=== PATIENT | female | born 1935 | race Caucasian/White ===

== ENCOUNTER 2017-09-24 09:15 | Outpatient (CLI) | payer MEDICARE, BC ==
--- NOTE | 2017-09-24 11:36 | CT ---
CTA OF THE ABDOMEN AND PELVIS AND BILATERAL LOWER EXTREMITIES FOR RUNOFF: HISTORY: Bilateral leg pain and night cramps. 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 History of abdominal aortic aneurysm repair. COMPARISON: None. TECHNIQUE: Multiple contiguous axial images were obtained in a CTA of the abdomen, pelvis, and bilateral lower e xtremities for runoff, and 3D sagittal and coronal MIP reformats were performed. FINDINGS: There are multiple cysts in the bilateral kidneys, measuring up to 4 cm in size. The gallbladder has been removed. There is mild enlargement of the common bile duct, which may be a reservoir effect fr om the cholecystectomy. The liver, adrenal glands, spleen, and pancreas are unremarkable. No free a ir, free fluid, or stranding changes are seen in the abdomen or pelvis. A moderate amount of stool is seen in the rectum. The reproductive organs are atrophic. The large a nd small bowel are unremarkable. No abdominal or pelvic lymphadenopathy is seen. The patient is status post aortobifemoral bypass. Moderate atherosclerotic disease is seen within th e aorta. The celiac trunk and SMA are patent, with mild nonfocal atherosclerotic disease. There are two renal arteries on the left and a single renal artery on the right. Mild atherosclerotic disease is seen in the right renal artery. There is occlusion of the [place] distal aorta, above the bifurcation and common iliac arteries. The internal iliac arteries and ek[place] external iliac arteries also do not contain flow. The aortobifemoral bypass graft shows mild narrowing on the right, at the anastomosis, and moderate n arrowing on the left, at the anastomosis. The [place] common femoral arteries show moderate diffuse a therosclerotic disease bilaterally. The profunda femoral arteries are patent. There is moderate dif fuse nonfocal atherosclerotic disease throughout the superficial femoral arteries. This superficial femoral artery disease is slightly more prominent distally. Both popliteal arteries show moderate di ffuse nonfocal atherosclerotic disease. Three-vessel runoff is seen on the left with mild diffuse nonfocal atherosclerotic disease. There is diffuse atherosclerotic disease in the vessels on the right. The anterior tibial artery on the righ t appears occluded with two-vessel runoff on the right. IMPRESSION: 1. Status post aortobifemoral bypass with stenosis of the bypass graft at the femoral artery anastom osis, left greater than right. 2. Moderate diffuse atherosclerotic disease in the superficial femoral arteries and popliteal arteri es. 3. Three-vessel left and two-vessel right runoff with mild to moderate atherosclerotic disease in al l three runoff vessels bilaterally. 4. Bilateral renal cysts. POS: [facility]
[2017-09-24] MEDS ORDERED: Iopamidol 370 76% 100 ML VIAL ONE (13:40)
== END 2017-09-24 09:16 | disposition home or self-care (01) ==
LOC: CT 09:15
PROVIDERS: ATTEND Thoracic Surgery (Cardiothoracic Vascular Surgery)
DX: I70.213 Atherosclerosis of native arteries of extremities with intermittent claudication, bilateral legs (principal); N28.1 Cyst of kidney, acquired
CPT/HCPCS: 75635

== ENCOUNTER 2019-06-01 20:40 | Inpatient (IN) | payer MEDICARE ==
[~2019-06-01 20:40] MED LIST: ISOVUE-370 76%-LOCM 1 ML ONE
[2019-06-01 21:18] LABS: #Lymphocytes 0.6 thou/uL (1.20-3.40); #Monocytes 0.9 thou/uL (0.11-0.59); #Neutrophils 12.4 thou/uL (1.40-6.50); %Basophils 0.3 % (0.0-1.0); %Eosinophils 0.2 % (0.0-10.0); %Lymphocytes 4.6 % (21.0-51.0); %Monocytes 6.2 % (0.0-10.0); %Neutrophils 88.7 % (42.0-75.0); Hemoglobin 13.9 g/dL (12.0-16.0); Mean Corpuscular HGB CONC 33.5 g/dL (32.0-36.0); Mean Corpuscular Hemoglobin 30.7 pg (27.0-31.0); Mean Corpuscular Volume 91.4 fL (78.0-98.0); Mean Platelet Volume 8.2 fL (7.4-10.4); Platelet Count 198 thou/uL (130-400); RBC Distribution Width 13.1 % (11.5-14.5); Red Blood Cell (RBC) Count 4.53 mill/uL (4.20-5.40)
[2019-06-01] MEDS ORDERED: Adacel (T-DAP) 0.5 ML SYRINGE ONE (21:26)
[2019-06-01 21:36] LABS: Bacteria/HPF 4+ HPF (None Seen); Bilirubin Negative (Negative); Blood, Urine Negative (Negative); Clarity Turbid (Clear); Glucose, Urine (Dipstick) Normal (Negative); Leukocyte 500 Leu/uL (Negative); Nitrite Negative (Negative); Protein, Urine (Dipstick) 30 mg/dL (Neg-Trace); RBC/HPF 0-3 HPF (0-3); Squamous Epithelial 0-3 HPF (0-3); Urobilinogen Normal mg/dL (Less than 2)
[2019-06-01 21:37] LABS: WBC/HPF 21-50 HPF (0-3); Yeast-Budding None Seen HPF (None Seen)
[2019-06-01 21:37] LABS: ALT (SGPT) 9 U/L (8-55); AST (SGOT) 15 U/L (5-34); Albumin 4.4 g/dL (3.4-4.8); Alkaline Phosphatase 28 U/L (40-110); Anion Gap 16 mmol/L (10-20); BUN (Urea Nitrogen) 42 mg/dL (9.8-20.1); Bilirubin, Total 0.8 mg/dL (0.2-1.2); Calc. Creatinine Clearance 0 mL/min (70-130); Calcium 10.5 mg/dL (7.8-10.44); Carbon Dioxide 22 mmol/L (23-31); Chloride 105 mmol/L (98-107); Estimated GFR-MDRD 43; Globulin 3.1 g/dL (2.4-3.5); Glucose 157 mg/dL (83-110); Lipase Less than 4 U/L (8-78); Potassium 3.8 mmol/L (3.5-5.1); Protein, Total 7.5 g/dL (6.0-8.3); Sodium 139 mmol/L (136-145)
[2019-06-01 21:59] LABS: CKMB 2.2 ng/mL (0-6.6)
--- NOTE | 2019-06-01 22:00 | CT ---
EXAM: Brain CT scan Without contrast: HISTORY: Injury from trauma COMPARISON: None FINDINGS: Atrophy and chronic white matter ischemic change. No focal mass or midline shift. No intra or extra-axial hemorrhage. The visualized sinuses and mastoids are clear of acute process. IMPRESSION: No mass or bleed or other significant acute intracranial process.
--- NOTE | 2019-06-01 22:05 | CT ---
Exam: Facial bone CT scan without IV contrast: HISTORY: Injury from trauma, unwitnessed fall. FINDINGS: Soft tissue swelling over the left upper cheek and left periorbital region. 1.1 x 1.6 cm diameter lef t frontal sinus osteoma. Minimal sinus mucosal disease involving the ethmoid bulla. No evidence for acute fracture or dislocation. The orbits appear intact. The mandible appears intact. There is some d iffuse bony demineralization. No sinus fluid. IMPRESSION: Left upper facial and periorbital soft tissue swelling without acute fracture or dislocation.
--- NOTE | 2019-06-01 22:09 | CT ---
EXAM: CT scan cervical spineWithout contrast: HISTORY: Injury from a fall, trauma COMPARISON: None FINDINGS: No evidence for acute fracture or facet dislocation. No significant malalignment. No prevertebral soft tissue swelling. Some nodularity involving the thyroid gland with a 1.1 x 1.7 cm diameter densely calcified probable s uperior thyroid nodule. Chronic changes in the lung apices. Bony demineralization. IMPRESSION: No evidence for acute fracture or facet dislocation or other significant acute process.
--- NOTE | 2019-06-01 22:26 | CT ---
EXAM: Chest abdomen and pelvic CT scanwith IV contrast: Thoracic spine CT scan,limitedwith IV contrast: Lumbar spine CT scan limitedwith IV contrast: HISTORY: Injury from trauma COMPARISON: None FINDINGS: Chest abdomen and pelvis CT: No pneumothorax or pleural effusion or pericardial effusion. No mediastinal hematoma. The aorta appears unremarkable Somewhat spiculated appearing right upper lobe nodule measuring 0.9 cm. Pulmonary consultation is reg ards to be considered. Bullous changes and chronic lung changes in the apices as well as some chronic changes in the lung ba ses. Liver:Unremarkable Gallbladder:Status post cholecystectomy with some dilatation of the common duct and central intrahepa tic ducts. Prominent vascular calcifications with focal aneurysmal dilatation of 3.1 cm at the level of distal a aleksandr. Aortobifemoral bypass grafting. Bilateral renal cysts. Minimal wall thickening of the rectal sigmoid portion of the colon as well as some mild dilatation of scattered small bowel loops with some possible mild small bowel wall thickening, nonspecific possibly related to some interval colitis with particular involvement of the rectal sigmoid. Diffuse bone demineralization. Postop internal fixation right hip. Pancreas:Unremarkable Spleen:Unremarkable Kidneys:Unremarkable No intraperitoneal fluid or retroperitoneal hematoma. No evidence for acute fracture or dislocation. IMPRESSION: Spiculated nodule of concern in the right upper lobe. Small abdominal aortic aneurysm. Minimal wall thickening of the rectosigmoid portion of the colon as well as small bowel loops, eviden ce for nonspecific enterocolitis. No evidence for significant acute posttraumatic process in the chest abdomen or pelvis. Thoracic spine CT: IMPRESSION: Multilevel spondylosis with disc osteophytosis and diffuse bony demineralization without acute fractu re. Lumbar spine CT: IMPRESSION: Disc osteophytosis with bony demineralization without acute fracture or dislocation. Multilevel spina l canal stenosis of the lower lumbar spine.
[2019-06-01] MEDS ORDERED: cefTRIAXone\\ROCEPHIN 2 GM VIAL ONE (22:50)
--- NOTE | 2019-06-01 23:10 | RAD ---
Exam: Right finger 2 views: HISTORY: Injury from trauma FINDINGS: Bony demineralization with arthrosis and degenerative changes particularly involving the trapezium fi rst metacarpal joint. Minimal soft tissue swelling. No overt acute fracture. IMPRESSION: Arthrosis and degenerative changes with bony demineralization without overt acute fracture.
--- NOTE | 2019-06-01 23:57 | PDOC.FPRHP ---
- History of Present Illness Chief Complaint: Syncope, Abdominal pain History of Present Illness: Patient is an 83 yo female who presents to [facility] ED after a syncopal episode that occurred earlier today. Patient states that she was walking up to her porch outside her home when she tripped, fell, and hit her head. Of note, the ED provider was given a different story about the patient having an unwitnessed fall, "waking up" on the ground with no memory of falling or why she was laying on the ground. Patient was brought by EMS to the ED and remembers this occurring. She has questionable memory about her fall vs passing out. Her daughter met her at the ED and is unsure of the history of what happened earlier in the day. The patient's daughter relays that the patient has been complaining of cramping in her lower abdomen the past 2 days. Patient states that she currently has some abdominal pain described as aching and cramping. Denies suprapubic pressure or dysuria. States for past few days she has not had much to eat or drink and complains of decreased appetite. Denies nausea/vomiting , fever/chills. ED Course: Given 2g Rocephin. NS 500 cc bolus. Given Tetanus vaccine. - Allergies/Adverse Reactions Allergies Allergy/AdvReac Type Severity Reaction Status Date / Time Penicillins Allergy Severe Anaphylaxis Verified 06/02/19 01:25 - Home Medications Medication Instructions Recorded Confirmed Type Apixaban [Eliquis] 2.5 mg PO BID 06/02/19 06/02/19 History Atorvastatin Calcium [Lipitor] 20 mg PO DAILY 06/02/19 06/02/19 History Citalopram [CeleXA] 10 mg PO DAILY 06/02/19 06/02/19 History Clopidogrel Bisulfate [Clopidogrel] 75 mg PO DAILY 06/02/19 06/02/19 History Digoxin [Digox] 125 mcg PO DAILY 06/02/19 06/02/19 History Fenofibrate 160 mg PO DAILY 06/02/19 06/02/19 History Furosemide 40 mg PO DAILY 06/02/19 06/02/19 History Losartan [Cozaar] 25 mg PO DAILY 06/02/19 06/02/19 History Metoprolol Tartrate 25 mg PO BID 06/02/19 06/02/19 History Multivit-Min/Iron/Folic/Lutein 1 each PO DAILY 06/02/19 06/02/19 History [Multivitamin Women 50 Plus Tab] Nitroglycerin [Nitrostat] 0.4 mg SL Q5MIN 06/02/19 06/02/19 History Potassium Chloride [K-Dur] 20 meq PO DAILY 06/02/19 06/02/19 History Spironolactone 12.5 mg PO DAILY 06/02/19 06/02/19 History Vitamin E 400 unit PO DAILY 06/02/19 06/02/19 History Comments: Current home meds (brought with patient): Atorvastatin, Citalopram, Clopidogrel , Digoxin, Eliquis, Plavix, KCl 20, Fenofibrate, Nitro, Spironolactone, Furosemide, Losartan - History PMHx: Uterine cancer (dx in 1967, denies hysterectomy), HFrEF w/ AICD, Afib, HTN , HLD, AAA, arthritis PSHx: AICD placement, stents, right hip fracture repair, bilateral cataracts, cholecystectomy, aorto bifemoral bypass FHx: daughter with Breast cancer, daughter with Lung and Brain cancer Social: Denies EtOH use. Former smoker, quit 10 years ago. - Review of Systems General: reports: fatigue, other (decreased appetite). denies: fever/chills Eyes: denies: vision changes ENT: denies: nasal congestion Respiratory: denies: cough, congestion, shortness of breath Cardiovascular: denies: chest pain, edema Gastrointestinal: reports: abdominal pain. denies: nausea, vomiting, diarrhea, constipation Genitourinary: denies: dysuria Skin: denies: rashes, itching Musculoskeletal: reports: pain. denies: swelling Neurological: reports: syncope, weakness. denies: numbness, seizure - Vital signs BP: 129/98 HR: 79 RR: 18 Tmax: 98.5F Pox: 92% on RA Wt: 56 kg - Physical Exam Constitutional: NAD, well developed -Constitutional: Alert, oriented to person, place, and time. Questionable historian, group home memory appears intact, questionable recent/short term memory loss HEENT: EOMI, conjunctiva clear, grossly normal vision, MMM -HEENT: hematoma around left orbit and left cheek. laceration to upper and lower lips. dried blood present around mouth and in oropharynx but no active bleeding noted. Neck: supple, FROM, no JVD Chest: no-tender to palpation, no lesions Heart: normal S1/S2, no edema -Heart: Paced rhythm. Systolic murmur over mitral area. Diminished pulses in bilateral lower extremities. Lungs: CTAB, no respiratory distress, no rales/rhonchi, no wheezing Abdomen: soft -Abdomen: TTP over mid-abdomen and suprapubic areas. Mild fluid wave present. Asymmetrical soft bulging area on right mid abdomen. Musculoskeletal: normal tone Neurological: no focal deficit, normal sensation -Neurological: Strength 5/5 in all extremities. -Skin: Poor skin turgor. Multiple lacerations to left face, lips, and fingers. Psychiatric: normal mood and affect FMR H&P: Results - Labs Result Diagrams: 06/01/19 21:06 06/01/19 21:06 Lab results: WBC 14.0 thou/uL (4.8-10.8) H 06/01/19 21:06 Hgb 13.9 g/dL (12.0-16.0) 06/01/19 21:06 Hct 41.4 % (36.0-47.0) 06/01/19 21:06 MCV 91.4 fL (78.0-98.0) 06/01/19 21:06 Plt Count 198 thou/uL (130-400) 06/01/19 21:06 Neutrophils % 88.7 % (42.0-75.0) H 06/01/19 21:06 Sodium 139 mmol/L (136-145) 06/01/19 21:06 Potassium 3.8 mmol/L (3.5-5.1) 06/01/19 21:06 Chloride 105 mmol/L (98-107) 06/01/19 21:06 Carbon Dioxide 22 mmol/L (23-31) L 06/01/19 21:06 BUN 42 mg/dL (9.8-20.1) H 06/01/19 21:06 Creatinine 1.19 mg/dL (0.6-1.1) H 06/01/19 21:06 Glucose 157 mg/dL (83-110) H 06/01/19 21:06 Calcium 10.5 mg/dL (7.8-10.44) H 06/01/19 21:06 Total Bilirubin 0.8 mg/dL (0.2-1.2) 06/01/19 21:06 AST 15 U/L (5-34) 06/01/19 21:06 ALT 9 U/L (8-55) 06/01/19 21:06 Alkaline Phosphatase 28 U/L (40-110) L 06/01/19 21:06 CK-MB (CK-2) 2.2 ng/mL (0-6.6) 06/01/19 21:06 Serum Total Protein 7.5 g/dL (6.0-8.3) 06/01/19 21:06 Albumin 4.4 g/dL (3.4-4.8) 06/01/19 21:06 Lipase Less than 4 U/L (8-78) L 06/01/19 21:06 Urine Ketones Negative mg/dL (Negative) 06/01/19 21:15 Urine Blood Negative (Negative) 06/01/19 21:15 Urine Nitrite Negative (Negative) 06/01/19 21:15 Ur Leukocyte Esterase 500 Chantal/uL (Negative) A 06/01/19 21:15 Urine RBC 0-3 HPF (0-3) 06/01/19 21:15 Urine WBC 21-50 HPF (0-3) A 06/01/19 21:15 Ur Squamous Epith Cells 0-3 HPF (0-3) 06/01/19 21:15 Urine Bacteria 4+ HPF (None Seen) A 06/01/19 21:15 - EKG Interpretation EKG: paced rhythm at 78 bpm T wave inversions in I, II, V5, V6 FMR H&P: A/P - Problem List (1) UTI (urinary tract infection) Current Visit: Yes Status: Acute Qualifiers: Urinary tract infection type: acute cystitis Hematuria presence: without hematuria Qualified Code(s): N30.00 - Acute cystitis without hematuria (2) Syncope Current Visit: Yes Status: Acute Code(s): R55 - SYNCOPE AND COLLAPSE Qualifiers: Syncope type: unspecified Qualified Code(s): R55 - Syncope and collapse (3) Hypertension Current Visit: Yes Status: Acute Code(s): I10 - ESSENTIAL (PRIMARY) HYPERTENSION Qualifiers: Hypertension type: essential hypertension Qualified Code(s): I10 - Essential (primary) hypertension (4) HFrEF (heart failure with reduced ejection fraction) Current Visit: Yes Status: Acute Code(s): I50.20 - UNSPECIFIED SYSTOLIC ( CONGESTIVE) HEART FAILURE Qualifiers: Heart failure chronicity: chronic Qualified Code(s): I50.22 - Chronic systolic (congestive) heart failure - Plan Patient is a 83 year old female who presents with syncope and abdominal pain is admitted for UTI and further syncope workup: #Syncope/Fall -dahl-CT in ED negative for acute pathology -Stress test in AM -Echo in AM -obtain orthostatic vitals -vitals q4hr, strict I/Os -Neuro checks q4h -place on telemetry monitoring -PT/OT consults, appreciate recs #UTI -UA: 500 LE, 30 Protein, 21-50 WBC, Bact 4+ -given Rocephin 2g in ED -will continue Rocephin at 1g q24h (next dose @ 2300 on 06/02) -Urine culture pending #VIRIDIANA vs CKD -BUN 42, Cr 1.19 -half maintenance IVF LR @ 50 ml/hr #Acute Hypoxic Respiratory Failure -patient now requiring 2L of O2 -not previously on O2 at home -continue to monitor with goal to keep O2 sat >92% #Hypertension -BP in ED 129/98 -vitals q4hr -continue home meds: Losartan, Spironolactone -hold home Metoprolol for AM stress test #HFrEF -last Echo unknown -has AICD placed -systolic murmur on exam -will check Transthoracic Echo in AM, if abnormal consider Cardiology consult -continue home med: Furosemide, Digoxin, KCl 20 #AFib -AICD placed -EKG shows paced rhythm at 78, T-wave inversions in I, II, V5, V6 -obtain pacemaker interrogation during this stay, last interrogation unknown -telemetry monitoring -hold home med: Eliquis--due to recent fall with head trauma #Lung Nodule -CT chest in ED shows 0.9 mm spiculated nodule in right upper lobe of lung -consider Pulmonology consult #Abdominal Aortic Aneurysm -CT abdomen in ED shows AAA with 3.1 cm dilatation -previous surgery for aorto-bifemoral bypass #HLD -continue home med: Atorvastatin, Plavix, Fenofibrate #Depression -lost in January 2019, lost daughter in February 2019 to lung & brain cancer -continue home med: Citalopram Diet: Heart healthy, NPO at midnight for stress test VTE: SCDs, home Eliquis held for 12-24 hours given recent fall with head trauma Code: FULL Dispo: Stable, admitted to observation on telemetry unit. Plan for stress test and Echo in AM. Consider Cardiology and Pulmonology consults. Anticipated LOS < 2 days. FMR H&P: Upper Level - Pertinent history 83 year old female presents with possible syncopal episode. Patient poor historian. On questioning, patient reports that she was walking on the front porch toward the house when she fell. She cannot definitively say if she lost consciousness. Patient reports that she remembers falling and her son helping her up from the ground. She has had abdominal cramping/bloating for the past two days but has otherwise felt fine. Patient denies fever, chills, shortness of breath. Patient has history of HFrEF with AICD in place. She has no documented history of CAD. Patient does have history of Afib with pacer, as well as HTN. Patient states she has had decreased appetite today. She last ate/ drank at breakfast. Patient's daughter reports that over the last several weeks , her mentation has declined. She has recently confused dates and lost track of time. Up to this point, patient has been doing well. She performs her own ADL' s. Patient is currently complaining of left sided rib pain. - Pertinent findings General: Alert and oriented x3. Patient in mild amount of distress 2/2 pain from fall. HEENT: EOMI. Dry MM. Blood noted in back of throat on exam. Card: Occasional skipped beat. Systolic murmur. Resp: CTA bilaterally. On oxygen supplementation. Abd: Soft, mild distention, no palpable masses Ext: No cyanosis or edema. Skin: Echymosis on face, limbs, and abdomen. Hemostatic bleeding, evident particularly on face around lips. - Plan Date/Time: 06/01/19 [id number] IMargo, have evaluated this patient and agree with findings/plan as outlined by internet developer resident. Pertinent changes/additions are listed here. Syncopal episode - Questionable based on history - Given EKG changes with inverted twaves in leads I, II and V5, V6, concern for cardiac etiology of syncope; No prior EKG's for comparison - Orthostatics pending - Echo pending; patient with history of HFrEF with AICD - HH diet; NPO 00:00 - Stress test AM; may consider holding off if patient determines that she would not want any interventions. - Concern carotid dopplers or CTA head/neck if further concern arises for stroke /TIA. - Electrolytes WNL - TSH pending. - Mg, P pending - Interrogate pacemaker - PT/OT consulted - Continuous telemetry monitoring s/p ground level fall in geriatric patient - On eliquis - CT brain negative for bleed, will continue to monitor over the next 12-24 hours - Q4h neuro checks - Will hold eliquis for next 12-24 hours - CT abdomen/pelvis, CT chest negative Acute hypoxic respiratory failure - Patient on 2L of O2 satting 94% - Does not use O2 chronically - Does not appear to be in acute HF exacerbation - Continue to monitor and titrate off O2 as tolerated VIRIDIANA vs. CKD - Uncertain of baseline - Continue to monitor - Gentle fluids given history of HFrEF HTN - Continue home BP medications Indeterminate troponins - Continue to trend - EKG changes with inverted t waves in leads I, II, V5, V6 Hx of Afib - On eliquis - Will hold for 12-24 hours - Has pacer HFrEF - Uncertain of baseline EF - Repeat echo pending - AICD in place - Systolic murmur heard on exam - Continue home medications UTI - UA: 500 LE, 30 Protein, 21-50 WBC, Bact 4+ - Given Rocephin 2g in ED - Will continue Rocephin at 1g q24h - Urine culture pending Lung Nodule - CT chest in ED shows 0.9 mm spiculated nodule in right upper lobe of lung - Consider Pulmonology consult Abdominal Aortic Aneurysm - CT abdomen in ED shows AAA with 3.1 cm dilatation - Previous surgery for aorto-bifemoral bypass HLD - Continue home medications Depression - Lost in January 2019, lost daughter in February 2019 to lung & brain cancer - Continue home medication Diet: Heart healthy, NPO at midnight for stress test VTE: SCDs, home Eliquis held for 12-24 hours given recent fall with head trauma Code: FULL Dispo: Stable. Obs on telemetry. Anticipate LOS <48 hours. Addendum - Attending - Attending Attestation Date/Time: 06/01/19 [id number] I personally evaluated the patient and discussed the management with Dr. Patino and Dr. Deborah I agree with the History, Examination, Assessment and Plan documented above with any addition or exceptions noted below. Admit overnight. Treat UTI. Continue work for syncopal episode. Significant trauma with risk for delayed intracerebral bleeding due to plavix and eliquis. Adjust home meds as needed. Monitor for arrhythmias. Trend VS. Would consider SNF if family not able to monitor closely. [place]
[2019-06-02 00:50] LABS: Troponin I 0.046 ng/mL (< 0.028)
[2019-06-02] MEDS ORDERED: Calcium Carbonate 500 MG ChewTAB PO PRN (01:08)
[2019-06-02] MEDS ORDERED: Ondansetron ODT 4 MG TAB PO PRN (01:08)
[2019-06-02] MEDS ORDERED: Senokot S 8.6-50 MG TAB PO PRN (01:08)
[2019-06-02] MEDS: Lactated Ringer's 1,000 ML IV SCH ×2 (01:42→22:56)
[2019-06-02] MEDS: Acetaminophen 325 MG TAB PO PRN ×3 (01:42→17:37)
[2019-06-02] MEDS ORDERED: Nitroglycerin 0.4 MG TAB (25 Tab Bottle) SL PRN (03:30)
[2019-06-02 03:55] LABS: Magnesium 1.5 mg/dL (1.6-2.6); Phosphorus 3.5 mg/dL (2.3-4.7)
[2019-06-02 03:59] LABS: Troponin I 0.034 ng/mL (< 0.028)
--- NOTE | 2019-06-02 06:08 | PDOC.FM ---
- Subjective Subjective: Pt AxO x3. She has pain on her left side of her face and left ribs, the side on which she fell. Otherwise, she denies other symptoms. She reports she has had cardiac stress test and cath in the past. When asked if she would want a cath now, she does not know. She reports being fairly independent and lives with her step-son currently. - Objective MAR Reviewed: Yes Vital Signs & Weight: Vital Signs (12 hours) Temp Pulse Resp BP BP Pulse Ox 06/02/19 04:59 70 18 138/63 93 L 06/02/19 01:12 98.7 F 70 18 108/57 L 94 L 06/02/19 01:08 94 L Weight Weight 56.835 kg Result Diagrams: 06/03/19 06:27 06/03/19 06:27 Phys Exam - Physical Examination Constitutional: NAD HEENT: PERRLA, sclera anicteric Respiratory: no wheezing, clear to auscultation bilateral Cardiovascular: RRR (3/6 systolic murmur) Gastrointestinal: soft, non-tender, no distention, positive bowel sounds Musculoskeletal: no edema, pulses present Neurological: non-focal, moves all 4 limbs Lymphatic: no nodes Psychiatric: normal affect, A&O x 3 Skin: no rash Deviation from normal: Bruising over left face, tenderness over left ribs w/o bruising. Dx/Plan (1) HFrEF (heart failure with reduced ejection fraction) Code(s): I50.20 - UNSPECIFIED SYSTOLIC (CONGESTIVE) HEART FAILURE Status: Chronic Qualifiers: Heart failure chronicity: chronic Qualified Code(s): I50.22 - Chronic systolic (congestive) heart failure (2) Hypertension Code(s): I10 - ESSENTIAL (PRIMARY) HYPERTENSION Status: Chronic Qualifiers: Hypertension type: essential hypertension Qualified Code(s): I10 - Essential (primary) hypertension (3) Syncope Code(s): R55 - SYNCOPE AND COLLAPSE Status: Acute Qualifiers: Syncope type: unspecified Qualified Code(s): R55 - Syncope and collapse (4) UTI (urinary tract infection) Status: Acute Qualifiers: Urinary tract infection type: acute cystitis Hematuria presence: without hematuria Qualified Code(s): N30.00 - Acute cystitis without hematuria - Plan Plan: Patient is a 83 year old female who presents with syncope and abdominal pain is admitted for UTI and further syncope workup: Syncope w/ Fall vs. mechanical ground-level fall -dahl-CT in ED negative for acute pathology -Stress test in AM -Echo in AM -orthostatic vitals pending -vitals q4hr, strict I/Os -Neuro checks q4h -place on telemetry monitoring -PT/OT consults, appreciate recs UTI -UA: 500 LE, 30 Protein, 21-50 WBC, Bact 4+ -given Rocephin 2g in ED -Continue Rocephin at 1g q24h (next dose @ 2300 on 06/02) -Urine culture pending VIRIDIANA vs CKD -BUN 42, Cr 1.19, baseline is not known -half maintenance IVF LR @ 50 ml/hr Acute Hypoxic Respiratory Failure -patient now requiring 2L of O2, not previously on O2 at home, however, she reports she sleeps on 2L O2 at night -continue to monitor, likely will not need O2 during the day Hypertension -BP in ED 129/98 -vitals q4hr -continue home meds: Losartan, Spironolactone -hold home Metoprolol for AM stress test HFrEF -last Echo unknown -has AICD placed -will check Transthoracic Echo in AM, if abnormal consider Cardiology consult -Pt is unsure if she would want surgery/cath, for now will continue w/ plan of stress test for her EKG changes and slightly elevated troponins -continue home med: Furosemide, Digoxin, KCl 20 A-Fib -AICD is pacing -obtain pacemaker interrogation -hold home med: Eliquis--due to recent fall with head trauma Lung Nodule -CT chest in ED shows 0.9 mm spiculated nodule in right upper lobe of lung -consider Pulmonology consult Abdominal Aortic Aneurysm -CT abdomen in ED shows AAA with 3.1 cm dilatation -previous surgery for aorto-bifemoral bypass, extensive smoking history -monitor, no specific intervention required HLD -continue home med: Atorvastatin, Plavix, Fenofibrate Depression -lost in January 2019, lost daughter in February 2019 to lung & brain cancer -continue home med: Citalopram Diet: Heart healthy, NPO at midnight for stress test VTE: SCDs, home Eliquis held for 12-24 hours given recent fall with head trauma Code: FULL Dispo: Stable, tele obs. Addendum - Attending - Attending Attestation Date/Time: 06/03/19 0836 I personally evaluated the patient and discussed the management with Dr. Freitas I agree with the History, Examination, Assessment and Plan documented above with any addition or exceptions noted below- Patient states that just doesn't feel well. Afebrile VSS. A/P: 1) Syncope- stress, echo pending. 2) UTI- continue rocephin and await culture result. 3) Deconditioning- rehab vs SNF vs home health
[2019-06-02] MEDS ORDERED: Magnesium 2 GM/50 ML 2 GM in Premix Bag 1 BAG IVPB SCH (08:45)
[2019-06-02] MEDS ORDERED: Prevnar 13-Val Conj/PF 0.5 ML SYRINGE IM ONE (09:00)
[2019-06-02] MEDS ORDERED: Clopidogrel Bisulfate 75 MG TAB PO SCH (09:00)
[2019-06-02] MEDS: Citalopram 10 MG TAB PO SCH (09:06)
[2019-06-02] MEDS: Potassium Chloride 20 MEQ TAB PO SCH (09:06)
[2019-06-02] MEDS: Digoxin 0.125 MG TAB PO SCH (09:06)
[2019-06-02] MEDS: Vitamin E 400 UNITS CAP PO SCH (09:06)
[2019-06-02] MEDS: Fenofibrate Nanocrystallized 145 MG TAB PO SCH (09:07)
[2019-06-02] MEDS: Atorvastatin Calcium 20 MG TAB PO SCH (09:07)
[2019-06-02] MEDS: Multivitamin W/ Minerals 1 TAB PO SCH (09:07)
[2019-06-02] MEDS: Spironolactone 25 MG TAB PO SCH (09:07)
[2019-06-02] MEDS: Furosemide 40 MG TAB PO SCH (09:08)
[2019-06-02] MEDS: Losartan 25 MG TAB PO SCH (09:08)
--- NOTE | 2019-06-02 17:15 | PRG ---
DATE OF SERVICE: 06/02/2019 Ms. Sousa gives a different history to various physicians asking her questions. Evidently she had some type of syncopal episode and we are in the midst of a workup for this. She is awaiting a stress Myoview and then we will proceed. Job ID: [id number]
--- NOTE | 2019-06-02 19:15 | NM ---
MYOCARDIAL PERFUSION SCAN: Technique: Patient was given 10 mCi Technetium 99M Sestamibi for rest imaging and 32 mCi Technetium 9 9M Sestamibi for rest imaging. Patient was stressed according to Adenosine protocol. Indications: Syncope. Abnormal EKG. FINDINGS: There is a large fixed defect involving the lateral wall. This defect involves the inferior lateral, anterior lateral, and apical lateral regions. Mild periinfarct reversible ischemia in the anterior ap ical portion of this lateral wall defect cannot be completely excluded. Wall motion shows global hypokinesis. Lateral dyskinesis. Ejection fraction recorded at 39%. IMPRESSION: Large fixed defect involving lateral wall with anterolateral, inferolateral, and apical lateral regio ns involved. I cannot exclude mild periinfarct reversible ischemia. POS: KARINA
[2019-06-02] MEDS ORDERED: ADENOSINE 60 MG/20 ML VIAL ONE (19:44)
[2019-06-02] MEDS: cefTRIAXone\\ROCEPHIN 1 GM in Sodium Chloride 0.9% 100 ML IVPB SCH (22:56)
[2019-06-03] MEDS: Acetaminophen 325 MG TAB PO PRN ×2 (04:10→10:14)
--- NOTE | 2019-06-03 06:26 | PDOC.FM ---
- Subjective Subjective: Pt reported she was feeling well and asymptomatic when I saw her this morning. Biggest complaint was rib pain on her left side where she fell and Left wrist pain which is bruised. Nurse paged shortly after and said pt became tachypneic to the 40s upon sitting up and was not able to stand to go to the bathroom. Saturations normal. Pt rested and RR decreased to 20s. Denied Chest pain w/ this episode. - Objective MAR Reviewed: Yes Vital Signs & Weight: Vital Signs (12 hours) Temp Pulse Resp BP BP Pulse Ox 06/03/19 04:03 99 F 70 20 141/64 H 95 06/03/19 01:04 94 L 06/02/19 19:25 99 F 74 18 162/69 H 94 L Weight Admit Weight 56.835 kg Weight 58.241 kg I&O: 06/01/19 06/02/19 06/03/19 06:59 06:59 06:59 Intake Total 2050 Output Total 800 Balance 1250 Result Diagrams: 06/03/19 06:27 06/03/19 06:27 Phys Exam - Physical Examination Constitutional: NAD HEENT: moist MMs Respiratory: no wheezing, no rales, clear to auscultation bilateral Cardiovascular: RRR, no significant murmur, no rub Gastrointestinal: soft, no distention tender to palpation of epigastric region and RUQ Musculoskeletal: no edema, pulses present Neurological: non-focal, moves all 4 limbs Psychiatric: normal affect Skin: no rash Dx/Plan (1) HFrEF (heart failure with reduced ejection fraction) Code(s): I50.20 - UNSPECIFIED SYSTOLIC (CONGESTIVE) HEART FAILURE Status: Chronic Qualifiers: Heart failure chronicity: chronic Qualified Code(s): I50.22 - Chronic systolic (congestive) heart failure (2) Hypertension Code(s): I10 - ESSENTIAL (PRIMARY) HYPERTENSION Status: Chronic Qualifiers: Hypertension type: essential hypertension Qualified Code(s): I10 - Essential (primary) hypertension (3) Syncope Code(s): R55 - SYNCOPE AND COLLAPSE Status: Acute Qualifiers: Syncope type: unspecified Qualified Code(s): R55 - Syncope and collapse (4) UTI (urinary tract infection) Status: Acute Qualifiers: Urinary tract infection type: acute cystitis Hematuria presence: without hematuria Qualified Code(s): N30.00 - Acute cystitis without hematuria - Plan Plan: Patient is a 83 year old female who presents with syncope and abdominal pain is admitted for UTI and further syncope workup: Syncope w/ Fall vs. mechanical ground-level fall -dahl-CT in ED negative for acute pathology -Stress test: cannot rule out dk-infarct reversible ischemia -Echo: EF 40-45%, AICD in place, severe LA dilation, mod RA dilation, mod MR, mod AR -Pacemaker interrogation showing no acute events -being ventricularly paced on tele -orthostatic vitals marginally positive, systolic 18 point decrease from sitting to standing -Gave 500mL bolus this AM for increased tachypnea when standing -vitals q4hr, strict I/Os -PT/OT consults, appreciate recs -Rehab screen pending, rehab vs home health or rehab followed by home health PT/ OT -Cardio Cm) consulted this AM regarding stress test results UTI -Continue Rocephin at 1g q24h, on day 2 -Urine culture pending VIRIDIANA, resolved -BUN 42, Cr 1.19, improved to 0.88 -half maintenance IVF LR @ 50 ml/hr Acute Hypoxic Respiratory Failure -sleeps on 2L O2 at night -continue to monitor, likely will not need O2 during the day Hypertension -vitals q4hr -continue home meds: Losartan, Spironolactone HFrEF -has AICD placed -continue home med: Furosemide, Digoxin, KCl 20 A-Fib, history of -AICD is pacing -obtain pacemaker interrogation -hold home med: Eliquis--due to recent fall with head trauma Lung Nodule -CT chest in ED shows 0.9 mm spiculated nodule in right upper lobe of lung -consider Pulmonology consult outpatient Abdominal Aortic Aneurysm -CT abdomen in ED shows AAA with 3.1 cm dilatation -previous surgery for aorto-bifemoral bypass, extensive smoking history -monitor, no specific intervention required HLD -continue home med: Atorvastatin, Plavix, Fenofibrate Depression -lost in January 2019, lost daughter in February 2019 to lung & brain cancer -continue home med: Citalopram Diet: Heart healthy VTE: SCDs, home Eliquis held for 12-24 hours given recent fall with head trauma Code: FULL Dispo: Stable, tele obs.
[2019-06-03 06:43] LABS: #Eosinphils 0.1 thou/uL (0.0-0.7); #Monocytes 0.9 thou/uL (0.11-0.59); #Neutrophils 12.3 thou/uL (1.40-6.50); %Eosinophils 0.4 % (0.0-10.0); %Lymphocytes 7.1 % (21.0-51.0); %Monocytes 6.3 % (0.0-10.0); %Neutrophils 86.1 % (42.0-75.0); Hemoglobin 13.3 g/dL (12.0-16.0); Mean Corpuscular HGB CONC 33.4 g/dL (32.0-36.0); Mean Corpuscular Hemoglobin 30.7 pg (27.0-31.0); Mean Corpuscular Volume 91.8 fL (78.0-98.0); Mean Platelet Volume 8.1 fL (7.4-10.4); Platelet Count 177 thou/uL (130-400); RBC Distribution Width 13.1 % (11.5-14.5); Red Blood Cell (RBC) Count 4.32 mill/uL (4.20-5.40); White Blood Cell (WBC) Count 14.2 thou/uL (4.8-10.8)
[2019-06-03 07:05] LABS: Anion Gap 14 mmol/L (10-20); BUN (Urea Nitrogen) 31 mg/dL (9.8-20.1); Calc. Creatinine Clearance 43 mL/min (70-130); Calcium 9.3 mg/dL (7.8-10.44); Carbon Dioxide 20 mmol/L (23-31); Chloride 110 mmol/L (98-107); Estimated GFR-MDRD 61; Glucose 122 mg/dL (83-110); Potassium 3.3 mmol/L (3.5-5.1); Sodium 141 mmol/L (136-145)
[2019-06-03] MEDS ORDERED: Sodium Chloride 0.9% 500 ML IV SCH (08:30)
[2019-06-03] MEDS: Potassium Chloride 20 MEQ TAB PO SCH (10:13)
[2019-06-03] MEDS: Losartan 25 MG TAB PO SCH (10:14)
[2019-06-03] MEDS: Spironolactone 25 MG TAB PO SCH (10:14)
[2019-06-03] MEDS: Fenofibrate Nanocrystallized 145 MG TAB PO SCH (10:14)
[2019-06-03] MEDS: Vitamin E 400 UNITS CAP PO SCH (10:14)
[2019-06-03] MEDS: Multivitamin W/ Minerals 1 TAB PO SCH (10:14)
[2019-06-03] MEDS: Citalopram 10 MG TAB PO SCH (10:14)
[2019-06-03] MEDS: Atorvastatin Calcium 20 MG TAB PO SCH (10:14)
[2019-06-03] MEDS: Digoxin 0.125 MG TAB PO SCH (10:14)
[2019-06-03] MEDS: Furosemide 40 MG TAB PO SCH (11:01)
--- NOTE | 2019-06-03 11:12 | CON ---
DATE OF CONSULTATION: HISTORY OF PRESENT ILLNESS: The patient is an 83-year-old woman, who presented after having a fall. The patient has a previous history of coronary artery disease. She also has a history of placement of an automatic implantable cardiac defibrillator. The patient was in her usual state of health when she had a fall. She states she has been feeling weak and had some diarrhea prior to losing consciousness. The patient denied having any chest discomfort. PAST MEDICAL HISTORY: 1. Coronary artery disease. 2. History of triple aortic aneurysm. 3. Peripheral vascular disease. 4. Hypertension. 5. Dyslipidemia. 6. Atrial fibrillation. 7. She also has history of uterine carcinoma. PAST SURGICAL HISTORY: Cholecystectomy, AAA surgery, hip surgery,and back surgery. ALLERGIES: PENICILLIN. MEDICATIONS: 1. Lipitor 40 at bedtime. 2. Citalopram 20 daily. 3. Plavix 75 daily. 4. Digoxin 0.125 daily. 5. Eliquis 2.5 b.i.d. 6. Lasix 40 daily. 7. Losartan 100 daily. 8. Metoprolol 50 daily. 9. Potassium 20 daily. 10. Spironolactone 25 daily. 11. Tricor 160 daily. FAMILY HISTORY: Positive family history of coronary artery disease. SOCIAL HISTORY: Nonsmoker. REVIEW OF SYSTEMS: Noticeable for decreased appetite and weight. PHYSICAL EXAMINATION: GENERAL: Thin woman, who has a bruise over her left orbital. NECK: Showed no jugular venous distention. LUNGS: Clear to auscultation. HEART: Regular rate and rhythm. Normal S1 and S2. 1/6 systolic murmur. ABDOMEN: Nondistended. EXTREMITIES: Showed no edema. VASCULAR: Radial pulses 2+. LABORATORY RESULTS: White blood cell count 14.2, hemoglobin 13.3, hematocrit 39.7, platelets 177. Sodium is 141, potassium 3.3, chloride 110, bicarb 20, BUN 31, and creatinine 0.88, glucose is 122. Troponin 0.034. Her EKG revealed an electronic ventricular pacemaker. Interrogation revealed no atrial fibrillation or ventricular arrhythmias. IMPRESSION: 1. Syncope, probably orthostatic. 2. History of cardiomyopathy. 3. History of AICD placement. 4. History of PTCA and stent placement. 5. History of atrial fibrillation. 6. Hypertension. 7. Dyslipidemia. This patient presents after having a fall. Her defibrillator was interrogated and was unremarkable. Most likely, she was orthostatic. From a cardiac standpoint, she could not be safely kept on Eliquis. We will ask EP to evaluate. We will follow this patient with you through her hospitalizatin. Job ID: [id number] TRUONG
[2019-06-03] MEDS ORDERED: Gabapentin 100 MG CAP PO SCH ×2 (11:15→21:00)
--- NOTE | 2019-06-03 11:20 | RAD ---
EXAM: 3 views of the left wrist HISTORY: Wrist pain after fall COMPARISON: None FINDINGS: 3 views of the left wrist shows no evidence of acute fracture or dislocation. No soft tissu e swelling is seen. Mild first CMC and wrist degenerative changes are present. Vascular calcic lesions are seen. IMPRESSION: No evidence of acute osseous abnormality.
--- NOTE | 2019-06-03 11:58 | PRG ---
DATE OF SERVICE: 06/03/2019 Ms. Sousa is resting quietly in bed. She does complain about some pain and swelling in her left wrist and this will be x-rayed as resulted from trauma. She has been seen in consultation by the Cardiology Service, who felt that her recent syncopal episode was likely due to orthostatic hypotension. We will continue to carefully monitor her blood pressure as well as her blood pressure medications. We will x-ray her left wrist. Job ID: [id number]
[2019-06-03] MEDS: Lactated Ringer's 1,000 ML IV SCH ×2 (17:14→22:08)
--- NOTE | 2019-06-03 21:37 | CON ---
DATE OF CONSULTATION: 06/03/2019 PRIMARY CARE PHYSICIAN: Gerardo Singh MD PRIMARY CARTOGRAPHIC DESIGNER: Mars Perry DO REASON FOR CONSULTATION: Syncope, atrial fibrillation, and INDEPENDENT LIVING SPECIALIST-D. CHIEF COMPLAINT: Syncope. HISTORY OF PRESENT ILLNESS: Ms. Sousa is a very pleasant 83-year-old white female, who is well known to me. She has a history of chronic systolic heart failure due to ischemic cardiomyopathy, Liu INDEPENDENT LIVING SPECIALIST-D implantation, coronary artery disease, chronic atrial fibrillation, and hypertension. She has chronic daily moderate exertional dyspnea, relieved with rest. She had a syncopal episode, which may have been due to dehydration and orthostatic hypotension. She does not remember the episode in details. Her son, with whom she lives, found her on the floor sitting up. He was able to lift her up to a chair. She was brought to the [facility] and admitted for observation. She had significant trauma to her face. She has left-sided pleuritic chest discomfort, which is moderate in severity, where she hit herself after falling. Interrogation of her Liu INDEPENDENT LIVING SPECIALIST-D shows normal function. She is still paced at VVI at a rate of 40. She feels much better since admission. Echocardiogram on 06/02/2019, shows ejection fraction of 40% to 45%, severely dilated left atrium, moderately dilated right atrium, moderate mitral regurgitation, aortic sclerosis, moderate aortic regurgitation, and [id number] tricuspid regurgitation. Her this past summer. Also this year, she had a daughter of cancer. She currently lives with her son. She has a daughter, who is with her today, who lives about 5 miles away. PAST MEDICAL HISTORY: 1. Chronic systolic heart failure. 2. Peripheral vascular disease with percutaneous intervention by Dr. Perry earlier this year. 3. Coronary artery disease, thought not to be a surgical candidate. 4. Chronic atrial fibrillation. 5. Hypertension. 6. Dyslipidemia. 7. Uterine carcinoma. 8. Abdominal aortic aneurysm. PAST SURGICAL HISTORY: 1. Liu INDEPENDENT LIVING SPECIALIST-D. 2. Cholecystectomy. 3. Abdominal aortic aneurysm repair. 4. Hip surgery. 5. Back surgery. ALLERGIES: PENICILLIN. OUTPATIENT MEDICATIONS: 1. Lipitor 40 mg at bedtime. 2. Citalopram 20 mg daily. 3. Plavix 75 mg daily. 4. Digoxin 0.125 mg daily. 5. Eliquis 2.5 mg b.i.d. 6. Lasix 40 mg daily. 7. Losartan 100 mg daily. 8. Metoprolol 50 mg daily. 9. Potassium 20 mEq daily. 10. Spironolactone 25 mg daily. 11. Tricor 160 mg daily. FAMILY HISTORY: Positive for coronary artery disease. SOCIAL HISTORY: As above. She is a nonsmoker. REVIEW OF SYSTEMS: Positive for anorexia and fatigue. Negative for chest discomfort, melena, bright red blood per rectum, hematemesis, unilateral weakness or numbness, speech deficits, or seizures. PHYSICAL EXAMINATION: VITAL SIGNS: Blood pressure 118/60, pulse 68, respiratory rate 12, and oxygen saturation 97% on 2 L nasal cannula. GENERAL: Alert and oriented x4. No apparent distress. Well groomed. Mood and affect, normal. SKIN: Ecchymosis to her left facial area. NECK: No jugular venous distention. CARDIOVASCULAR: Regular rate and rhythm. No murmurs, gallops, or rubs. LUNGS: Clear to auscultation bilaterally. Normal inspiratory effort. EXTREMITIES: No cyanosis, clubbing, or edema. LABORATORY DATA: EKG; atrial fibrillation with biventricular pacing. ASSESSMENT: 1. Syncope, possibly due to orthostasis and dehydration. 2. Trauma after fall. 3. Chronic atrial fibrillation, on Eliquis. 4. INDEPENDENT LIVING SPECIALIST-D. Interrogation today shows normal function. She has chronic atrial fibrillation with no significant high ventricular rates. 5. Coronary artery disease. No evidence of ischemia. 6. Chronic systolic heart failure. Mildly depressed left ventricular systolic function. RECOMMENDATIONS: 1. Agree with discontinuing Eliquis. 2. Consider left atrial appendage closure device. I discussed the procedure at length with the daughter and the patient. 3. Plan to follow up as an outpatient next week, where we will discuss the procedure further. Job ID: [id number]
[2019-06-03] MEDS: cefTRIAXone\\ROCEPHIN 1 GM in Sodium Chloride 0.9% 100 ML IVPB SCH (22:08)
[2019-06-03] MEDS: Gabapentin 100 MG CAP PO SCH (22:08)
[2019-06-04] MEDS ORDERED: Magnesium 2 GM/50 ML 2 GM in Premix Bag 1 BAG IVPB SCH ×2 (01:15→12:00)
[2019-06-04 01:28] LABS: Troponin I 0.024 ng/mL (< 0.028)
[2019-06-04 01:36] LABS: Magnesium 1.7 mg/dL (1.6-2.6); Phosphorus 1.3 mg/dL (2.3-4.7)
[2019-06-04] MEDS ORDERED: PHOS-NAK 1 PKT PACK PO SCH (02:15)
[2019-06-04] MEDS ORDERED: Loperamide HCl 1 MG/7.5 ML UDCUP PO PRN (04:19)
[2019-06-04] MEDS ORDERED: Diphenoxylate HCl/Atropine Tablet PO PRN (04:22)
--- NOTE | 2019-06-04 06:58 | PDOC.FM ---
- Subjective Subjective: Pt sleeping soundly this AM. On NC 3L O2. Baseline for her. Episode of torsades lasting 11 sec at 00:43 on 06/04. At this time her BP was 182/73. Magnesium was drawn and found to be 1.7 so was replaced w/ 2g IV. Phosphorus was 1.3 and replaced orally w/ [id number]. Per nursing 3 BMs overnight so a C-Diff test was ordered. Pt takes loperamide at home, instructions were given to nursing to hold this to avoid QT prolongation. Tmax overnight was 99.8 F. On telemetry pt continues to have frequent, but not sequential runs of PVCs and remains ventricularly paced. - Objective MAR Reviewed: Yes Vital Signs & Weight: Vital Signs (12 hours) Temp Pulse Resp BP Pulse Ox 06/04/19 04:00 98.7 F 76 18 111/53 L 95 06/04/19 00:46 63 182/73 H 06/03/19 19:28 99.8 F H 96 20 150/67 H 94 L Weight Admit Weight 56.835 kg Weight 58.241 kg I&O: 06/02/19 06/03/19 06/04/19 06:59 06:59 06:59 Intake Total 3000 950 Output Total 800 Balance 2200 950 Result Diagrams: 06/03/19 06:27 06/03/19 06:27 Phys Exam - Physical Examination Constitutional: NAD Respiratory: no wheezing, clear to auscultation bilateral Cardiovascular: RRR, no significant murmur Gastrointestinal: soft, non-tender Dx/Plan (1) HFrEF (heart failure with reduced ejection fraction) Code(s): I50.20 - UNSPECIFIED SYSTOLIC (CONGESTIVE) HEART FAILURE Status: Chronic Qualifiers: Heart failure chronicity: chronic Qualified Code(s): I50.22 - Chronic systolic (congestive) heart failure (2) Hypertension Code(s): I10 - ESSENTIAL (PRIMARY) HYPERTENSION Status: Chronic Qualifiers: Hypertension type: essential hypertension Qualified Code(s): I10 - Essential (primary) hypertension (3) Syncope Code(s): R55 - SYNCOPE AND COLLAPSE Status: Acute Qualifiers: Syncope type: unspecified Qualified Code(s): R55 - Syncope and collapse (4) UTI (urinary tract infection) Status: Acute Qualifiers: Urinary tract infection type: acute cystitis Hematuria presence: without hematuria Qualified Code(s): N30.00 - Acute cystitis without hematuria - Plan Plan: Patient is a 83 year old female who presents with syncope and abdominal pain is admitted for UTI and further syncope workup: Syncope w/ Fall vs. mechanical ground-level fall Orthostatic hypotension -dahl-CT in ED negative for acute pathology/fractures -Stress test: cannot rule out dk-infarct reversible ischemia -Echo: EF 40-45%, AICD in place, severe LA dilation, mod RA dilation, mod MR, mod AR -Pacemaker interrogation neg -orthostatic vitals + -PT/OT consults, appreciate recs -Rehab screen pending, rehab vs home health or rehab followed by home health PT/ OT -Cardio consult, appreciate recs. * discontinued lasix, continue spironolactone and losartan * consult EP to evaluate Hypomagnesemia Hypokalemia Hypophosphatemia - monitor and replete prn - labs in AM UTI -Continue Rocephin at 1g q24h, on day 3 -Urine culture: klebsiella pneumoniae, sensitive to everything except nitrofurantoin -Transition to oral abx today, note pt allergy to PCN VIRIDIANA, resolved - monitor Acute Hypoxic Respiratory Failure -sleeps on 2L O2 at night -continue to monitor, likely will not need O2 during the day Hypertension -vitals q4hr -continue home meds: Losartan, Spironolactone HFrEF -has AICD placed -continue home med: Digoxin, KCl 20 - HOLD home lasix A-Fib, history of -AICD is pacing -pacemaker interrogation neg. -hold home med: Eliquis--due to recent fall with head trauma Lung Nodule -CT chest in ED shows 0.9 mm spiculated nodule in right upper lobe of lung -consider Pulmonology consult outpatient Abdominal Aortic Aneurysm -CT abdomen in ED shows AAA with 3.1 cm dilatation -previous surgery for aorto-bifemoral bypass, extensive smoking history -monitor, no specific intervention required HLD -continue home med: Atorvastatin, Plavix, Fenofibrate Depression -lost in January 2019, lost daughter in February 2019 to lung & brain cancer -continue home med: Citalopram Diet: Heart healthy VTE: SCDs, home Eliquis held for 12-24 hours given recent fall with head trauma Code: FULL Dispo: Stable, tele obs
[2019-06-04 08:55] LABS: Anion Gap 15 mmol/L (10-20); BUN (Urea Nitrogen) 26 mg/dL (9.8-20.1); Calc. Creatinine Clearance 39 mL/min (70-130); Calcium 8.5 mg/dL (7.8-10.44); Carbon Dioxide 19 mmol/L (23-31); Chloride 111 mmol/L (98-107); Estimated GFR-MDRD 55; Glucose 128 mg/dL (83-110); Sodium 142 mmol/L (136-145)
[2019-06-04] MEDS: Atorvastatin Calcium 20 MG TAB PO SCH (08:58)
[2019-06-04] MEDS: Citalopram 10 MG TAB PO SCH (08:58)
[2019-06-04] MEDS: Digoxin 0.125 MG TAB PO SCH (08:58)
[2019-06-04] MEDS: Fenofibrate Nanocrystallized 145 MG TAB PO SCH (08:58)
[2019-06-04] MEDS: Losartan 25 MG TAB PO SCH (08:58)
[2019-06-04] MEDS: Vitamin E 400 UNITS CAP PO SCH (08:58)
[2019-06-04] MEDS: Potassium Chloride 20 MEQ TAB PO SCH ×2 (08:58→09:08)
[2019-06-04] MEDS: Gabapentin 100 MG CAP PO SCH ×2 (08:58→20:11)
[2019-06-04] MEDS: Multivitamin W/ Minerals 1 TAB PO SCH (08:58)
[2019-06-04] MEDS: Spironolactone 25 MG TAB PO SCH (08:59)
[2019-06-04 09:00] LABS: Potassium 2.7 mmol/L (3.5-5.1)
[2019-06-04] MEDS ORDERED: Potassium Chloride 20 MEQ in Premix Bag 1 BAG IVPB SCH ×3 (09:15→13:15)
[2019-06-04] MEDS ORDERED: Potassium Chloride 20 MEQ TAB PO SCH ×3 (09:15→17:30)
[2019-06-04] MEDS ORDERED: Potassium Chloride 40 MEQ in Sodium Chloride 0.9% 250 ML 250 ML IVPB SCH (11:00)
--- NOTE | 2019-06-04 12:26 | PDOC.EVN ---
Event Note - Event Note Event Note: Received tiger text from Gisela OSULLIVAN that patient had 15 second episode of torsades de points at 1109. Went back to previous rhythm. Ordered 2g IV of magnesium. Potassium and phosphorus were being replaced this AM. BMP, magnesium, phosphorus recheck ordered.
[2019-06-04 12:43] LABS: Anion Gap 13 mmol/L (10-20); BUN (Urea Nitrogen) 28 mg/dL (9.8-20.1); Calc. Creatinine Clearance 34 mL/min (70-130); Calcium 8.4 mg/dL (7.8-10.44); Carbon Dioxide 20 mmol/L (23-31); Chloride 110 mmol/L (98-107); Estimated GFR-MDRD 47; Glucose 188 mg/dL (83-110); Magnesium 2.4 mg/dL (1.6-2.6); Potassium 2.9 mmol/L (3.5-5.1); Sodium 140 mmol/L (136-145)
--- NOTE | 2019-06-04 12:49 | PRG ---
DATE OF SERVICE: Ms. Sousa has been having some diarrhea and she is C diff toxin positive. We are instituting therapy for this. She is also quite hypokalemic with potassium at 2.7 and this is being corrected. She had a run of torsades last night and was given a dose of intravenous magnesium. She will be following up with her EP physician after discharge. Job ID: [id number]
[2019-06-04] MEDS: Vancomycin HCl 25 MG/ML Oral PO SCH ×3 (13:49→23:35)
[2019-06-04] MEDS: Lactated Ringer's 1,000 ML IV SCH ×2 (13:58→22:23)
--- NOTE | 2019-06-04 14:39 | PRG ---
DATE OF SERVICE: 06/04/2019 SUBJECTIVE: Acute delirium today per her daughter. She has no chest discomfort, syncope, falls, or dyspnea. OBJECTIVE: GENERAL: Alert and oriented at this time. VITAL SIGNS: Temperature 98.7, pulse 76, respiratory rate 12, oxygen saturation 95% on 2 L nasal cannula, and blood pressure 111/53. HEENT: Ecchymosis of her left facial area. CARDIOVASCULAR: Regular rate and rhythm. No murmurs, gallops, or rubs. LUNGS: Clear to auscultation bilaterally. EXTREMITIES: No cyanosis, clubbing, or edema. LABORATORY DATA: Potassium 2.7 and magnesium 1.7. Microbiology positive for C. diff bacteria. Telemetry, 2 episodes of torsades de pointes. IMPRESSION AND PLAN: 1. Hypokalemia. 2. Hypomagnesemia. 3. Chronic atrial fibrillation. 4. Fall. 5. Chronic systolic heart failure. 6. LIBRARY CIRCULATION ASSISTANT-D with normal function. 7. Coronary artery disease. RECOMMENDATIONS: 1. Replace potassium and magnesium. 2. Continue observation on telemetry. 3. Will need left atrial appendage closure device in the future; however, given her C. diff colitis, we will defer at this time. 4. We will reprogram the defibrillator to ensure no pauses during pacing. Job ID: [id number]
[2019-06-04 16:53] LABS: Anion Gap 16 mmol/L (10-20); BUN (Urea Nitrogen) 30 mg/dL (9.8-20.1); Calc. Creatinine Clearance 29 mL/min (70-130); Calcium 8.5 mg/dL (7.8-10.44); Carbon Dioxide 17 mmol/L (23-31); Chloride 109 mmol/L (98-107); Estimated GFR-MDRD 39; Glucose 189 mg/dL (83-110); Potassium 3.8 mmol/L (3.5-5.1); Sodium 138 mmol/L (136-145)
[2019-06-04] MEDS: Enoxaparin Sodium 30 MG/0.3 ML SYRINGE SC SCH (20:11)
[2019-06-04] MEDS ORDERED: Cefdinir 300 MG CAP PO SCH (21:00)
[2019-06-04 21:01] LABS: Anion Gap 16 mmol/L (10-20); BUN (Urea Nitrogen) 36 mg/dL (9.8-20.1); Calc. Creatinine Clearance 23 mL/min (70-130); Calcium 9.3 mg/dL (7.8-10.44); Carbon Dioxide 18 mmol/L (23-31); Chloride 109 mmol/L (98-107); Estimated GFR-MDRD 30; Glucose 182 mg/dL (83-110); Sodium 139 mmol/L (136-145)
[2019-06-05] MEDS ORDERED: Metoprolol Tartrate 5 MG/5 ML VIAL IVP PRN (04:23)
[2019-06-05] MEDS ORDERED: Digoxin 0.5 MG/2 ML AMP SLOW IVP SCH (04:30)
[2019-06-05 04:36] LABS: Base Excess (BEa) -9.6 mEq/L (-2.0 to +3.0); CO2 Tension 44.7 mmHg (35.0-45.0); Calcium, Ionized 1.22 mmol/L (1.12-1.30); Carboxyhemoglobin (COHb) 1.2 gm% (0.0-3.0); Hemoglobin (Hb) 17.1 g/dL (12.0-16.0); O2 Tension (PaO2) 127.3 mmHg (> 60.0); Potassium - ABG Lab 4.97 mmol/L (3.70-5.30)
[2019-06-05 04:38] LABS: Puncture Site RBR; pH, Arterial 7.22 (7.35-7.45)
[2019-06-05 04:39] LABS: ALV-art Gradient 173.325 (0-20)
[2019-06-05] MEDS ORDERED: Pantoprazole 40 MG VIAL IVP SCH (04:45)
[2019-06-05] MEDS ORDERED: Sodium Chloride 0.9% (PF) 10 ML VIAL FS PRN (04:45)
[2019-06-05 04:49] LABS: Band 36 % (5-11); Hemoglobin 17.1 g/dL (12.0-16.0); Lymphocytes 3 % (21-51); MDiff Complete? YES; Mean Corpuscular HGB CONC 31.4 g/dL (32.0-36.0); Mean Corpuscular Hemoglobin 29.6 pg (27.0-31.0); Mean Corpuscular Volume 94.3 fL (78.0-98.0); Mean Platelet Volume 8.6 fL (7.4-10.4); Metamyelocyte 2 % (0-0); Monocytes 6 % (0-10); Neutrophil 53 % (42-75); Platelet Count 307 thou/uL (130-400); RBC Distribution Width 13.6 % (11.5-14.5); Red Blood Cell (RBC) Count 5.79 mill/uL (4.20-5.40); White Blood Cell (WBC) Count 37.1 thou/uL (4.8-10.8)
--- NOTE | 2019-06-05 05:37 | PDOC.FM ---
- Subjective Subjective: Pt complains of some abdominal pain. She has some shortness of breath even on BiPap. Two daughters and grand daughter at bedside. - Objective MAR Reviewed: Yes Vital Signs & Weight: Vital Signs (12 hours) Temp Pulse Pulse Pulse Resp Resp Resp 06/05/19 05:07 111 H 06/05/19 03:57 93 120 H 30 H 30 H 06/04/19 19:15 98.3 F 100 22 H BP BP BP Pulse Ox 06/05/19 05:07 06/05/19 03:57 131/61 120/75 06/04/19 19:15 113/59 L 96 Weight Admit Weight 56.835 kg Weight 58.241 kg Most Recent Monitor Data Heart Rate from ECG 113 NIBP 81/53 NIBP BP-Mean 62 Respiration from ECG 30 SpO2 95 I&O: 06/03/19 06/04/19 06/05/19 06:59 06:59 06:59 Intake Total 3000 950 2200 Output Total 800 Balance 2200 950 2200 Result Diagrams: 06/05/19 04:10 06/05/19 07:12 Phys Exam - Physical Examination Mild respiratory distress Neck: no JVD Cardiovascular: RRR, no significant murmur Distended with tenderness to palpation, tempanic to percussion in all quads Musculoskeletal: no edema, pulses present Neurological: moves all 4 limbs Psychiatric: normal affect Skin: cap refill <2 seconds Dx/Plan (1) C. difficile colitis Code(s): A04.72 - ENTEROCOLITIS D/T CLOSTRIDIUM DIFFICILE, NOT SPCF RECUR Status: Acute (2) Acute respiratory failure with hypoxia Code(s): J96.01 - ACUTE RESPIRATORY FAILURE WITH HYPOXIA Status: Acute (3) Syncope Code(s): R55 - SYNCOPE AND COLLAPSE Status: Acute Qualifiers: Syncope type: unspecified Qualified Code(s): R55 - Syncope and collapse (4) UTI (urinary tract infection) Status: Acute Qualifiers: Urinary tract infection type: acute cystitis Hematuria presence: without hematuria Qualified Code(s): N30.00 - Acute cystitis without hematuria (5) HFrEF (heart failure with reduced ejection fraction) Code(s): I50.20 - UNSPECIFIED SYSTOLIC (CONGESTIVE) HEART FAILURE Status: Chronic Qualifiers: Heart failure chronicity: chronic Qualified Code(s): I50.22 - Chronic systolic (congestive) heart failure (6) Hypertension Code(s): I10 - ESSENTIAL (PRIMARY) HYPERTENSION Status: Chronic Qualifiers: Hypertension type: essential hypertension Qualified Code(s): I10 - Essential (primary) hypertension - Plan Plan: This is an 83 yo female with a pmh of HTN, HLD, Afib, HFrEF, AAA with bypass, depression Acute hypoxic respiratory failure -Likely secondary abdominal distension, metabolic acidosis -Currently on bipap, will continue respiratory support, ultimate care depends on family's wishes Sepsis 2/2 C. diff colitis with ileus -Currently on PO vancomycin, although pt had NG tube on intermitant suction -IV metronidazole -Bolus LR currently -Consider pressors if BP drops -Dr. Cervantes has been consulted and discussed options of surgery or comfort measures at this time. Family is present and discussing options -Pending lactic acid and CMP -Pt made DNAR this morning, family will continue discussing options Acidosis -Likely 2/2 above -Fluid recussiation Orthostatic hypotension with syncope and fall -Original cc -Pt had run of torsades de pointes -Echo Shows EF 40-45% Klebsiella pneumoniae UTI -Continue rocephin VIRIDIANA, resolved HTN -Hold meds HFrEF -AICD in place, shut off this AM by company A-fib -AICD -Holding Eliquis with recent fall Lung nodule -Outpt pulmonology consult if appropriate AAA -CT shows AAA with 3.1cm dilation -Previous surgery for aorto-bifemoral bypase HLD -Hold meds Depression -Hold home meds Addendum - Attending - Attending Attestation Date/Time: 06/05/19 1027 I personally evaluated the patient and discussed the management with Dr. Kumar. I agree with the History, Examination, Assessment and Plan documented above with any addition or exceptions noted below. 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 She is currently on Bipap. CT scan performed and awaiting further surgical recs. Needs aggressive fluids due to severe hemoconcentration. Discussion with family about goals of care now that DNAR. Pulm on board. Next steps pending surgical recs.
[2019-06-05] MEDS ORDERED: Lorazepam 2 MG/ML VIAL SLOW IVP PRN ×2 (05:40→21:04)
[2019-06-05] MEDS ORDERED: cefTRIAXone\\ROCEPHIN 1 GM in Sodium Chloride 0.9% 100 ML IVPB SCH (06:00)
[2019-06-05] MEDS ORDERED: Lactated Ringer's 250 ML IV SCH (06:00)
--- NOTE | 2019-06-05 06:15 | PDOC.EVN ---
Event Note - Event Note Event Note: [facility] was notified of a Code Green for Mrs. Sousa at approximately 0400 on . Upon arrival, Mrs. Gilberts O2Sats were dropping to the low 70s on 2L Nasal Canula. Her inspiratory effort was poor and she seemed mildly confused and difficult to converse with. Her Nasal Canula flow rate was increased to 5L, with no improvement, and then switched to a Non-Rebreather Make, also with no improvement. The decision was made to place Mrs. Sousa on BiPap and transfer her to the ICU for further evaluation. At this time it was found that her abdomen was severly distended. At this time we got a CXR and KUB. CXR showed decreased lung space but no other acute findings. The KUB showed concerns for ileus vs obstruction vs Toxic Megacolon. At this time ABG was done showing ph of 7.22 and pco2 of 44. At this time we were notified her Hgb to be 17 and WBC to be 37.2. At this time all other labs was pending. We then consulted Dr. Lin (pulm/crti), and Dr. Cervantes (General Surgery) due to concern for Toxic Megacolon. At their recommendations they stated she needed to be intubated and needed a CT of her abdomen. It should be noted prognosis was poor. Her mental status continued to declined and her daughters were brought into the room to help determine an appropriate course of action, specifically with regard to the need to intubate or proceed with palliative measures and a removal of her Full Code status. Mrs. Sousa's daughters determined that it was appropriate to remove her Full Code Status and proceed with palliative measures rather than attempt to undergo intubation and possible surgery. A 1L bolus of LR was administered to help maintain adequate MAP, and additional comfort measure were implemented to ensure adequate pain control. Pt was kept on BIPAP for now. Also pt has AICD and pacemaker in place. After talking with the family we have ordered to have the device shut off. We are awaiting palliative care consult. Attending Note: I was present for the above documented event. Agree with documentation. will continue Bipap for now. NG placed. unstable foe CT at this time. Ab xray performed. Gen Surg contacted for survere c diff with ileus vs megacolon. Monitor closely. Ford
[2019-06-05 06:23] LABS: Digoxin 0.72 ng/mL (0.8-2.0)
[2019-06-05] MEDS ORDERED: Dextrose 5% in Water 1,000 ML IV SCH (06:30)
[2019-06-05] MEDS: Lactated Ringer's 1,000 ML IV SCH ×3 (06:30→09:41)
--- NOTE | 2019-06-05 07:35 | CON ---
DATE OF CONSULTATION: 06/05/2019 CONSULTING PHYSICIAN: Nayeli Walker MD REASON FOR CONSULTATION: Acute abdomen, suspected toxic megacolon. HISTORY OF PRESENT ILLNESS: The patient is an 83-year-old white female. She was hospitalized four days ago after a fall at home. She was felt to potentially have problems related to urinary tract infection and was admitted to the hospital and placed on IV antibiotics. She has been evaluated over the past few days by Cardiology. Early this morning, she developed hypoxia that was resistant to oxygen administration. She was noted to have developed abdominal distention. X-rays were obtained revealing findings potentially consistent with a megacolon. She was incidentally diagnosed with Clostridium difficile diarrhea yesterday morning. Her urinary tract infection was subsequent to Klebsiella. She was transferred to the Intensive Care Unit. The plan earlier this morning was to intubate her and obtain an urgent CT scan of abdomen and pelvis. Upon my arrival, this has not been performed as the patient's family had arrived and felt that she should be a "do not resuscitate" status and felt that she should not have surgery. The patient is currently on BiPAP. She is arousable and alert, and she tries to communicate, but it is hard to hear her through the mask. She does respond appropriately to pain. Metabolic panel that was ordered for this morning has not yet been done. Last metabolic panel was 8 o'clock last night. It is noted that her renal function has deteriorated with her creatinine dropping from 1.1 to 1.6. She was apparently not administered extra IV fluids overnight. Her hemoglobin on the 15 was 13.3; this morning, it is 17.1, that is likely consistent with significant dehydration/hypovolemia. It is also noted that she has a 36% bandemia. Her white blood cell count is 37.1 this morning. Her ABG from this morning shows significant acidosis with pH of 7.22 in spite of a normal pCO2 of 44.7. PAST MEDICAL HISTORY: 1. Chronic systolic heart failure. 2. Peripheral vascular disease with recent percutaneous intervention this year. 3. Coronary artery disease. 4. Chronic atrial fibrillation. 5. Hypertension. 6. Dyslipidemia. 7. History of uterine carcinoma. 8. History of abdominal aortic aneurysm. PAST SURGICAL HISTORY: 1. Open cholecystectomy. 2. Open abdominal aortic aneurysm. 3. Hysterectomy. 4. Hip surgery. 5. Back surgery. ALLERGIES: PENICILLIN. OUTPATIENT MEDICATIONS: Include, 1. Lipitor. 2. Escitalopram. 3. Plavix. 4. Digoxin. 5. Eliquis. 6. Lasix. 7. Losartan. 8. Metoprolol. 9. Spironolactone. 10. TriCor. PERSONAL AND SOCIAL HISTORY: She is recently . Her in January of this year. She has several children and two of her daughters are present at bedside. She does not smoke. REVIEW OF SYSTEMS: Otherwise unremarkable. PHYSICAL EXAMINATION: VITAL SIGNS: She has been afebrile during her hospitalization. Her heart rate was stable, less than 100 up until early this morning when she became tachycardic with a heart rate of 111. She remains tachycardic currently with a heart rate of between 108 and 130. She has been hypotensive this morning with blood pressure varying between 80/50 and 110/70. Her oxygen saturation is currently improved in the mid 90s on BiPAP. LUNGS: Appear to be clear to auscultation. ABDOMEN: Distended, protuberant and diffusely tender. I am not able to appreciate bowel sounds currently. RECTAL EXAMINATION: She has some degree of anal sphincter stenosis and digital exam seems to be somewhat uncomfortable, but her rectal vault appears to be empty. There is no evidence of stool or blood within her rectal vault currently. EXTREMITIES: Unremarkable. LABORATORY DATA: As mentioned, some of her labs are pending for this morning. Her metabolic panel is pending as well as a lactate level. ASSESSMENT AND PLAN: The patient who appears to be decompensated secondary to potentially-complicated colitis related to Clostridium difficile colitis. The KUB, this is based upon is difficult to interpret. I recommend a CT scan of her abdomen to allow me to better evaluate her abdominal contents. This should be done without contrast given her progressive renal function decline yesterday. She has been given a liter bolus of LR currently. Dr. Karl Lin, has seen her from a Critical Care standpoint. I spoke with the family at length at bedside in the Intensive Care Unit. I explained that if she does have what appears that she has (megacolon related to worsening/fulminant Clostridium difficile colitis), then her decline currently is ominous and the only intervention is likely to make a difference is an urgent exploratory laparotomy with subtotal colectomy and ileostomy creation. The family is uncertain, if they want to proceed with intubation of the patient much less surgery. Dr. Lin feel she is stable for CT scan with her on BiPAP and this will be obtained and her remaining laboratory studies will be evaluated. The patient's family will discuss among themselves and apparently another brother is due to arrive. If they decide to proceed with intervention, depending upon findings of CT scan and laboratory studies, I would likely recommend exploratory laparotomy that could be performed urgently today. If they decide against intervention, then supportive medical management is the best we can do and she would still likely succumb to her disease. Job ID: [id number]
--- NOTE | 2019-06-05 08:08 | CON ---
DATE OF CONSULTATION: 06/05/2019 35 minutes of critical care time. REASON FOR CONSULTATION: ICU admission for respiratory failure related to acute metabolic acidosis from C difficile colitis. HISTORY OF PRESENT ILLNESS: This patient was admitted to the [facility] on 06/01/2019. She is 83 years old. She had a syncopal episode prior to admission where she had fallen and hit her head. She was diagnosed with a UTI and started on antibiotics. In following the patient's clinical course, the patient began decompensating yesterday demonstrating mental status changes. She was transferred to the ICU this morning for progressive respiratory distress. I have been told she has had a couple episodes of torsade during this hospitalization. Between the time I was called and the time I arrived, the family has made the patient a DNR and refused intubation. PAST MEDICAL HISTORY: 1. Uterine cancer. 2. Congestive heart failure. 3. Atrial fibrillation. 4. Hypertension. 5. Hyperlipidemia. 6. Abdominal aortic aneurysm. 7. Arthritis. PAST SURGICAL HISTORY: 1. AICD placement. 2. Coronary stent placement. 3. Right hip fracture repair. 4. Bilateral cataract surgery. 5. Cholecystectomy. 6. Aortofemoral bypass. FAMILY MEDICAL HISTORY: Remarkable for breast cancer, lung cancer, and brain cancer. SOCIAL HISTORY: Former smoker, quit 10 years ago. Does not consume alcohol. REVIEW OF SYSTEMS: Impossible to obtain accurately as the patient is on BiPAP. ALLERGIES: PENICILLIN. PHYSICAL EXAMINATION: VITAL SIGNS: Heart rate 92, blood pressure 83/50, O2 saturation 96%, and respiratory rate 27. GENERAL: The patient is an elderly female, who looks acutely ill. HEENT: She has a left periorbital bruise. Oropharynx is dry. NECK: No adenopathy or JVD. LUNGS: Tachypneic with clear breath sounds. CARDIOVASCULAR: S1, S2. Tachycardic. No murmur. ABDOMEN: Grossly distended and tympanic, tender to mild palpation. EXTREMITIES: Muscle wasting. No cyanosis or edema. LABORATORY DATA: White blood cell count 37.1, hematocrit 54.6, and platelet count 307. PH of 7.22, pCO2 of 45, pO2 of 127. Sodium 139, potassium , chloride 109, CO2 of 18, BUN 36, creatinine 1.6, glucose 180 (the chemistry was done on 06/04). Chemistry from today was apparently drawn, but the result is pending. Her KUB shows dilated colon. Chest x-ray demonstrates AICD with wires in a biventricular position, also has atrial leads, clear lung ang; for the most part, no evidence of effusion. ASSESSMENT: 1. Clostridium difficile colitis. 2. Acute respiratory failure secondary to profound metabolic acidosis. 3. Metabolic acidosis. 4. Hemoconcentrated. PLAN: This patient is likely to succumb if the current situation is not addressed with more aggressive fluid resuscitation and possible surgical intervention. We will discuss. Job ID: [id number]
--- NOTE | 2019-06-05 08:09 | RAD ---
PORTABLE SUPINE ABDOMEN: Date: 06/05/19 INDICATION: Abdominal distention. Positive C.Diff. FINDINGS: Lower chest and upper abdomen imaged. There is gaseous distention of the stomach. There is gaseous di stention of visualized small bowel. There is gas in the visualized large bowel. A rounded calcification overlying the right upper quadrant could potentially represent a gallstone. IMPRESSION: Incomplete evaluation of the abdomen on this 1 view portable supine projection. Gaseous distention of small bowel appears nonspecific. Question gallstone. POS: OFF
--- NOTE | 2019-06-05 08:10 | RAD ---
PORTABLE CHEST: HISTORY: Decreased O2 sat. Dyspnea. CCU followup. COMPARISON: 05/24/2016. There is left basilar atelectasis and/or infiltrate obscuring the CP angle. Mild cardiomegaly is sta ble. Vascular and interstitial markings are prominent but stable from prior exam. AICD leads again noted. IMPRESSION: Question a new infiltrate or atelectasis to the left lung base. Chronic-appearing lung findings othe rwise appear stable. POS: OFF
[2019-06-05 08:14] LABS: ALT (SGPT) 15 U/L (8-55); AST (SGOT) 25 U/L (5-34); Albumin 2.5 g/dL (3.4-4.8); Alkaline Phosphatase 51 U/L (40-110); Anion Gap 16 mmol/L (10-20); BUN (Urea Nitrogen) 45 mg/dL (9.8-20.1); Bilirubin, Total 0.4 mg/dL (0.2-1.2); Calc. Creatinine Clearance 14 mL/min (70-130); Calcium 8.4 mg/dL (7.8-10.44); Carbon Dioxide 15 mmol/L (23-31); Chloride 111 mmol/L (98-107); Estimated GFR-MDRD 17; Globulin 2.7 g/dL (2.4-3.5); Glucose 203 mg/dL (83-110); Potassium 4.8 mmol/L (3.5-5.1); Protein, Total 5.2 g/dL (6.0-8.3); Sodium 137 mmol/L (136-145)
--- NOTE | 2019-06-05 08:16 | CT ---
CT Abdomen Pelvis WO Con: 06/05/2019 6:51 AM HISTORY: GI bleed and abdominal distention COMPARISON: 06/01/2019 TECHNIQUE: Multiple contiguous axial images were obtained and a CT of the abdomen and pelvis without IV contrast . Coronal and sagittal reformats were performed. FINDINGS: This examination is limited for the evaluation of solid organs and vascular structures due to the lac k of intravenous contrast. Lower Chest: Atelectasis in the lung bases. Abdomen: Liver: within normal limits. Bile Ducts: Normal caliber. Gallbladder: Removed Pancreas: within normal limits. Spleen: within normal limits. Adrenals: within normal limits. Kidneys: Multiple simple cysts measuring up to 4.2 cm in size. There is a small hyperdense cyst in th e lower pole the left kidney. Pelvis: Reproductive Organs: Atrophic uterus. Ureters: within normal limits. Bladder: within normal limits. Bowel: The colon is mildly distended with fluid and air. The small bowel is normal in caliber. A smal l bowel feces sign is seen within one loop of more distal small bowel. This loop is normal in caliber. An NG tube is seen in the stomach. Mesenteric Lymph Nodes: No enlarged mesenteric lymph nodes. Peritoneum: Mild diffuse ascites. Vessels: Atherosclerotic calcifications in the aorta. Severe atherosclerotic disease is seen in the n ative common iliac arteries. The patient has had an aortofemoral bypass. Retroperitoneum: within normal limits. Abdominal Wall: within normal limits. Bones: Degenerative changes in the spine. IMPRESSION: 1. No evidence of bowel obstruction 2. Mild ascites 3. Bilateral renal cysts
[2019-06-05] MEDS: Vancomycin HCl 25 MG/ML Oral PO SCH ×2 (09:40→11:27)
[2019-06-05] MEDS: Potassium Chloride 20 MEQ TAB PO SCH (09:41)
--- NOTE | 2019-06-05 09:59 | PDOC.PALCO ---
Palliative Care Consult - Consult Details Requesting Physician: Dr Walker Reason for Consult: goals of care, advance directives assistance, complex decision-making Family Members Present: Daughter Donna and grandreta - Pertinent HPI Recent admission to the hospital s/p fall at home. Admitted to the hospital for further evaluation of syncopal episode, heart failure, UTI. 06/05 patient had episode of respiratory distress and required transfer to CCU, on BiPap and awaiting result of CT and discussion with Dr Galeana to determine as to proceed with surgery for management of septic zaid colon. - Social History Smoking Status: Former smoker Smoking: quit greater than 1 year Alcohol Use: none Drug Use History: none Living Situation: independent, other (Family member lives with patient, she lost her in January 2019) - Medications MAR Reviewed: Yes - Allergies Allergies/Adverse Reactions: Allergies Allergy/AdvReac Type Severity Reaction Status Date / Time Penicillins Allergy Severe Anaphylaxis Verified 06/02/19 01:25 - Subjective on BiPap, lethargic ROS: unable to determine - Objective Vital Signs: Vital Signs - Most Recent Temp Pulse Resp BP Pulse Ox 98.3 F 72 30 H 131/61 91 L 06/04/19 19:15 06/05/19 09:27 06/05/19 03:57 06/05/19 03:57 06/05/19 04:16 Palliative Performance Scale: 20 - Physical Exam Constitutional: moderate distress HEENT: moist MMs, sclera anicteric, EOMI Deviation from normal: labored respirations Cardiovascular: irregular Deviation from normal: Distended Deviation from normal: Oriented to self - Problem List (1) Palliative care encounter Code(s): Z51.5 - ENCOUNTER FOR PALLIATIVE CARE Current Visit: Yes Status: Acute (2) Acute respiratory failure with hypoxia Code(s): J96.01 - ACUTE RESPIRATORY FAILURE WITH HYPOXIA Current Visit: Yes Status: Acute (3) C. difficile colitis Code(s): A04.72 - ENTEROCOLITIS D/T CLOSTRIDIUM DIFFICILE, NOT SPCF RECUR Current Visit: Yes Status: Acute (4) HFrEF (heart failure with reduced ejection fraction) Code(s): I50.20 - UNSPECIFIED SYSTOLIC (CONGESTIVE) HEART FAILURE Current Visit: Yes Status: Chronic Qualifiers: Heart failure chronicity: chronic Qualified Code(s): I50.22 - Chronic systolic (congestive) heart failure - Plan/Recommendations Plan: Discussion family in relation to current health situation. Wishes to have patient remain a DNAR, will wait until Dr Galeana determines if patient able to proceed with surgery, then family believes that it is in the best interest of the patient to proceed with surgery. Palliative Care will continue to support family and patient as they navigate disease trajectory and complex decisions. [50] minutes spent on this encounter with >50% of the time in counseling and coordination of care. Thank you for this very appropriate consult.
[2019-06-05] MEDS: metroNIDAZOLE 500 MG in Premix Bag 1 BAG IVPB SCH ×3 (11:34→23:01)
[2019-06-05] MEDS: Sodium Bicarbonate 70 MEQ in Dextrose 5% in Water 1,000 ML IV SCH (11:34)
[2019-06-05] MEDS ORDERED: Vecuronium 10 MG VIAL ONE (11:50)
[2019-06-05] MEDS ORDERED: Ondansetron PF 4 MG/2 ML Vial ONE (11:50)
[2019-06-05] MEDS ORDERED: Dexamethasone 20 MG/5 ML VIAL ONE (11:50)
[2019-06-05] MEDS ORDERED: PROPOFOL 200 MG/20 ML VIAL ONE (11:50)
[2019-06-05] MEDS ORDERED: diphenhydrAMINE 50 MG/ML VIAL ONE (11:50)
[2019-06-05] MEDS ORDERED: Calcium Chloride 1 GM/10 ML Abboject SYRINGE ONE (11:50)
[2019-06-05] MEDS ORDERED: Sodium Bicarb 50 MEQ/50 ML VIAL ONE ×2 (11:50→18:02)
[2019-06-05] MEDS ORDERED: EPINEPHrine 1 MG/10 ML Abboject SYRINGE ONE (11:50)
[2019-06-05] MEDS ORDERED: Rocuronium Bromide 10 MG/ML (10ML VIAL) ONE (11:50)
[2019-06-05] MEDS ORDERED: Succinylcholine Chloride 20 MG/ML 10 ml SYRINGE FS ONE (11:50)
[2019-06-05 12:45] LABS: Albumin 3.2 g/dL (3.4-4.8)
[2019-06-05 12:48] LABS: Protein, Total 6.4 g/dL (6.0-8.3)
[2019-06-05 12:49] LABS: Bilirubin, Total 0.5 mg/dL (0.2-1.2)
[2019-06-05 12:50] LABS: Alkaline Phosphatase 60 U/L (40-110)
[2019-06-05 12:53] LABS: ALT (SGPT) 16 U/L (8-55); AST (SGOT) 23 U/L (5-34)
[2019-06-05 13:23] LABS: Hemoglobin 15.7 g/dL (12.0-16.0); Mean Corpuscular HGB CONC 31.1 g/dL (32.0-36.0); Mean Corpuscular Hemoglobin 29.7 pg (27.0-31.0); Mean Corpuscular Volume 95.4 fL (78.0-98.0); Mean Platelet Volume 8.7 fL (7.4-10.4); Platelet Count 257 thou/uL (130-400); RBC Distribution Width 13.7 % (11.5-14.5); White Blood Cell (WBC) Count 36.6 thou/uL (4.8-10.8)
[2019-06-05 13:40] LABS: Lactic Acid 3.8 mmol/L (0.5-2.2)
[2019-06-05 13:44] LABS: ALT (SGPT) 18 U/L (8-55); AST (SGOT) 29 U/L (5-34); Albumin 2.4 g/dL (3.4-4.8); Alkaline Phosphatase 55 U/L (40-110); Anion Gap 13 mmol/L (10-20); BUN (Urea Nitrogen) 48 mg/dL (9.8-20.1); Band 34 % (5-11); Bilirubin, Total 0.4 mg/dL (0.2-1.2); Calc. Creatinine Clearance 14 mL/min (70-130); Calcium 8.2 mg/dL (7.8-10.44); Carbon Dioxide 20 mmol/L (23-31); Chloride 107 mmol/L (98-107); Eosinophils 1 % (0-10); Estimated GFR-MDRD 16; Globulin 2.8 g/dL (2.4-3.5); Glucose 228 mg/dL (83-110); Lymphocytes 3 % (21-51); MDiff Complete? YES; Metamyelocyte 5 % (0-0); Monocytes 7 % (0-10); Myelocyte 1 % (0-0); Neutrophil 49 % (42-75); Platelet Morphology Comment Appears Adequate; Potassium 4.7 mmol/L (3.5-5.1); Protein, Total 5.2 g/dL (6.0-8.3); RBC Morphology Normal; Sodium 135 mmol/L (136-145); Toxic Granulation SLIGHT; Vacuoles SLIGHT
[2019-06-05] MEDS: Norepinephrine 8 MG in Dextrose 5% in Water 242 ML IVPB PRN (15:32)
[2019-06-05] MEDS ORDERED: Fentanyl 100 MCG/2 ML VIAL ONE (16:01)
[2019-06-05] MEDS ORDERED: Levofloxacin 500 mg/D5W 100 ml Premix Bag ONE (17:02)
[2019-06-05] MEDS ORDERED: metroNIDAZOLE 500 MG/100 ML BAG ONE (17:02)
[2019-06-05] MEDS ORDERED: Ketamine 50 MG/ML (10ML VIAL) ONE (17:20)
[2019-06-05] MEDS ORDERED: Albumin 5% 500 ML ONE ×2 (17:24→18:51)
[2019-06-05] MEDS ORDERED: SODIUM CHLORIDE 0.9% RC SCH (18:00)
[2019-06-05] MEDS ORDERED: VANCOMYCIN HCL RC SCH (18:00)
[2019-06-05] MEDS ORDERED: Midazolam HCl 2 mg/2 ml Vial ONE (18:49)
[2019-06-05] MEDS ORDERED: Albumin 5% 0 ML ONE (18:50)
[2019-06-05] MEDS ORDERED: Norepinephrine 4 MG/4 ML VIAL ONE ×2 (19:01)
[2019-06-05] MEDS ORDERED: Ventilator Sedation Protocol 1 EACH FS ONE (20:55)
[2019-06-05 20:59] LABS: Actual Bicarbonate (HCO3a) 16.4 mEq/L (22-28); CO2 Tension 37.8 mmHg (35.0-45.0); Calcium, Ionized 1.11 mmol/L (1.12-1.30); Carboxyhemoglobin (COHb) 1.2 gm% (0.0-3.0); Hemoglobin (Hb) 13.9 g/dL (12.0-16.0); O2 Tension (PaO2) 108.8 mmHg (> 60.0); Potassium - ABG Lab 4.18 mmol/L (3.70-5.30)
[2019-06-05] MEDS ORDERED: Propofol BOLUS 1,000 MG/100 ML VIAL IV PRN (21:04)
[2019-06-05] MEDS ORDERED: fentaNYL Citrate/PF 2,000 MCG in Sodium Chloride 0.9% 60 ML IV SCH (21:04)
[2019-06-05] MEDS ORDERED: Propofol 1,000 MG/100 ML VIAL IV PRN (21:04)
[2019-06-05] MEDS ORDERED: Fentanyl BOLUS 250 ML IVPB PRN (21:04)
[2019-06-05] MEDS ORDERED: DISCONTINUE PREVIOUS NARCOTIC PAIN MEDICATIONS AND BENZODIAZEPINES FS SCH (21:04)
[2019-06-05 21:07] LABS: Puncture Site ALINE; pH, Arterial 7.25 (7.35-7.45)
--- NOTE | 2019-06-05 21:08 | RAD ---
Exam: Chest one view HISTORY:Intubated patient Comparison: Earlier same day FINDINGS: Lungs: Bilateral interstitial and alveolar opacities are similar Cardiac silhouette:Remains enlarged Pulmonary vessels: Vascular congestion is similar Pleural Spaces: Hazy densities at the lower chest may relate to small bilateral pleural effusions Pneumothorax: None. Enteric catheter has been placed with tip below [id number]. Endotracheal tube is present with tip above the tanika Osseous abnormalities: None of acuity. IMPRESSION: Interval placement of endotracheal and enteric tubes as above. Bilateral pulmonary parenchymal and pleural densities. Recommend continued follow-up.
[2019-06-05 21:45] LABS: Hemoglobin 13.8 g/dL (12.0-16.0); Mean Corpuscular HGB CONC 31.5 g/dL (32.0-36.0); Mean Corpuscular Hemoglobin 29.7 pg (27.0-31.0); Mean Corpuscular Volume 94.3 fL (78.0-98.0); Mean Platelet Volume 9.2 fL (7.4-10.4); Platelet Count 172 thou/uL (130-400); RBC Distribution Width 13.5 % (11.5-14.5); Red Blood Cell (RBC) Count 4.64 mill/uL (4.20-5.40)
[2019-06-05 21:59] LABS: Band 25 % (5-11); Lymphocytes 5 % (21-51); MDiff Complete? YES; Metamyelocyte 6 % (0-0); Monocytes 6 % (0-10); Neutrophil 58 % (42-75); Platelet Morphology Comment Appears Adequate
[2019-06-05] MEDS: MEROPENEM 1 GM/50 ML 1 GM in Premix Bag 1 BAG IVPB SCH (22:02)
[2019-06-05] MEDS: Enoxaparin Sodium 30 MG/0.3 ML SYRINGE SC SCH (22:03)
[2019-06-05 22:10] LABS: Anion Gap 13 mmol/L (10-20); BUN (Urea Nitrogen) 46 mg/dL (9.8-20.1); Calc. Creatinine Clearance 16 mL/min (70-130); Calcium 7.8 mg/dL (7.8-10.44); Carbon Dioxide 20 mmol/L (23-31); Chloride 110 mmol/L (98-107); Estimated GFR-MDRD 20; Glucose 265 mg/dL (83-110); Potassium 4.3 mmol/L (3.5-5.1); Sodium 139 mmol/L (136-145)
[2019-06-06] MEDS: Norepinephrine 8 MG in Dextrose 5% in Water 242 ML IVPB PRN ×5 (01:41→20:40)
[2019-06-06] MEDS: Sodium Bicarbonate 70 MEQ in Dextrose 5% in Water 1,000 ML IV SCH (01:41)
[2019-06-06 04:59] LABS: Hemoglobin 14.2 g/dL (12.0-16.0); Mean Corpuscular HGB CONC 30.9 g/dL (32.0-36.0); Mean Corpuscular Hemoglobin 29.1 pg (27.0-31.0); Mean Platelet Volume 10.1 fL (7.4-10.4); Platelet Count 144 thou/uL (130-400); RBC Distribution Width 13.7 % (11.5-14.5); Red Blood Cell (RBC) Count 4.88 mill/uL (4.20-5.40); White Blood Cell (WBC) Count 41.6 thou/uL (4.8-10.8)
[2019-06-06 05:11] LABS: Anion Gap 11 mmol/L (10-20); BUN (Urea Nitrogen) 47 mg/dL (9.8-20.1); Calc. Creatinine Clearance 19 mL/min (70-130); Calcium 7.8 mg/dL (7.8-10.44); Carbon Dioxide 22 mmol/L (23-31); Chloride 108 mmol/L (98-107); Estimated GFR-MDRD 21; Glucose 285 mg/dL (83-110); Magnesium 2.5 mg/dL (1.6-2.6); Potassium 4.3 mmol/L (3.5-5.1); Sodium 137 mmol/L (136-145)
[2019-06-06] MEDS ORDERED: Dextrose 50% Abboject 50 ML SYRINGE SLOW IVP PRN (05:41)
[2019-06-06] MEDS ORDERED: Dextrose 5% in Water 1,000 ML IV PRN (05:41)
[2019-06-06] MEDS ORDERED: HumaLOG 300 UNITS/3 ML VIAL SC PRN (05:41)
[2019-06-06 05:45] LABS: Band 30 % (5-11); Lymphocytes 5 % (21-51); MDiff Complete? YES; Metamyelocyte 8 % (0-0); Monocytes 8 % (0-10); Myelocyte 1 % (0-0); Neutrophil 48 % (42-75); Platelet Morphology Comment Appears Adequate
--- NOTE | 2019-06-06 05:48 | PDOC.FM ---
- Subjective Subjective: No acute events overnight. She has been off sedation but on pressure support. Per nursing, she tolerated the surgery. - Objective Vital Signs & Weight: Vital Signs (12 hours) Temp Pulse Resp BP Pulse Ox 06/06/19 04:04 89 06/06/19 04:00 16 06/06/19 02:10 102 H 121/58 L 06/06/19 02:00 16 06/06/19 00:00 97.1 F L 16 06/05/19 22:00 16 06/05/19 21:05 70 06/05/19 21:00 96.3 F L 06/05/19 20:15 95.0 F L 16 97 Weight Admit Weight 56.835 kg Weight 64.5 kg Most Recent Monitor Data Heart Rate from ECG 78 NIBP 111/55 NIBP BP-Mean 73 Respiration from ECG 18 SpO2 96 I&O: 06/04/19 06/05/19 06/06/19 06:59 06:59 06:59 Intake Total 950 2200 0 Output Total 1100 438 Balance 950 1100 -438 Result Diagrams: 06/06/19 04:29 06/06/19 04:29 Phys Exam - Physical Examination Intubated HEENT: PERRLA Dry mm Neck: no JVD Respiratory: no wheezing, clear to auscultation bilateral Cardiovascular: RRR, no significant murmur Gastrointestinal: soft, non-tender, no distention, positive bowel sounds left AWILDA drain in place, right ileostomy in place, incision dressing dry Musculoskeletal: no edema, pulses present Skin: cap refill <2 seconds Dx/Plan (1) C. difficile colitis Code(s): A04.72 - ENTEROCOLITIS D/T CLOSTRIDIUM DIFFICILE, NOT SPCF RECUR Status: Acute (2) Acute respiratory failure with hypoxia Code(s): J96.01 - ACUTE RESPIRATORY FAILURE WITH HYPOXIA Status: Acute (3) Syncope Code(s): R55 - SYNCOPE AND COLLAPSE Status: Acute Qualifiers: Syncope type: unspecified Qualified Code(s): R55 - Syncope and collapse (4) UTI (urinary tract infection) Status: Acute Qualifiers: Urinary tract infection type: acute cystitis Hematuria presence: without hematuria Qualified Code(s): N30.00 - Acute cystitis without hematuria (5) HFrEF (heart failure with reduced ejection fraction) Code(s): I50.20 - UNSPECIFIED SYSTOLIC (CONGESTIVE) HEART FAILURE Status: Chronic Qualifiers: Heart failure chronicity: chronic Qualified Code(s): I50.22 - Chronic systolic (congestive) heart failure (6) Hypertension Code(s): I10 - ESSENTIAL (PRIMARY) HYPERTENSION Status: Chronic Qualifiers: Hypertension type: essential hypertension Qualified Code(s): I10 - Essential (primary) hypertension - Plan Plan: This is an 83 yo female with a pmh of HTN, HLD, Afib, HFrEF, AAA with bypass, depression Acute hypoxic respiratory failure -Requiring vent support currently -Will attempt to wean pt from the vent Sepsis 2/2 C. diff colitis with ileus -POD #1 S/P open colectomy with ileostomy, -Improving vital signs, intubated -Continue IV metronidazole and meropenem -Currently on 26 of levophed -30-75ML of urine per hour out Acidosis, improving -Likely 2/2 above Orthostatic hypotension with syncope and fall -Original cc -Pt had run of torsades de pointes -Echo Shows EF 40-45% Klebsiella pneumoniae UTI -On meropenen currently, likely resolved VIRIDIANA HTN -Hold meds HFrEF -AICD in place, shut off by company A-fib -AICD -Holding Eliquis with recent fall Lung nodule -Outpt pulmonology consult if appropriate AAA -CT shows AAA with 3.1cm dilation -Previous surgery for aorto-bifemoral bypase HLD -Hold meds Depression -Hold home meds Addendum - Attending - Attending Attestation Date/Time: 06/06/19 1021 I personally evaluated the patient and discussed the management with Dr. Kumar. I agree with the History, Examination, Assessment and Plan documented above with any addition or exceptions noted below. Patient here for septic shock from toxic megacolon. She is s/p colectomy overnight. Continues on vent with pressor support. Critical but stable. Continue IV abx and pulm support, wean pressors as tolerated. Needs some glycemic control to promote wound healing. Renal function worse from baseline but somewhat improved, will continue to monitor and monitor UOP.
[2019-06-06] MEDS: metroNIDAZOLE 500 MG in Premix Bag 1 BAG IVPB SCH ×3 (06:04→18:24)
[2019-06-06] MEDS: MEROPENEM 1 GM/50 ML 1 GM in Premix Bag 1 BAG IVPB SCH (06:05)
--- NOTE | 2019-06-06 07:22 | OP ---
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 PROCEDURES PERFORMED: Exploratory laparotomy with subtotal colectomy and ileostomy creation, bilateral salpingectomy. ANESTHESIA: General endotracheal. INDICATIONS FOR PROCEDURE: The patient is an 83-year-old white female. She was recently diagnosed with Clostridium difficile colitis and has had a fairly sudden progressive decline requiring pressor administration to treat her hypotension. She has progressive renal dysfunction as well. I have recommended laparotomy with subtotal colectomy and treatment. DESCRIPTION OF OPERATION: Informed consent was obtained. The patient was taken to the operating room where general endotracheal anesthesia was obtained with the patient in supine position. Abdomen was prepped with ChloraPrep and draped in sterile fashion. A midline incision was created along the prior incision line from a large midline laparotomy. I believe this was the incision from her prior aortobifemoral bypass. She also had a right upper quadrant incision from an open cholecystectomy. Dissection was carried into the abdominal cavity. There were adhesions to the anterior abdominal wall and these were lysed carefully with meticulous sharp dissection. I continued to lyse the adhesions to the anterior abdominal wall until it was completely clear. The colon was quickly identified and noted to be markedly enlarged throughout. It was somewhat discolored in places, though there was no obvious full-thickness necrosis. There was no evidence of enteric material within the abdominal cavity. There were fairly extensive adhesions within the abdominal cavity. These were largely between omentum and small bowel as well as multiple interloop adhesions. There were also numerous adhesions between small bowel and colon. While I did not take down all interloop adhesions, in order to perform the colectomy, I mobilized all adhesions away from the colon as well as the . I then began to mobilize the colon in all areas by incising the white line of Toldt bilaterally and mobilizing the colon medially. The flexure was mobilized as well as the hepatic flexure. The gastrocolic omentum was divided as well. Within the pelvis, the peritoneum was incised heading down into the pelvis. Her fallopian tubes bilaterally appeared black and were dangling in the way of the rectum, therefore I removed both of them with the LigaSure device. These were each passed off as separate specimen. The uterus was visualized and was small and without visible or palpable abnormality. There was an appropriate pouch of Lucio. The rectum and its lower visualized portions had a more viable appearance. I therefore dissected the mesenteric window at the upper rectum and divided the rectum with a single fire of the 75 mm DANIELA stapler. Unfortunately, just after this was fired, an enterotomy occurred within the rectal stump adjacent to the staple line. A large volume of liquid enteric material drained through this opening. It was recognized to me that all of the irrigant was suctioned without any diffuse spillage. I then repaired that enterotomy with a couple of interrupted sutures of 2-0 silk placed in a [id number] fashion and inverted with additional 2-0 silk sutures. I tagged both ends of the staple line with 2-0 Prolene. I then began the colectomy, using large LigaSure device to divide the mesentery of the colon fairly close to the colonic wall. In this fashion, I divided the mesentery of the sigmoid colon, the ascending colon, the transverse colon, and eventually the right colon. I selected a spot of the distal ileum, which was cleared of its mesentery and the ileum was then divided with a stapler. The colon was then passed off the field as a specimen. The abdominal cavity was copiously irrigated with 5 L of saline and all irrigant was aspirated. While the small bowel did not appear normal, none of it appeared to be compromised. A #19 round fluted drain was obtained and brought out through the left abdominal wall and positioned within the deepest recess of the pelvis. An ileostomy opening was created in the right lower quadrant in the usual fashion and the terminal ileum was delivered through that opening. This was sutured internally with 4 interrupted sutures of 3-0 silk. at this point, all of the instrumentation used during the case was removed from the field. The abdominal wall was thoroughly cleansed with saline. Gowns and gloves were changed. Clean towels were then applied around the abdomen. A closing tray was utilized and the fascia was closed with a running suture of looped #1 PDS. The Pulsavac was used to copiously irrigate the midline abdominal wound with about 2 liters of saline. The skin edges were then approximated with skin eben in a loose fashion. Telfa adriana were placed between the eben. The midline wound was then excluded and attention was turned to the ileostomy. The ileostomy staple line was removed and the ileostomy was matured in the usual fashion, placing 4 interrupted eversion sutures of 3-0 Vicryl followed by full-thickness interrupted sutures of 3-0 Vicryl. The ileostomy appliance was applied as well as the dressing to the midline abdominal wound. The patient, although still in critical condition requiring pressors to maintain her blood pressure, had remained relatively stable throughout the operation. Blood loss was negligible and estimated at less than 15 mL. She was taken on the ventilator back to the intensive care unit in critical but stable condition. Job ID: [id number]
[2019-06-06 07:27] LABS: Actual Bicarbonate (HCO3a) 19.8 mEq/L (22-28); CO2 Tension 36.4 mmHg (35.0-45.0); Calcium, Ionized 1.09 mmol/L (1.12-1.30); Carboxyhemoglobin (COHb) 1.2 gm% (0.0-3.0); Hemoglobin (Hb) 14.6 g/dL (12.0-16.0); O2 Tension (PaO2) 84.9 mmHg (> 60.0); Potassium - ABG Lab 4.25 mmol/L (3.70-5.30); Puncture Site ALINE; pH, Arterial 7.35 (7.35-7.45)
--- NOTE | 2019-06-06 07:39 | PDOC.GSPN ---
Surgery Progress Note: Subj - Subjective Narrative: Patient is intubated in CCU. Currently stable with no acute events overnight and patient remained afebrile. Gastric drainage put out 1100 mL in the last 24 hr. Patient has had 318 mL urine from Leslie today. Surgery Progress Note: Obj - Vital signs Vital signs: Vital Signs - Most Recent Temp Pulse Resp BP Pulse Ox 97.1 F L 79 19 122/51 L 97 06/06/19 00:00 06/06/19 07:04 06/06/19 06:00 06/06/19 07:04 06/05/19 20:15 - Physical Exam General: other (Patient is non-responsive to verbal commands, but responds to pain. No apparent distress.) Cardiovascular: regular rate and rhythm, no murmur Respiratory: clear to auscultation, other (Mechanical ventilation) Abdomen: soft, nondistended, decreased bowel sounds Wound: dressing clean,dry,intact (over midline incision), ostomy/colostomy (No output from ileostomy.), other (Left AWILDA drain in place) Surgery Progress Note: Results - Labs Result Diagrams: 06/06/19 04:29 06/06/19 04:29 Lab results: Laboratory Results - last 24 hr 06/05/19 06/05/19 06/05/19 20:52 21:37 21:37 WBC 32.0 H RBC 4.64 Hgb 13.8 Hct 43.7 MCV 94.3 MCH 29.7 MCHC 31.5 L RDW 13.5 Plt Count 172 MPV 9.2 Neutrophils % (Manual) 58 Band Neuts % (Manual) 25 H Lymphocytes % (Manual) 5 L Monocytes % (Manual) 6 Metamyelocytes % (Man) 6 H Myelocytes % Neutrophils # Not Reportable Lymphocytes # Not Reportable Plt Morphology Comment Appears Adequate Specimen Type ARTERIAL Puncture Site MARYANNE Bicarbonate Actual 16.4 L ABG pH 7.25 L* ABG pCO2 37.8 ABG pO2 108.8 H ABG O2 Sat Calc/Vazquez 98.3 H ABG O2 Content 19.0 ABG Base Excess -10.0 L ABG Hematocrit 41.0 ABG Hemoglobin 13.9 ABG Oxyhemoglobin 96.8 ABG Carboxyhemoglobin 1.2 ABG Methemoglobin 0.30 ABG Deoxyhemoglobin 1.7 Nelson Test NOT DONE A-a O2 Gradient 343.050 H Sodium 140 139 Potassium 4.18 4.3 Chloride 108 H 110 H Ionized Calcium 1.11 L Mode of Support SIMV Mechanical Rate 16 Spontaneous Rate 0 Inspired O2 70 Tidal Volume 500 Pressure Support 10 PEEP or CPAP 5.0 Carbon Dioxide 20 L Anion Gap 13 BUN 46 H Creatinine 2.33 H Estimated GFR (MDRD) 20 Glucose 265 H Calcium 7.8 Phosphorus Magnesium 06/06/19 06/06/19 06/06/19 04:29 04:29 07:00 WBC 41.6 H* RBC 4.88 Hgb 14.2 Hct 45.9 MCV 94.0 MCH 29.1 MCHC 30.9 L RDW 13.7 Plt Count 144 MPV 10.1 Neutrophils % (Manual) 48 Band Neuts % (Manual) 30 H Lymphocytes % (Manual) 5 L Monocytes % (Manual) 8 Metamyelocytes % (Man) 8 H Myelocytes % 1 H Neutrophils # Not Reportable Lymphocytes # Not Reportable Plt Morphology Comment Appears Adequate Specimen Type ARTERIAL Puncture Site MARYANNE Bicarbonate Actual 19.8 L ABG pH 7.35 ABG pCO2 36.4 ABG pO2 84.9 H ABG O2 Sat Calc/Avzquez 97.0 ABG O2 Content 19.6 ABG Base Excess -5.0 L ABG Hematocrit 43.0 ABG Hemoglobin 14.6 ABG Oxyhemoglobin 95.5 ABG Carboxyhemoglobin 1.2 ABG Methemoglobin 0.30 ABG Deoxyhemoglobin 3.0 H Nelson Test NOT DONE A-a O2 Gradient 297.400 H Sodium 137 136 Potassium 4.3 4.25 Chloride 108 H 106 Ionized Calcium 1.09 L Mode of Support SIMV.PSV Mechanical Rate 16 Spontaneous Rate Inspired O2 60 Tidal Volume 500 Pressure Support 10 PEEP or CPAP 5.0 Carbon Dioxide 22 L Anion Gap 11 BUN 47 H Creatinine 2.23 H Estimated GFR (MDRD) 21 Glucose 285 H Calcium 7.8 Phosphorus 3.0 Magnesium 2.5 Surgery Progress Note: A/P - Problem (1) C. difficile colitis Current Visit: Yes Code(s): A04.72 - ENTEROCOLITIS D/T CLOSTRIDIUM DIFFICILE, NOT SPCF RECUR Status: Acute Assessment and Plan: Patient is an 83 year old female who is POD #1 from exploratory laparotomy with subtotal colectomy and ileostomy creation for toxic megacolon secondary to C. difficile colitis. Vital signs are stable and patient is afebrile. WBCs and Bands trending up, will continue to follow and continue Meropenem and Metronidazole while awaiting culture from periotoneal fluid. Patient's pressures are stable on Levophed currently at 26 mics/hr. H&H are stable. Will continue to monitor ileostomy and AWILDA drain for output. Hypotension is likely multifactorial. Will give additional IVF to treat hypovolemia. Hopefuly wean levophed.
--- NOTE | 2019-06-06 08:01 | RAD ---
PORTABLE CHEST: DATE: 06/06/2019. PROVIDED CLINICAL HISTORY: Respiratory insufficiency. FINDINGS: Comparison 06/05/2019. Significant interval change with respect to the prior examination is not appa rent. Nondisplaced fractures involving the left lateral 8th and 9th ribs noted. IMPRESSION: As above. POS: OFF
--- NOTE | 2019-06-06 08:22 | PRG ---
DATE OF SERVICE: 06/06/2019 TIME SPENT: This is 35 minutes of critical care time. SUBJECTIVE: The patient was taken to the OR last night for a colectomy, ileostomy. She was left intubated after surgery. She has been requiring Levophed. Her urine output has been adequate. OBJECTIVE: VITAL SIGNS: Temperature 97.1; pulse 81; blood pressure 117/53, currently on Levophed at 26 mcg/minute. Intake last 24 hours 2200, output 1100. NEUROLOGICAL: She is not sedated, but she will open her eyes and she will nod her head to commands and squeeze with her hands on command. HEENT: Otherwise, remarkable for bruise over left orbital region. NECK: No adenopathy or JVD. LUNGS: Clear. CARDIOVASCULAR: S1 ad S2 paced without murmur. ABDOMEN: Ileostomy noted. She has AWILDA drain in left. EXTREMITIES: No clubbing or cyanosis. She has generalized edema throughout. LABORATORY DATA: White blood cell count 41.6, hemoglobin 14.2, hematocrit 45.9, and platelet count 144. PH of 7.35, pCO2 of 36, pO2 of 84 on SIMV rate 16, tidal volume 500, PEEP 5, pressure support 10, and FiO2 of 60%. Sodium 137, potassium 4.3, chloride 108, CO2 of 22, BUN 47, creatinine 2.2, and glucose 285. ASSESSMENT: 1. Toxic megacolon. 2. Clostridium difficile colitis. 3. Septic shock. 4. Acute respiratory failure, requiring mechanical ventilation. 5. Status post colectomy. PLAN: 1. In my opinion, the patient is not weanable due to underlying sepsis. I would prefer to leave her intubated for a couple of days before proceeding with weaning, if that is possible. 2. Continue the meropenem and metronidazole. 3. Wean Levophed as tolerated. 4. Discontinue bicarb drip around noon today and start lactated Ringer's. 5. I have adjusted the ventilator parameters. Job ID: [id number]
[2019-06-06] MEDS ORDERED: Sodium Bicarbonate 70 MEQ in Dextrose 5% in Water 1,000 ML IV SCH (08:37)
[2019-06-06] MEDS ORDERED: Lactated Ringer's 1,000 ML IV SCH ×2 (08:45→12:00)
[2019-06-06] MEDS ORDERED: Pantoprazole 40 MG VIAL IVP SCH (09:00)
--- NOTE | 2019-06-06 09:41 | OP ---
DATE OF PROCEDURE: 06/05/2019 PROCEDURE PERFORMED: Femoral central line. INDICATION: Hypotensive, on pressors, IV access. PROCEDURE AEROSPACE PROJECT ENGINEER: Dr. Kumar, PGY-2. ATTENDING PHYSICIAN: Karl Lin MD, in attendance. ULTRASOUND USED: Yes. CONSENT: Consent was obtained from daughter prior to the procedure. Indications, risks, and benefits were explained at length. DESCRIPTION OF PROCEDURE: Sterile technique was performed , beginning with hand washing prior to downing sterile PPI. A time-out was performed. Then a surgical cap with mask eye protection, sterile gown and gloves where worn throughout the procedure. The right inguinal region was prepped using chlorhexidine scrub and draped in sterile fashion. A full drape with sterile probe cover employed. Femoral pulse identified both tactically and with ultrasound. Anesthesia was achieved using lidocaine 1% . Using ultrasound throughout the entire procedure, introducer needle was inserted into the left femoral artery under direct ultrasound visualization inferior to the inguinal crease and into the femoral vein. Venous blood was withdrawn. The syringe was removed. A guidewire was advanced through the introducer needle. A small incision was made at surface of skin with a scalpel. Introducer needle was exchanged for dilator over the guidewire. After appropriate dilation obtained, the dilator was exchanged over the wire for a 3-port central venous catheter. The wire was removed. The catheter was sutured in place at the hub. Sterile dressing was placed over the catheter insertion site. The patient tolerated the procedure well. At the time of procedure completion, all ports were aspirated and flushed properly. Estimated blood loss was less than 5 mL. Job ID: [id number] [facility]
[2019-06-06] MEDS: Famotidine/PF 20 mg/2ml Vial SLOW IVP SCH (10:29)
[2019-06-06] MEDS: Potassium Chloride 20 MEQ TAB PO SCH (10:29)
[2019-06-06] MEDS: Morphine 2 MG/ML SYRINGE SLOW IVP PRN ×2 (10:54→16:20)
[2019-06-06] MEDS: HumaLOG 300 UNITS/3 ML VIAL SC PRN ×2 (12:51→16:31)
--- NOTE | 2019-06-06 13:25 | PQF ---
DATE: 06-06-19 ATTN: DR. RAMON SOTO Please exercise your independent, professional judgment in responding to the clarification form. Clinical indicators are provided on the bottom of this form for your review Diagnosis: SEPSIS Present on Admission (POA): [ ] Yes [ x ] No [ ] Unable to determine Coding guidelines require hospitals to identify whether a diagnosis was present on admission (POA) or not. To accurately assign the appropriate POA indicator, this information must be clearly documented within the medical record. CLINICAL INDICATORS - SIGNS / SYMPTOMS / LABS: H&P: 06-03-19: UTI, SYNCOPE, HTN, CHRONIC SYSTOLIC CHF ER NOTE 06-03-19: SYNCOPE, FACIAL CONTUSION, R THUMB CONTUSION, UTI PN DR. CHARLES NAVARRO 06-05-19: SEPSIS 2/2 C DIFF COLITIS WITH ILEUS CONSULT NOTE DR. XAVIER 06-05-19: ACUTE ABDOMEN, SUSPECTED TOXIC MEGACOLON CONSULT NOTE DR. AHN 06-06-19: TOXIC MEGACOLON, C DIFF COLITIS, SEPTIC SHOCK, ACUTE RESPIRATORY FAILURE, REQUIRING MECHANICAL VENTILATION, S/P COLECTOMY WBC: 06-01-19: 14.0 06-03-19: 14.2 06-05-19: 37.1 06-05-19: 36.6 06-05-19: 32.0 06-06-19: 41.6 BANDS: 06-05-19: 36 06-05-19: 34 06-05-19: 25 06-06-19: 30 TEMP: 06-02-19: 99 06-03-19: 99.8 RISK FACTORS: ER NOTE 06-03-19: SYNCOPE, FACIAL CONTUSION, R THUMB CONTUSION, UTI CONSULT NOTE DR. XAVIER 06-05-19: ACUTE ABDOMEN, SUSPECTED TOXIC MEGACOLON TREATMENT: ER 06-03-19: NS IVF, CEFTRIAXONE IV MAR: 06-06-19: LR IVF, MEROPENEM IV, 06-05-19: FLAGYL IV (This form is maintained as a part of the permanent medical record) 2014 [employer], [place]. All Rights Reserved ABRAN [email or web address] Office: [phone] [facility]
[2019-06-06 13:28] LABS: Anion Gap 11 mmol/L (10-20); BUN (Urea Nitrogen) 45 mg/dL (9.8-20.1); Calc. Creatinine Clearance 20 mL/min (70-130); Calcium 7.6 mg/dL (7.8-10.44); Carbon Dioxide 23 mmol/L (23-31); Chloride 106 mmol/L (98-107); Estimated GFR-MDRD 23; Glucose 352 mg/dL (83-110); Potassium 4.2 mmol/L (3.5-5.1); Sodium 136 mmol/L (136-145)
[2019-06-06] MEDS: Lactated Ringer's 1,000 ML IV SCH ×2 (16:28→23:20)
[2019-06-06] MEDS: Meropenem 500 MG in Sodium Chloride 0.9% 100 ML IVPB SCH (18:24)
[2019-06-06] MEDS: Enoxaparin Sodium 30 MG/0.3 ML SYRINGE SC SCH (20:39)
[2019-06-07] MEDS: metroNIDAZOLE 500 MG in Premix Bag 1 BAG IVPB SCH ×4 (00:04→17:34)
[2019-06-07] MEDS: HumaLOG 300 UNITS/3 ML VIAL SC PRN ×3 (03:37→15:57)
[2019-06-07 04:20] LABS: Hemoglobin 13.9 g/dL (12.0-16.0); Mean Corpuscular HGB CONC 32.5 g/dL (32.0-36.0); Mean Corpuscular Hemoglobin 30.2 pg (27.0-31.0); RBC Distribution Width 13.6 % (11.5-14.5); Red Blood Cell (RBC) Count 4.59 mill/uL (4.20-5.40)
[2019-06-07 04:37] LABS: Phosphorus 1.9 mg/dL (2.3-4.7)
[2019-06-07 04:38] LABS: ALT (SGPT) 16 U/L (8-55); AST (SGOT) 31 U/L (5-34); Albumin 2.3 g/dL (3.4-4.8); Alkaline Phosphatase 73 U/L (40-110); Anion Gap 12 mmol/L (10-20); BUN (Urea Nitrogen) 48 mg/dL (9.8-20.1); Bilirubin, Total 0.3 mg/dL (0.2-1.2); Calc. Creatinine Clearance 23 mL/min (70-130); Calcium 7.5 mg/dL (7.8-10.44); Carbon Dioxide 23 mmol/L (23-31); Chloride 105 mmol/L (98-107); Estimated GFR-MDRD 26; Glucose 251 mg/dL (83-110); Magnesium 2.4 mg/dL (1.6-2.6); Potassium 4.2 mmol/L (3.5-5.1); Protein, Total 4.3 g/dL (6.0-8.3); Sodium 136 mmol/L (136-145)
[2019-06-07 04:43] LABS: Band 28 % (5-11); Elliptocytes MODERATE= 6-15 cells (100X) (0-1/hpf); Hypochromia MODERATE=16-30 cells (100X) (0-5/hpf); Lymphocytes 4 % (21-51); MDiff Complete? YES; Mean Platelet Volume 9.8 fL (7.4-10.4); Metamyelocyte 5 % (0-0); Monocytes 7 % (0-10); Myelocyte 5 % (0-0); Neutrophil 51 % (42-75); Nucleated RBC 1 % (0); Platelet Count 64 thou/uL (130-400); Platelet Morphology Comment Appears Decreased; Polychromasia SLIGHT = 2-3 cells (100X) (0-2/hpf); Reflex for Review?? YES
[2019-06-07] MEDS ORDERED: CCU Electrolyte Replacement 1 EACH FS ONE (04:52)
[2019-06-07] MEDS ORDERED: PHOS-NAK 1 PKT PACK PO PRN ×2 (04:54)
[2019-06-07] MEDS ORDERED: Magnesium Oxide 400 MG TAB PO PRN (04:54)
[2019-06-07] MEDS ORDERED: Potassium Phosphate 9 MMOL in Sodium Chloride 0.9% 100 ML IVPB PRN (04:54)
[2019-06-07] MEDS ORDERED: Potassium Phosphate 12 MMOL in Sodium Chloride 0.9% 250 ML 250 ML IV PRN (04:54)
[2019-06-07] MEDS ORDERED: Potassium Chloride 40 MEQ in Premix Bag 1 BAG IVPB PRN (04:54)
[2019-06-07] MEDS ORDERED: Potassium Phosphate 15 MMOL in Sodium Chloride 0.9% 250 ML 250 ML IV PRN (04:54)
[2019-06-07] MEDS ORDERED: Potassium Chloride 40 MEQ in Sodium Chloride 0.9% 250 ML 250 ML IVPB PRN (04:54)
[2019-06-07] MEDS ORDERED: CCU ELECTROLYTE REPLACEMENT PROTOCOL FS PRN (04:54)
[2019-06-07] MEDS ORDERED: Magnesium 2 GM/50 ML 2 GM in Premix Bag 1 BAG IVPB PRN (04:54)
[2019-06-07] MEDS ORDERED: Potassium Chloride 20 MEQ TAB PO PRN (04:54)
--- NOTE | 2019-06-07 05:07 | PDOC.FM ---
- Subjective Subjective: Nursing reports no acute events overnight. She states she has been draining the AWILDA drain almost every hour. She has been able to wean the levophed some overnight. - Objective Vital Signs & Weight: Vital Signs (12 hours) Temp Pulse Resp BP Pulse Ox 06/07/19 04:00 98.7 F 16 06/07/19 03:05 88 06/07/19 02:00 16 06/07/19 00:00 98.9 F 16 06/06/19 23:48 86 109/49 L 06/06/19 22:00 16 06/06/19 20:00 99.1 F 21 H 06/06/19 19:32 80 06/06/19 19:30 99 06/06/19 18:00 16 Weight Admit Weight 56.835 kg Weight 64.5 kg Most Recent Monitor Data Heart Rate from ECG 78 NIBP 121/62 NIBP BP-Mean 81 Respiration from ECG 0 SpO2 99 I&O: 06/05/19 06/06/19 06/07/19 06:59 06:59 06:59 Intake Total 2200 1484 2947 Output Total 4221 578 3870 Balance 1100 966 920 Result Diagrams: 06/07/19 03:30 06/07/19 03:30 Phys Exam - Physical Examination GCS [id number] HEENT: PERRLA, sclera anicteric Dry mm Neck: no JVD Respiratory: no wheezing, no rales, no rhonchi, clear to auscultation bilateral Cardiovascular: RRR, no significant murmur Gastrointestinal: soft, no distention, positive bowel sounds AWILDA drain inplace, ileostomy appears patent and intact, midline incision dressing is dry Musculoskeletal: no edema, pulses present Neurological: moves all 4 limbs Skin: normal turgor, cap refill <2 seconds Dx/Plan (1) C. difficile colitis Code(s): A04.72 - ENTEROCOLITIS D/T CLOSTRIDIUM DIFFICILE, NOT SPCF RECUR Status: Acute (2) Acute respiratory failure with hypoxia Code(s): J96.01 - ACUTE RESPIRATORY FAILURE WITH HYPOXIA Status: Acute (3) Syncope Code(s): R55 - SYNCOPE AND COLLAPSE Status: Acute Qualifiers: Syncope type: unspecified Qualified Code(s): R55 - Syncope and collapse (4) UTI (urinary tract infection) Status: Acute Qualifiers: Urinary tract infection type: acute cystitis Hematuria presence: without hematuria Qualified Code(s): N30.00 - Acute cystitis without hematuria (5) HFrEF (heart failure with reduced ejection fraction) Code(s): I50.20 - UNSPECIFIED SYSTOLIC (CONGESTIVE) HEART FAILURE Status: Chronic Qualifiers: Heart failure chronicity: chronic Qualified Code(s): I50.22 - Chronic systolic (congestive) heart failure (6) Hypertension Code(s): I10 - ESSENTIAL (PRIMARY) HYPERTENSION Status: Chronic Qualifiers: Hypertension type: essential hypertension Qualified Code(s): I10 - Essential (primary) hypertension - Plan Plan: This is an 83 yo female with a pmh of HTN, HLD, Afib, HFrEF, AAA with bypass, depression Acute hypoxic respiratory failure -Requiring vent support currently -Will attempt to wean pt from the vent Sepsis 2/2 C. diff colitis with ileus -POD #2 S/P open colectomy with ileostomy, -Improving vital signs, intubated -Continue IV metronidazole and meropenem -Currently on 22 of levophed, continued to wean off -20-50ML of urine per hour out -White count continues rising Acidosis, improving -Likely 2/2 above Orthostatic hypotension with syncope and fall -Original cc -Pt had run of torsades de pointes -Echo Shows EF 40-45% Klebsiella pneumoniae UTI -On meropenen currently, likely resolved Hyperglycemia -Non-diabetic, requiring insulin -Adding lantus 7 units sc -Goal BS below 180 VIRIDIANA HTN -Hold meds HFrEF -AICD in place, shut off by company A-fib -AICD, turned off -Holding Eliquis with recent fall Lung nodule -Outpt pulmonology consult if appropriate AAA -CT shows AAA with 3.1cm dilation -Previous surgery for aorto-bifemoral bypase HLD -Hold meds Depression -Hold home meds Left AWILDA drain put out 1000ml over the last 24 hour CrCl 23, changing dvt ppx to heparin 5000 units sub q Ewiiaapaayp II score 40% non-operative mortality Addendum - Attending - Attending Attestation Date/Time: 06/07/19 8003 I personally evaluated the patient and discussed the management with Dr. Kumra. I agree with the History, Examination, Assessment and Plan documented above with any addition or exceptions noted below. Patient here with septic shock 2/2 Cdiff toxic megacolon s/p colectomy. She is overall stable but continues to be critically ill. Continues to require pressor support, has been adequately volume resuscitated and making adequate urine. Continue to wean pressors as tolerated. Continues on ventilator until her sepsis is improving, Pulm on board. AWILDA drains having excess output, and ileostomy is not active yet. No bowel sounds on exam. Continue to monitor and anticipate improvement over the coming days. Continue broad spectrum abx for enteric organisms. WBC elevated but afebrile and overall stable. Renal function somewhat improved today.
[2019-06-07] MEDS: Meropenem 500 MG in Sodium Chloride 0.9% 100 ML IVPB SCH ×2 (05:09→17:34)
[2019-06-07] MEDS: Norepinephrine 8 MG in Dextrose 5% in Water 242 ML IVPB PRN ×3 (05:14→23:16)
[2019-06-07] MEDS ORDERED: Insulin Glargine 7 UNITS in Pre-Filled Syringe 1 EACH SC SCH (06:30)
[2019-06-07 07:48] LABS: Actual Bicarbonate (HCO3a) 18.6 mEq/L (22-28); Base Excess (BEa) -4.7 mEq/L (-2.0 to +3.0); CO2 Tension 29.9 mmHg (35.0-45.0); Calcium, Ionized 1.08 mmol/L (1.12-1.30); Carboxyhemoglobin (COHb) 0.9 gm% (0.0-3.0); Hemoglobin (Hb) 13.8 g/dL (12.0-16.0); O2 Tension (PaO2) 89.7 mmHg (> 60.0); Potassium - ABG Lab 4.32 mmol/L (3.70-5.30); pH, Arterial 7.41 (7.35-7.45)
[2019-06-07 08:00] LABS: ALV-art Gradient 229.425 (0-20); Puncture Site ALINE
--- NOTE | 2019-06-07 09:44 | RAD ---
PORTABLE SUPINE CHEST: HISTORY: Pneumonia followup. CCU followup. COMPARISON: 06/06/2019. FINDINGS: No focal or confluent infiltrate. Heart size upper normal and stable. ET tube and NG tube remain in place. IMPRESSION: No evidence of acute interval change. POS: [facility]
[2019-06-07] MEDS: Lactated Ringer's 1,000 ML IV SCH ×3 (09:46→23:17)
[2019-06-07] MEDS: Famotidine/PF 20 mg/2ml Vial SLOW IVP SCH (09:47)
[2019-06-07] MEDS: Heparin 5,000 UNITS/ML VIAL SC SCH ×2 (09:47→20:51)
[2019-06-07] MEDS: Potassium Chloride 20 MEQ TAB PO SCH (09:47)
--- NOTE | 2019-06-07 10:25 | PRG ---
DATE OF SERVICE: 06/07/2019 SUBJECTIVE: This morning intubated in the vent and sedated with several different medications. OBJECTIVE: VITAL SIGNS: Pulse is 78, blood pressure is 110/80. She is on Levophed. Saturations are 100%, respirations 18. I's and O's slightly ahead. NEUROLOGICAL: She is awake. CHEST: Decreased breath sounds. Minimal rhonchi. CARDIAC: Normal S1 and S2. No gallops. ABDOMEN: No masses. LABORATORY DATA: White count 54,000, H and H 13 and 42, platelet count is 64. Big left shift, 51 segs, 28 bands. PO2 is 89, pCO2 is 29%, Creatinine 1.83. ASSESSMENT: 1. Status post laparotomy for Clostridium diff colitis, toxic megacolon. 2. Sepsis. 3. Respiratory failure. 4. Renal failure. At this stage, she is not weanable. We will continue Levophed. Nutrition as per Surgery. PT supportive care. One-half hour of critical time. Job ID: [id number]
[2019-06-07] MEDS: Sodium Chloride 0.9% 500 ML IV SCH ×2 (10:35→11:30)
--- NOTE | 2019-06-07 10:38 | PRG ---
DATE OF SERVICE: 06/07/2019 SUBJECTIVE: The patient reports feeling better, less pain. She still has some mild nausea. She is more awake. She is on the vent. No new complaints. OBJECTIVE: VITAL SIGNS: On exam, her temperature is 98.7, pulse 82, blood pressure 110/50, but she is still on some pressors. GENERAL: She complains of thirst. LUNGS: Clear. ABDOMEN: Slightly distended. Incision is healing well. The ostomy is pink, but no output yet. NG drainage 200. Urine output has been low about 900 for 24 hours. LABORATORY DATA: Her electrolytes are fine. Her potassium is 4.2; BUN, however, is elevated at 48, which is climbing; and creatinine is 1.8, which is down. Her CO2 is normal at 23. Her white count has climbed to 54,000, H and H are 13 and 42, platelet count of 64,000. ASSESSMENT: Volume depletion worrisome for yeast sepsis. PLAN: I agree with adding micafungin. I ordered a bolus of normal saline. I recommend holding the potassium, especially oral potassium as she has an ileus and it is not going to be effective plus the fact that she has some renal insufficiency at this time, which is related to her volume depletion, so I stopped the potassium supplementation. Job ID: [id number]
--- NOTE | 2019-06-07 15:46 | EKG ---
Test Reason : Blood Pressure : / mmHG Vent. Rate : 078 BPM Atrial Rate : 150 BPM P-R Int : 000 ms QRS Dur : 128 ms QT Int : 390 ms P-R-T Axes : 000 019 178 degrees QTc Int : 444 ms Ventricular-paced rhythm Abnormal ECG Confirmed by TISH MAGUIRE ([id number]), department editor ANNY ADAIR ([id number]) on 06/07/2019 3:46:00 PM Referred By: Confirmed By:TISH MAGUIRE
[2019-06-08] MEDS: metroNIDAZOLE 500 MG in Premix Bag 1 BAG IVPB SCH ×5 (00:53→23:49)
[2019-06-08 04:01] LABS: Hemoglobin 13.6 g/dL (12.0-16.0); Mean Corpuscular HGB CONC 32.4 g/dL (32.0-36.0); Mean Corpuscular Hemoglobin 29.6 pg (27.0-31.0); Mean Corpuscular Volume 91.3 fL (78.0-98.0); Mean Platelet Volume 10.4 fL (7.4-10.4); Platelet Count 40 thou/uL (130-400); RBC Distribution Width 14.1 % (11.5-14.5); Red Blood Cell (RBC) Count 4.58 mill/uL (4.20-5.40); White Blood Cell (WBC) Count 41.9 thou/uL (4.8-10.8)
[2019-06-08 04:13] LABS: MDiff Complete? YES
[2019-06-08 04:14] LABS: Band 9 % (5-11); Lymphocytes 7 % (21-51); Metamyelocyte 3 % (0-0); Monocytes 5 % (0-10); Myelocyte 2 % (0-0); Neutrophil 74 % (42-75); Platelet Morphology Comment Appears Decreased
[2019-06-08 04:17] LABS: Phosphorus 2.1 mg/dL (2.3-4.7)
[2019-06-08 04:22] LABS: ALT (SGPT) 13 U/L (8-55); AST (SGOT) 26 U/L (5-34); Alkaline Phosphatase 76 U/L (40-110); Anion Gap 12 mmol/L (10-20); BUN (Urea Nitrogen) 46 mg/dL (9.8-20.1); Bilirubin, Total 0.3 mg/dL (0.2-1.2); Calc. Creatinine Clearance 36 mL/min (70-130); Calcium 7.3 mg/dL (7.8-10.44); Carbon Dioxide 20 mmol/L (23-31); Chloride 109 mmol/L (98-107); Estimated GFR-MDRD 45; Globulin 1.9 g/dL (2.4-3.5); Glucose 200 mg/dL (83-110); Magnesium 2.2 mg/dL (1.6-2.6); Potassium 4.2 mmol/L (3.5-5.1); Protein, Total 3.9 g/dL (6.0-8.3); Sodium 137 mmol/L (136-145)
[2019-06-08] MEDS: HumaLOG 300 UNITS/3 ML VIAL SC PRN ×2 (05:11→23:09)
--- NOTE | 2019-06-08 05:23 | PDOC.FM ---
- Subjective Subjective: Nursing reports pt follows commands intermittently overnight. She reports being able to titrate the levophed down to 10 overnight. She denies any acute events. - Objective MAR Reviewed: Yes Vital Signs & Weight: Vital Signs (12 hours) Temp Pulse Resp BP Pulse Ox 06/08/19 04:00 23 H 06/08/19 03:16 84 06/08/19 02:00 23 H 06/08/19 00:00 98.9 F 19 06/07/19 23:43 100 115/58 L 06/07/19 22:00 20 06/07/19 20:00 22 H 100 06/07/19 19:26 90 06/07/19 19:00 99.3 F 06/07/19 18:00 22 H Weight Admit Weight 56.835 kg Weight 64.6 kg Most Recent Monitor Data Heart Rate from ECG 94 NIBP 111/56 NIBP BP-Mean 74 Respiration from ECG 22 SpO2 100 I&O: 06/06/19 06/07/19 06/08/19 06:59 06:59 06:59 Intake Total 1484 4812 3131 Output Total 518 2262 2996 Balance 966 2550 135 Result Diagrams: 06/08/19 03:40 06/08/19 03:40 Phys Exam - Physical Examination Intubated, no appearant disress HEENT: PERRLA Dry mm Neck: no JVD Respiratory: no wheezing, clear to auscultation bilateral Cardiovascular: no significant murmur Regular rate, irregular rhythm Gastrointestinal: soft, no distention, positive bowel sounds Ostomy is producing, dresssings are dry, mild guarding with palpation Musculoskeletal: pulses present, edema present (some non pitting upper extremity edema) Neurological: moves all 4 limbs Skin: normal turgor, cap refill <2 seconds Dx/Plan (1) C. difficile colitis Code(s): A04.72 - ENTEROCOLITIS D/T CLOSTRIDIUM DIFFICILE, NOT SPCF RECUR Status: Acute (2) Acute respiratory failure with hypoxia Code(s): J96.01 - ACUTE RESPIRATORY FAILURE WITH HYPOXIA Status: Acute (3) Syncope Code(s): R55 - SYNCOPE AND COLLAPSE Status: Acute Qualifiers: Syncope type: unspecified Qualified Code(s): R55 - Syncope and collapse (4) UTI (urinary tract infection) Status: Acute Qualifiers: Urinary tract infection type: acute cystitis Hematuria presence: without hematuria Qualified Code(s): N30.00 - Acute cystitis without hematuria (5) HFrEF (heart failure with reduced ejection fraction) Code(s): I50.20 - UNSPECIFIED SYSTOLIC (CONGESTIVE) HEART FAILURE Status: Chronic Qualifiers: Heart failure chronicity: chronic Qualified Code(s): I50.22 - Chronic systolic (congestive) heart failure (6) Hypertension Code(s): I10 - ESSENTIAL (PRIMARY) HYPERTENSION Status: Chronic Qualifiers: Hypertension type: essential hypertension Qualified Code(s): I10 - Essential (primary) hypertension - Plan Plan: This is an 83 yo female with a pmh of HTN, HLD, Afib, HFrEF, AAA with bypass, depression Acute hypoxic respiratory failure -Requiring vent support currently -Will attempt to wean pt from the vent Sepsis 2/2 C. diff colitis with ileus -POD #3 S/P open colectomy with ileostomy, -Improving vital signs, intubated -Continue IV metronidazole and meropenem -Currently on 22 of levophed, continued to wean off -20-50ML of urine per hour out -White count continues rising Acidosis, improving -Likely 2/2 above Orthostatic hypotension with syncope and fall -Original cc -Pt had run of torsades de pointes -Echo Shows EF 40-45% Klebsiella pneumoniae UTI -On meropenen currently, likely resolved Hyperglycemia -Non-diabetic, requiring insulin -Adding lantus 7 units sc -Goal BS below 180 Severe Thrombocytopenia, likely 2/2 sepsis -Pending coagulation studies -Will follow with AM CBC VIRIDIANA -Improving -Continue IV hydration HTN -Hold meds HFrEF -AICD in place, shut off by [facility] A-fib -AICD, turned off -Holding Eliquis with recent fall Lung nodule -Outpt pulmonology consult if appropriate AAA -CT shows AAA with 3.1cm dilation -Previous surgery for aorto-bifemoral bypase HLD -Hold meds Depression -Hold home meds Left AWILDA drain put out 1530ml over the last 24 hour CrCl 23, changing dvt ppx to heparin 5000 units sub q [place] II score 40% non-operative mortality Addendum - Attending - Attending Attestation Date/Time: 06/08/19 6435 I personally evaluated the patient and discussed the management with Dr. Kumar. I agree with the History, Examination, Assessment and Plan documented above with any addition or exceptions noted below. Patient overall with some improvement. Continues to be intubated, but is awake and able to follow basic commands, taking some spontaneous breaths. Continue vent mgmt per Pulm and treat underlying sepsis. She has remained afebrile and WBC downtrending somewhat. She continues on broad spectrum abx, cultures pending. Surgery on board. She has worsening thrombocytopenia due to infection, holding heparin. Continue with glycemic control.
[2019-06-08] MEDS: Meropenem 500 MG in Sodium Chloride 0.9% 100 ML IVPB SCH ×2 (06:31→17:03)
[2019-06-08 06:41] LABS: INR-International Normal Ratio 1.5; Prothrombin Time 17.9 SEC (12.0-14.7)
[2019-06-08 06:42] LABS: PTT 37.7 SEC (22.9-36.1)
[2019-06-08 07:21] LABS: ALV-art Gradient 147.775 (0-20); Actual Bicarbonate (HCO3a) 20.2 mEq/L (22-28); CO2 Tension 30.9 mmHg (35.0-45.0); Calcium, Ionized 1.11 mmol/L (1.12-1.30); Carboxyhemoglobin (COHb) 1.3 gm% (0.0-3.0); Hemoglobin (Hb) 13.7 g/dL (12.0-16.0); O2 Tension (PaO2) 98.8 mmHg (> 60.0); Potassium - ABG Lab 3.99 mmol/L (3.70-5.30); Puncture Site ALINE; pH, Arterial 7.43 (7.35-7.45)
[2019-06-08] MEDS: Lactated Ringer's 1,000 ML IV SCH ×2 (08:36→17:03)
[2019-06-08] MEDS: Famotidine/PF 20 mg/2ml Vial SLOW IVP SCH (08:37)
[2019-06-08] MEDS: Insulin Glargine 12 UNITS in Pre-Filled Syringe 1 EACH SC SCH (08:37)
[2019-06-08] MEDS ORDERED: Insulin Glargine 7 UNITS in Pre-Filled Syringe 1 EACH SC SCH (09:00)
--- NOTE | 2019-06-08 10:43 | RAD ---
PORTABLE CHEST: HISTORY: Pneumonia. CCU followup. COMPARISON: 06/07/2019. FINDINGS: Bibasilar atelectasis and infiltrates and small effusions. ET tube and NG Tube remain in place. Pac emaker leads unchanged. Upper lung ang remain clear. IMPRESSION: No interval change. POS: [facility]
--- NOTE | 2019-06-08 13:56 | PRG ---
DATE OF SERVICE: 06/08/2019 SUBJECTIVE: The patient is doing better. She is not really requiring any sedation. Her NG output has dropped to almost zero. Her ostomy has started putting out her pain is improved. OBJECTIVE: VITAL SIGNS: Her temperature is 97.2, pulse of 95, and blood pressure of 161/67. ABDOMEN: Less distended, soft, nontender. Again, there was quite a bit of liquid output in the ileostomy bag. The stoma looks healthy. Urine output is improving. LABORATORY DATA: Her white blood cell count is down from 54 to 41.9. Her electrolytes show potassium is holding steady at 4.2, CO2 is 20, her creatinine is better at 1.15, BUN is better at 46, glucose is 200. ASSESSMENT: Improved. PLAN: Recommend at low rate. We will consult the room service supervisor to help with management. Dr. Galeana will be back tomorrow. Job ID: [id number]
[2019-06-08] MEDS: Morphine 2 MG/ML SYRINGE SLOW IVP PRN (17:10)
[2019-06-09] MEDS: HumaLOG 300 UNITS/3 ML VIAL SC PRN ×4 (05:08→23:43)
--- NOTE | 2019-06-09 05:22 | PDOC.FM ---
- Subjective Subjective: Patient has swelling to LUE this morning, some swelling to right hand, no swelling BLE. Her blood pressures have remained stable off of pressers overnight. Ileostomy has output 1065 over last 24 hrs. She remains intubated on 40% FiO2 on ventilator. - Objective Vital Signs & Weight: Vital Signs (12 hours) Temp Pulse Resp BP Pulse Ox 06/09/19 04:00 97.2 F L 06/09/19 02:20 98 06/09/19 02:00 19 06/09/19 00:00 98.3 F 20 06/08/19 22:40 96 116/48 L 06/08/19 22:00 20 06/08/19 20:00 19 100 06/08/19 19:15 96 06/08/19 19:00 99.0 F 06/08/19 18:00 21 H Weight Admit Weight 56.835 kg Weight 68.2 kg Most Recent Monitor Data Heart Rate from ECG 82 NIBP 115/68 NIBP BP-Mean 83 Respiration from ECG 20 SpO2 100 I&O: 06/07/19 06/08/19 06/09/19 06:59 06:59 06:59 Intake Total 4812 4819 666 Output Total 2262 3376 3104 Balance 2550 1443 -2438 Result Diagrams: 06/10/19 04:17 06/10/19 04:17 Phys Exam - Physical Examination Constitutional: NAD sedated HEENT: PERRLA +cervical adenopathy Neck: supple Respiratory: no wheezing, clear to auscultation bilateral Cardiovascular: RRR, no significant murmur Gastrointestinal: soft, no distention diminished bowel sounds. Midline incision. AWILDA drain has minimal serosanguin ous output. Small amount of output from ostomy. Edema to LUE, no lower extremity swelling Intubated and sedated Skin: normal turgor, cap refill <2 seconds Deviation from normal: Bruising over face Dx/Plan (1) Acute respiratory failure with hypoxia Code(s): J96.01 - ACUTE RESPIRATORY FAILURE WITH HYPOXIA Status: Acute (2) C. difficile colitis Code(s): A04.72 - ENTEROCOLITIS D/T CLOSTRIDIUM DIFFICILE, NOT SPCF RECUR Status: Acute (3) Syncope Code(s): R55 - SYNCOPE AND COLLAPSE Status: Acute Qualifiers: Syncope type: unspecified Qualified Code(s): R55 - Syncope and collapse (4) UTI (urinary tract infection) Status: Acute Qualifiers: Urinary tract infection type: acute cystitis Hematuria presence: without hematuria Qualified Code(s): N30.00 - Acute cystitis without hematuria (5) HFrEF (heart failure with reduced ejection fraction) Code(s): I50.20 - UNSPECIFIED SYSTOLIC (CONGESTIVE) HEART FAILURE Status: Chronic Qualifiers: Heart failure chronicity: chronic Qualified Code(s): I50.22 - Chronic systolic (congestive) heart failure (6) Hypertension Code(s): I10 - ESSENTIAL (PRIMARY) HYPERTENSION Status: Chronic Qualifiers: Hypertension type: essential hypertension Qualified Code(s): I10 - Essential (primary) hypertension - Plan Plan: This is an 83 yo female with a pmh of HTN, HLD, Afib, HFrEF, AAA with bypass, depression Acute hypoxic respiratory failure -Requiring vent support currently -Will attempt to wean pt from the vent Sepsis 2/2 C. diff colitis with ileus -POD #4 S/P open colectomy with ileostomy -Improving vital signs, intubated -White count much improved, WBC 18 this AM -Continue IV metronidazole and meropenem, micafungin -Weaned off of levophed yesterday evening, vitals stable -20-30ML of urine per hour out over last few hours Swelling LUE -all anticoagulants held -LUE US pending Acidosis, resolved -Likely 2/2 above Orthostatic hypotension, hx syncope and fall -Original cc -Pt had run of torsades de pointes -Echo Shows EF 40-45% Klebsiella pneumoniae UTI -On meropenen currently, likely resolved Hyperglycemia -Non-diabetic, requiring insulin -Lantus 12 units sc, with SSI -Goal BS below 180 Severe Thrombocytopenia, likely 2/2 sepsis - Plt donis of 40, now 45 - Heparin stopped yesterday, will restart lovenox once plt >100 - PT elevated to 17.9, aPTT 37.7 VIRIDIANA -Improving, GFR 55 this AM -Continue IV hydration HTN -Hold meds HFrEF -AICD in place, shut off by [employer] A-fib -AICD, turned off -Holding Eliquis with recent fall Lung nodule -Outpt pulmonology consult if appropriate AAA -CT shows AAA with 3.1cm dilation -Previous surgery for aorto-bifemoral bypass HLD -Hold meds Depression -Hold home meds Deconditioning -PT/OT consulted -Neuro chair Left AWILDA drain put out 1440 ml over the last 24 hour Ileostomy - 1065 ml over last 24 hrs Access: Rt Femoral Central line, LUE art line NG placed on feeds, insurance agency sales manager consulted Dispo: In CCU, continue to wean ventilator. Continue PT for ROM exercises, continue to monitor output closely. Addendum - Attending - Attending Attestation Date/Time: 06/09/19 6416 I personally evaluated the patient and discussed the management with Dr. Swain I agree with the History, Examination, Assessment and Plan documented above with any addition or exceptions noted below. Remains intubated. Pulm/Crit care managing. Not able to extubate. Left UE swelling. Sono pending to rule out clot. Likely related to peripheral IV use in that arm. IVs have been removed. Compression stocking as tolerated. Isotomy functioning well. Adequate output. No leakage. Gen Surg following. Sepsis complicated by severe C. dif with toxic zaid colon vs ileus - slow to improve. Continue IV metroniadozole. Will need to discuss use of Vanc. Per rec both metro and vanc recommended for treatment. Will curbside ID. Also covered for enterics and fungus. WBC improved. VSS. Not on pressors. Afebrile. ProsperMD
[2019-06-09] MEDS: Lactated Ringer's 1,000 ML IV SCH ×3 (05:25→23:45)
[2019-06-09 05:46] LABS: Band 7 % (5-11); Hemoglobin 12.9 g/dL (12.0-16.0); Lymphocytes 17 % (21-51); MDiff Complete? YES; Mean Corpuscular HGB CONC 32.7 g/dL (32.0-36.0); Mean Corpuscular Volume 91.9 fL (78.0-98.0); Mean Platelet Volume 10.5 fL (7.4-10.4); Monocytes 6 % (0-10); Neutrophil 68 % (42-75); Nucleated RBC 1 % (0); Platelet Count 45 thou/uL (130-400); Platelet Morphology Comment Appears Decreased; RBC Distribution Width 14.3 % (11.5-14.5); RBC Morphology Normal; Reactive Lymphocytes 2 % (0-10); Red Blood Cell (RBC) Count 4.31 mill/uL (4.20-5.40); White Blood Cell (WBC) Count 18.4 thou/uL (4.8-10.8)
[2019-06-09 05:53] LABS: ALT (SGPT) 10 U/L (8-55); AST (SGOT) 17 U/L (5-34); Albumin 1.9 g/dL (3.4-4.8); Alkaline Phosphatase 61 U/L (40-110); Anion Gap 9 mmol/L (10-20); BUN (Urea Nitrogen) 55 mg/dL (9.8-20.1); Bilirubin, Total 0.2 mg/dL (0.2-1.2); Calc. Creatinine Clearance 38 mL/min (70-130); Calcium 7.5 mg/dL (7.8-10.44); Carbon Dioxide 22 mmol/L (23-31); Chloride 110 mmol/L (98-107); Estimated GFR-MDRD 44; Globulin 1.7 g/dL (2.4-3.5); Glucose 190 mg/dL (83-110); Magnesium 2.2 mg/dL (1.6-2.6); Potassium 4.1 mmol/L (3.5-5.1); Protein, Total 3.6 g/dL (6.0-8.3); Sodium 137 mmol/L (136-145)
[2019-06-09 05:55] LABS: Phosphorus 2.7 mg/dL (2.3-4.7)
[2019-06-09] MEDS: Meropenem 500 MG in Sodium Chloride 0.9% 100 ML IVPB SCH ×2 (05:59→17:11)
[2019-06-09] MEDS: metroNIDAZOLE 500 MG in Premix Bag 1 BAG IVPB SCH ×3 (06:00→17:10)
[2019-06-09 06:59] LABS: Actual Bicarbonate (HCO3a) 19.3 mEq/L (22-28); Base Excess (BEa) -4.1 mEq/L (-2.0 to +3.0); CO2 Tension 30.7 mmHg (35.0-45.0); Calcium, Ionized 1.17 mmol/L (1.12-1.30); Carboxyhemoglobin (COHb) 1.5 gm% (0.0-3.0); Hemoglobin (Hb) 13.6 g/dL (12.0-16.0); O2 Tension (PaO2) 121.7 mmHg (> 60.0); Potassium - ABG Lab 4.02 mmol/L (3.70-5.30); pH, Arterial 7.42 (7.35-7.45)
[2019-06-09 07:01] LABS: Puncture Site ALINE
[2019-06-09 07:02] LABS: ALV-art Gradient 125.125 (0-20)
--- NOTE | 2019-06-09 07:34 | PRG ---
DATE OF SERVICE: 06/08/2019 SUBJECTIVE: Blanca Sousa remains intubated on the vent and is not on any sedation. To my surprise, she complains of no pain. OBJECTIVE: VITAL SIGNS: Pulse 72, blood pressure is 116/51, respiratory rate 18. CHEST: No wheezing or crackles. CARDIAC: Normal S1 and S2. No gallops. ABDOMEN: Distended, soft. LABORATORY DATA: White count 41,000, H and H 13 and 41, platelet count is low 40. PO2 is 98, pCO2 30, pH 7.43, rate of 16, 40%, PEEP of 8. Creatinine 1.5. ASSESSMENT AND PLAN: 1. Status post laparoscopy. 2. Respiratory failure. 3. Severe deconditioning. 4. Colitis. 5. Azotemia. Vein being adjusted. Still has significant leukocytosis. Continue micafungin, meropenem renal failure. PLAN: She needs to start nutrition. Hopefully, this will be done in the next 24 to 48 hours. One-half hour of critical time. Job ID: [id number]
--- NOTE | 2019-06-09 07:42 | PDOC.PULCC ---
CCU Progress Note: Subj/Obj - Subjective Date: 06/09/19 Time: 07:39 Subjective: Currently requiring no sedation. She will wake up, but will not follow commmands - Objective Allergies/Adverse Reactions: Allergies Allergy/AdvReac Type Severity Reaction Status Date / Time Penicillins Allergy Severe Anaphylaxis Verified 06/02/19 01:25 Medications: Current Medications Acetaminophen (Tylenol) 650 mg PO Q4H PRN PRN Reason: Headache/Fever/Mild Pain (1-3) Last Admin: 06/03/19 10:14 Dose: 650 mg Dextrose/Water (Dextrose 50%) 25 gm SLOW IVP PRN PRN PRN Reason: Hypoglycemia Famotidine (Pepcid) 20 mg SLOW IVP 0900 VANESA Last Admin: 06/08/19 08:37 Dose: 20 mg Glucagon (Glucagon) 1 mg IM PRN PRN PRN Reason: Hypoglycemia Metronidazole 500 mg/ Device 100 mls @ 100 mls/hr IVPB Q6HR VANESA Last Admin: 06/09/19 06:00 Dose: 100 mls Norepinephrine Bitartrate 8 mg (/ Dextrose/Water) 250 mls @ 0 mls/hr IVPB INF PRN; Protocol PRN Reason: TO MAINTAIN MAP > 65 Last Admin: 06/07/19 23:16 Dose: 250 mls Fentanyl Citrate 2,000 mcg/ (Sodium Chloride) 100 mls @ 0 mls/hr IV INF VANESA; Protocol Stop: 07/05/19 21:04 Fentanyl Citrate (Fentanyl Bolus) 250 mls @ 0 mls/hr IVPB PRN PRN PRN Reason: Breakthrough pain/agitation Stop: 07/05/19 21:04 Dextrose/Water (D5w) 1,000 mls @ 0 mls/hr IV .Q0M PRN PRN Reason: Hypoglycemia Meropenem 500 mg/ Sodium (Chloride) 100 mls @ 200 mls/hr IVPB 0600,1800 VANESA Last Admin: 06/09/19 05:59 Dose: 100 mls Lactated Ringer's (Lactated Ringer's) 1,000 mls @ 125 mls/hr IV .Q8H VANESA Last Admin: 06/09/19 05:25 Dose: 1,000 mls Magnesium Sulfate 1 gm/ Sodium (Chloride) 102 mls @ 102 mls/hr IV PRN PRN PRN Reason: MAG LEVEL 1.4 - 2.0 Magnesium Sulfate 2 gm/ Device 50 mls @ 50 mls/hr IVPB ASDIR PRN PRN Reason: MAGNESIUM < 1.4 Micafungin Sodium 50 mg/ (Sodium Chloride) 100 mls @ 100 mls/hr IVPB Q24H [facility] Last Admin: 06/08/19 08:39 Dose: 100 mls Insulin Glargine 12 units/ (Miscellaneous Medication) 0.12 mls @ 0 mls/hr SC DAILY [facility] Last Admin: 06/08/19 08:37 Dose: 0.12 mls Insulin Human Lispro (Humalog) 0 units SC .MILD SLIDING SCALE PRN PRN Reason: Mild Correctional Scale Last Admin: 06/09/19 05:08 Dose: 2 unit Insulin Human Lispro (Humalog) 0 units SC .BEDTIME SLIDING SC PRN PRN Reason: Bedtime Correctional Scale Lorazepam (Ativan) 0.5 mg SLOW IVP Q6H PRN PRN Reason: Anxiety/Agitation Lorazepam (Ativan) 2 mg SLOW IVP Q1H PRN PRN Reason: Breakthrough agitation Stop: 07/05/19 21:04 Magnesium Oxide (Magnesium Oxide) 400 mg PO BIDPRN PRN PRN Reason: FOR SERUM MAG 1.4 - 2.0 Magnesium Oxide (Magnesium Oxide) 800 mg PO PRN PRN PRN Reason: FOR SERUM MAG < 1.4 Miscellaneous Medication (Phos-Nak) 1 pkt PO TIDPRN PRN PRN Reason: FOR PHOS LEVEL 1.0 - 1.8 Last Admin: 06/07/19 05:30 Dose: 1 pkt Miscellaneous Medication (Phos-Nak) 2 pkt PO TIDPRN PRN PRN Reason: FOR PHOS LEVEL 0.5 - 1.0 Morphine Sulfate (Morphine) 2 mg SLOW IVP Q1H PRN PRN Reason: BREAKTHROUGH PAIN/Agitation Stop: 07/05/19 21:04 Last Admin: 06/09/19 00:00 Dose: 2 mg Nitroglycerin (Nitrostat) 0.4 mg SL Q5M PRN PRN Reason: Chest Pain Ccu Electrolyte (Replacement Protocol) 0 each FS PRN PRN PRN Reason: FOR ELECTROLYTE REPLACEMENT Ondansetron HCl (Zofran Odt) 4 mg PO Q6H PRN PRN Reason: Nausea/Vomiting Propofol (Diprivan) 1,000 mg IV INF PRN; Protocol PRN Reason: TO ACHIEVE GOAL RASS Stop: 07/05/19 21:04 Propofol (Diprivan Bolus) 20 mg IV Q5MIN PRN PRN Reason: BREAKTHROUGH AGITATION Stop: 07/05/19 21:04 Sodium Chloride (Flush - Normal Saline) 10 ml IVF Q12HR PRN PRN Reason: Saline Flush Sodium Chloride (Flush - Normal Saline) 10 ml IVF PRN PRN PRN Reason: Saline Flush Sodium Chloride (Normal Saline Pf) 10 ml FS PRN PRN PRN Reason: RECONSTITUTION OCT Reviewed: Yes Vital Signs and I&O: Vital Signs Temp 97.2 F L 06/09/19 04:00 Pulse 73 06/09/19 06:50 Resp 17 06/09/19 06:00 BP 117/50 L 06/09/19 06:50 Pulse Ox 100 06/08/19 20:00 Intake & Output 06/08/19 06/09/19 06/09/19 18:59 06:59 18:59 Intake Total 486 3227 Output Total 1606 1625 Balance -1120 1602 Weight 150 lb 5.684 oz Intake: Intake, IV Amount 486 2507 Lactated Ringer's 1,000 2407 ml @ 125 mls/hr IV .Q8H [facility]ANESA Rx#:[id number] Meropenem 500 mg In 100 Sodium Chloride 0.9% 100 ml @ 200 mls/hr IVPB 0600 ,1800 VANESA Rx#:[id number] Micafungin 50 mg In 100 Sodium Chloride 0.9% 100 ml @ 100 mls/hr IVPB Q24H [facility]AN[facility]A Rx#:[id number] Norepinephrine 8 mg In 86 Dextrose 5% in Water 242 ml @ As Directed IVPB INF PRN Rx#:[id number] metroNIDAZOLE 500 mg In 200 100 Premix Bag 1 bag @ 100 mls/hr IVPB Q6HR VANESA Rx#: [id number] Oral Supplement 180 Tube Feeding 360 Tube Irrigant 180 Output: Gastric Drainage 100 Drainage 630 810 06/05 LUQ AWILDA DRAIN 630 810 Ostomy Output 565 500 Ileostomy 565 500 Output, Leslie 311 315 Other: Voiding Method Indwelling Catheter Indwelling Catheter Vent Setting: SIMV 12/500/5/10/40% Spontaneous Breathing Test: done (Passed all components except for mental status and peripheral muscle weakness) Lines (incl Aterial, CVC, PICC+Insertion date): Has a Right groin triple lumen. Her arterial line was pulled from L wrist today CCU Progress Note: Exam - Physical Exam Constitutional: NAD HEENT: PERRLA Deviation from normal: Dry OMM Neck: no nodes, no JVD, supple Deviation from normal: paced rhythm Respiratory: clear to auscultation anteriorly Gastrointestinal: soft, non-tender Deviation from normal: ileostomy pink and producing stool Musculoskeletal: edema present Deviation from normal: not moving arms, does move legs, won't follow commands, not on sedation Lymphatic: no nodes Skin: no rash CCU Progress Note: Data - Labs Result Diagrams: 06/09/19 04:50 06/09/19 04:50 - ABG Interpretation Attestation: I reviewed and interpreted this ABG. ABG Results: ABG pH 7.42 (7.35-7.45) 06/09/19 06:50 ABG pCO2 30.7 mmHg (35.0-45.0) L 06/09/19 06:50 ABG O2 Sat Calc/Vazquez 98.6 % (94.0-98.0) H 06/09/19 06:50 ABG Base Excess -4.1 mEq/L (-2.0 to +3.0) L 06/09/19 06:50 Interpretation: normal - Radiology Interpretation Chest x-ray Status: image reviewed by me Additional comments: bilateral layering effusions, ETT OK CCU Progress Note: A/P - Time Spent with Patient Time (minutes): 30 (cc time) - Plan Plan: Acute Respiratory Failure requiring mechanical ventilation s/p colectomy for c.dif colitis elevated WBC - improved Myopathy / weakness due to critical illness The patient was tried on pressure support ventilation and did well for a brief time. However, her neuromuscular weakness would make extubation very risky at this time. Continue antibiotics and antifungals Initiate PT for ROM exercises. Up in a neuro chair on vent.
--- NOTE | 2019-06-09 09:06 | RAD ---
FRONTAL RADIOGRAPH CHEST: Date: 06/09/19 COMPARISON: 06/08/19. HISTORY: Pneumonia. FINDINGS: Stable endotracheal tube, nasogastric tube, and multilead AICD. Nonspecific bibasilar pleural and par enchymal opacity noted, unchanged when compared to the prior exam. Stable perihilar interstitial prom inence and pulmonary vascular congestion. IMPRESSION: Stable appearance of the chest as described above. POS: [facility]
--- NOTE | 2019-06-09 10:21 | PRG ---
DATE OF SERVICE: 06/09/2019 SUBJECTIVE: Ms. Sousa is postoperative day #4 from a subtotal colectomy with ileostomy creation. Pathology from that surgery is still pending. She remains in the Intensive Care Unit on the ventilator. Over the weekend, she has made substantial progress. All of her pressors have been discontinued and she is maintaining a normal blood pressure without the pressor medication. Her ventilator support has been diminished substantially. Dr. Lin/Pulmonary Medicine is continuing to wean her from the ventilator. Her ileostomy has begun functioning and she is now on tube feeds, which she seems to be tolerating nicely. Her dramatic leukocytosis (high white blood cell count of 54 on June 07) has begun to resolve appropriately with a white blood cell count of 18.4 today. Her renal insufficiency (creatinine as high as 2.75) has essentially resolved with a creatinine this morning of 1.18. She is requiring no sedation and only minimal pain medication. She has fairly dramatic output from her Gonzalez-Juan drain within her abdomen. It appears to be clear light serosanguineous fluid, but has drained about 1400 mL yesterday and 1600 the day before that. I suspect that this is largely third space fluid loss related to hypoalbuminemia. PHYSICAL EXAMINATION: VITAL SIGNS: She is afebrile. Pulse is 76, blood pressure 117/57. GENERAL: She is resting on the ventilator, alert. She apparently follows some, but not all commands. HEAD, EYES, EARS, NOSE, AND THROAT: Unremarkable. NECK: Supple. LUNGS: Clear to auscultation anteriorly. CARDIAC: Regular rate and rhythm. ABDOMEN: Nondistended. Bowel sounds are present, but hypoactive. Ostomy is viable and functioning. Midline incision is healing nicely. EXTREMITIES: She has substantial edema of the left upper extremity of uncertain etiology. X-RAY: Chest x-ray reveals bibasilar congestion, not certain if this is atelectasis or fluid. LABORATORY DATA: As mentioned, her metabolic panel is essentially unremarkable. Her CO2 level is stable at 22. Her albumin is quite low at 1.9. ASSESSMENT: She continues to make good progress. We will continue to advance her tube feeds as she tolerates. I will start loperamide to diminish ileostomy output. Ventilator will be weaned per Pulmonary as appropriate. Continue IV antibiotics and ICU care. Job ID: [id number]
--- NOTE | 2019-06-09 10:29 | ULT ---
Left upper extremity venous Doppler ultrasound: 06/09/2019 COMPARISON: None HISTORY: Left upper extremity edema TECHNIQUE: Multiplanar grayscale sonographic imaging of the left at upper extremity venous structures obtained with color flow and spectral analysis FINDINGS: There is a portion of the left internal jugular vein which appears to contain a small amoun t of echogenic material. In addition, the left internal jugular vein is not completely compressible in this region. This suggests small volume nonocclusive thrombus within the left internal jugular vei n. The left subclavian vein and left axillary vein are patent. The left basilic vein, brachial vein, cephalic vein, radial vein, and ulnar vein are patent. IMPRESSION: Small volume nonocclusive thrombus suspected within the left internal jugular vein.
[2019-06-09] MEDS: Famotidine/PF 20 mg/2ml Vial SLOW IVP SCH (10:42)
[2019-06-09] MEDS: Insulin Glargine 12 UNITS in Pre-Filled Syringe 1 EACH SC SCH (10:44)
--- NOTE | 2019-06-09 10:46 | STRESS ---
Acquisition Time: 2019-06-02 12:22:16 Total Exercise Time: 00:04:00 Test Indications: Syncope Medications: Protocol: ADENOSINE Max HR: 080 BPM 59% of Pred: 135 BPM Max BP: 132/084 mmHG Max Work Load: 1.0 METS RESTING ECG: PACED SYMPTOMS: DYSPNEA ON EXERTION NORMAL BP RESPONSE ECTOPY: RARE PVCs ECG STRESS: NO SIGNIFICANT CHANGES INTERPRETATION: AWAIT NUCLEAR IMAGES FOR DEFINITIVE DIAGNOSIS Confirmed by KAILASH FLORES ([id number]), brands editor DINO OLIVER ([id number]) on 06/09/2019 10:46:23 AM Referred By: DO Jac STEELE Confirmed By:KAILASH FLORES
[2019-06-09 14:39] LABS: Actual Bicarbonate (HCO3a) 17.7 mEq/L (22-28); Analyzer IN Cardio OR; Base Excess (BEa) -7.8 mEq/L (-2.0 to +3.0); CO2 Tension 36.4 mmHg (35.0-45.0); Calcium, Ionized 1.18 mmol/L (1.12-1.30); Hemoglobin (Hb) 14.9 g/dL (12.0-16.0); O2 Tension (PaO2) 107.8 mmHg (> 60.0); Potassium - ABG Lab 4.23 mmol/L (3.70-5.30)
[2019-06-09 14:39] LABS: Analyzer IN Cardio OR; CO2 Tension 46.1 mmHg (35.0-45.0); Calcium, Ionized 1.05 mmol/L (1.12-1.30); Carboxyhemoglobin (COHb) 0.5 gm% (0.0-3.0); Hemoglobin (Hb) 15.6 g/dL (12.0-16.0); O2 Tension (PaO2) 247.7 mmHg (> 60.0); Potassium - ABG Lab 4.72 mmol/L (3.70-5.30)
[2019-06-09 14:42] LABS: pH, Arterial 7.13 (7.35-7.45)
[2019-06-09 14:43] LABS: Puncture Site ALINE
[2019-06-09 14:43] LABS: Puncture Site ALINE
[2019-06-09] MEDS: Morphine 2 MG/ML SYRINGE SLOW IVP PRN ×2 (17:10)
[2019-06-09] MEDS: Loperamide HCl 2 MG CAP PO SCH (20:48)
--- NOTE | 2019-06-09 22:48 | EKG ---
Test Reason : Blood Pressure : / mmHG Vent. Rate : 088 BPM Atrial Rate : 088 BPM P-R Int : 000 ms QRS Dur : 128 ms QT Int : 420 ms P-R-T Axes : 000 037 136 degrees QTc Int : 508 ms Atrial fibrillation ventricular-paced complexes Premature ventricular complexes Abnormal ECG Confirmed by LESLIE MCLEOD M.D. ([id number]) on 06/09/2019 10:48:00 PM Referred By: KHUSHBU Confirmed By:LESLIE MCLEOD M.D.
--- NOTE | 2019-06-09 22:58 | EKG ---
Test Reason : STAT Blood Pressure : / mmHG Vent. Rate : 130 BPM Atrial Rate : 147 BPM P-R Int : 000 ms QRS Dur : 108 ms QT Int : 322 ms P-R-T Axes : 000 -41 176 degrees QTc Int : 473 ms Ventricular-paced rhythm with occasional supraventricular complexes underlying afib Abnormal ECG When compared with ECG of 04-JUN-2019 00:59, (Unconfirmed) No significant change was found Confirmed by LESLIE MCLEOD M.D. ([id number]) on 06/09/2019 10:58:25 PM Referred By: KHUSHBU Confirmed By:LESLIE MCLEOD M.D.
[2019-06-10] MEDS: metroNIDAZOLE 500 MG in Premix Bag 1 BAG IVPB SCH ×2 (01:20→05:28)
[2019-06-10] MEDS: Lactated Ringer's 1,000 ML IV SCH ×2 (01:28→14:39)
[2019-06-10 04:55] LABS: Phosphorus 3.2 mg/dL (2.3-4.7)
[2019-06-10 04:57] LABS: ALT (SGPT) 9 U/L (8-55); AST (SGOT) 15 U/L (5-34); Albumin 1.8 g/dL (3.4-4.8); Alkaline Phosphatase 61 U/L (40-110); Anion Gap 10 mmol/L (10-20); BUN (Urea Nitrogen) 59 mg/dL (9.8-20.1); Bilirubin, Total 0.3 mg/dL (0.2-1.2); Calc. Creatinine Clearance 44 mL/min (70-130); Calcium 7.6 mg/dL (7.8-10.44); Carbon Dioxide 22 mmol/L (23-31); Chloride 113 mmol/L (98-107); Estimated GFR-MDRD 53; Globulin 1.8 g/dL (2.4-3.5); Glucose 147 mg/dL (83-110); Magnesium 2.1 mg/dL (1.6-2.6); Potassium 4.2 mmol/L (3.5-5.1); Protein, Total 3.6 g/dL (6.0-8.3); Sodium 141 mmol/L (136-145)
[2019-06-10 05:09] LABS: Band 2 % (5-11); Hemoglobin 13.5 g/dL (12.0-16.0); Lymphocytes 9 % (21-51); MDiff Complete? YES; Mean Corpuscular HGB CONC 32.4 g/dL (32.0-36.0); Mean Corpuscular Hemoglobin 29.8 pg (27.0-31.0); Mean Corpuscular Volume 91.9 fL (78.0-98.0); Mean Platelet Volume 10.8 fL (7.4-10.4); Metamyelocyte 3 % (0-0); Monocytes 9 % (0-10); Myelocyte 1 % (0-0); Neutrophil 76 % (42-75); Platelet Count 53 thou/uL (130-400); Platelet Morphology Comment Appears Decreased; RBC Distribution Width 14.3 % (11.5-14.5); Red Blood Cell (RBC) Count 4.54 mill/uL (4.20-5.40); White Blood Cell (WBC) Count 14.2 thou/uL (4.8-10.8)
[2019-06-10] MEDS: Meropenem 500 MG in Sodium Chloride 0.9% 100 ML IVPB SCH ×2 (05:28→18:25)
--- NOTE | 2019-06-10 06:35 | PDOC.FM ---
- Subjective Subjective: Patient is up in the neuro chair this morning on exam. AWILDA continues to drain a large amount of serosanguinous fluid. Blood pressure remains stable off pressors. L art line was pulled yesterday. Patient is moved her lower extremities spontaneously this morning, nursing reports she has been moving her L arm as well. L arm continues to remain swollen. - Objective Vital Signs & Weight: Vital Signs (12 hours) Temp Pulse Resp BP 06/10/19 06:00 19 06/10/19 04:00 20 06/10/19 03:52 97.3 F L 06/10/19 03:44 93 06/10/19 02:00 19 06/10/19 00:42 80 128/69 06/10/19 00:00 97.5 F L 24 H 06/09/19 22:00 19 06/09/19 20:00 21 H 06/09/19 19:08 87 06/09/19 19:00 97.5 F L Weight Admit Weight 56.835 kg Weight 67.4 kg Most Recent Monitor Data Heart Rate from ECG 76 NIBP 110/50 NIBP BP-Mean 70 Respiration from ECG 17 SpO2 98 I&O: 06/08/19 06/09/19 06/10/19 06:59 06:59 06:59 Intake Total 4819 3713 3544 Output Total 3376 3231 2964 Balance 1443 482 580 Result Diagrams: 06/10/19 04:17 06/10/19 04:17 Phys Exam - Physical Examination Constitutional: NAD Eyes open this morning, alert HEENT: moist MMs, sclera anicteric Neck: no nodes, supple Respiratory: no wheezing, clear to auscultation bilateral Irregular rhythm 1/6 systolic murmur Gastrointestinal: soft, positive bowel sounds midline incision, ileostomy draining stool, AWILDA drain with serosanguinous fl Musculoskeletal: pulses present no edema BLE. LUE is swollen, no erythema diminished pulses bilat lower extremities Moves lower extremities, moved L arm for nursing Deviation from normal: flat affect Skin: normal turgor, cap refill <2 seconds Dx/Plan (1) Acute respiratory failure with hypoxia Code(s): J96.01 - ACUTE RESPIRATORY FAILURE WITH HYPOXIA Status: Acute (2) C. difficile colitis Code(s): A04.72 - ENTEROCOLITIS D/T CLOSTRIDIUM DIFFICILE, NOT SPCF RECUR Status: Acute (3) Syncope Code(s): R55 - SYNCOPE AND COLLAPSE Status: Acute Qualifiers: Syncope type: unspecified Qualified Code(s): R55 - Syncope and collapse (4) UTI (urinary tract infection) Status: Acute Qualifiers: Urinary tract infection type: acute cystitis Hematuria presence: without hematuria Qualified Code(s): N30.00 - Acute cystitis without hematuria (5) HFrEF (heart failure with reduced ejection fraction) Code(s): I50.20 - UNSPECIFIED SYSTOLIC (CONGESTIVE) HEART FAILURE Status: Chronic Qualifiers: Heart failure chronicity: chronic Qualified Code(s): I50.22 - Chronic systolic (congestive) heart failure (6) Hypertension Code(s): I10 - ESSENTIAL (PRIMARY) HYPERTENSION Status: Chronic Qualifiers: Hypertension type: essential hypertension Qualified Code(s): I10 - Essential (primary) hypertension - Plan Plan: This is an 83 yo female with a pmh of HTN, HLD, Afib, HFrEF, AAA with bypass, depression Acute hypoxic respiratory failure -Requiring vent support, patient is deconditioned with PT/OT following. -Continue to work to wean pt from the vent Sepsis 2/2 C. diff colitis with ileus -POD #5 S/P open colectomy with ileostomy -ostomy draining 660 ml yesterday, general surgery added loperamide -White count continues to improve -Continue IV meropenem, micafungin; stop metronidazole -C dif studies on ileostomy output pending -AWILDA continues to drain large amount of serosanguinous fluid, 1415 ml yesterday. Likely 2/2 hypoalbuminemia Swelling LUE -all anticoagulants held -LUE US showed nonocclusive thrombus in L IJ; hold dvt ppx until platelets >100 -looking through history, only peripheral line mentioned in LUE is L art line which was removed yesterday Acidosis, resolved -Likely 2/2 sepsis Orthostatic hypotension, hx syncope and fall -Original cc -Pt had run of torsades de pointes -Echo Shows EF 40-45% -continuing to monitor mag, pt remains in paced rhythm Klebsiella pneumoniae UTI -On meropenem currently, likely resolved Hyperglycemia -Non-diabetic, requiring insulin -Lantus 12 units sc, with SSI -Goal BS below 180 Severe Thrombocytopenia, likely 2/2 sepsis - Plt donis of 40, improved to 53 - Will restart ppx lovenox once plt >100 VIRIDIANA, improved -GFR 53 this AM -Continue IV hydration LR @ 75 ml/hr HTN -Home meds held HFrEF -AICD in place, shut off by company. Pt is still paced rhythm A-fib -AICD, turned off -Holding Eliquis with recent fall Lung nodule -Outpt pulmonology consult if appropriate Small AAA -CT shows AAA with 3.1cm dilation -Previous surgery for aorto-bifemoral bypass HLD -Hold meds Depression -Hold home meds Severe Physical Deconditioning -PT/OT consulted -Neuro chair -NG placed on feeds, buyers' agent consulted Access: Rt Femoral Central line Dispo: In CCU, continue to wean ventilator. Continue neuro chair/PT for ROM exercises. Continue NG feeds, continue to monitor output. Addendum - Attending - Attending Attestation Date/Time: 06/10/19 0830 I personally evaluated the patient and discussed the management with Dr. Swain I agree with the History, Examination, Assessment and Plan documented above with any addition or exceptions noted below. Waking up and slowly responding. Intermittently followed directions during exam today. Still requiring vent due to severe deconditioning. Increased edema due to poor oncotic forces. Will follow up with nutrition to make sure appropriate protein in feeds. Would benefit from albumin to help with anasarca. BP stable. KVO IVFs. C dif pending on iliostomy. Continue coverage for fungus and enterics. Speak with ID as needed for C dif coverage. Patient continues to be hypothermic. Continue warming. Will have risk for poor healing and infection risk. Ford
[2019-06-10 07:20] LABS: Actual Bicarbonate (HCO3a) 19.4 mEq/L (22-28); Base Excess (BEa) -3.9 mEq/L (-2.0 to +3.0); CO2 Tension 30.8 mmHg (35.0-45.0); Calcium, Ionized 1.23 mmol/L (1.12-1.30); Hemoglobin (Hb) 14.5 g/dL (12.0-16.0); O2 Tension (PaO2) 83.8 mmHg (> 60.0); Potassium - ABG Lab 4.18 mmol/L (3.70-5.30); Puncture Site LR; pH, Arterial 7.42 (7.35-7.45)
--- NOTE | 2019-06-10 07:49 | RAD ---
Portable frontal chest radiograph: 06/10/2019 COMPARISON: 06/09/2019 HISTORY: Pneumonia FINDINGS: Bilateral pleural and parenchymal opacity noted within the lung bases, left greater than ri ght, unchanged. Stable pulmonary vascular congestion. Stable multilead transvenous AICD, endotracheal tube, and nasogastric tube. IMPRESSION: Stable appearance of the chest as detailed above.
[2019-06-10] MEDS: Loperamide HCl 2 MG CAP PO SCH ×2 (08:35→22:00)
[2019-06-10] MEDS: Famotidine/PF 20 mg/2ml Vial SLOW IVP SCH (08:35)
--- NOTE | 2019-06-10 09:51 | PRG ---
DATE OF SERVICE: 06/10/2019 A 35 minutes of critical care time. SUBJECTIVE: The patient remains intubated on mechanical ventilation. She is up in a chair today. She seemed a little more alert than what she has been. OBJECTIVE: VITAL SIGNS: Her temperature is 97.3 with no fever overnight, pulse 85, and blood pressure 123/68. Intake for 24 hours 3544 and output 2964. Weight 148 pounds. HEENT: Unremarkable except for the ET tube in place. NECK: No adenopathy or JVD. LUNGS: Clear anteriorly. CARDIOVASCULAR: S1 and S2. Regular. ABDOMEN: Softer. EXTREMITIES: Edematous throughout. IMAGING DATA: Her chest x-ray demonstrates bilateral layering pleural effusions. ET tube is in satisfactory position. LABORATORY DATA: Sodium 141, potassium 4.2, chloride 113, CO2 of 22, BUN 59, creatinine 1.0, and glucose 147. White blood cell count 14.2, hematocrit 41.7, and platelet count 53. A pH of 7.42, pCO2 of 31, and pO2 of 84 on SIMV rate 6, tidal volume 500, PEEP 5, pressure support 10, and FiO2 of 40%. ASSESSMENT: 1. Acute respiratory failure requiring mechanical ventilation. 2. Severe protein calorie malnutrition. 3. Clostridium difficile colitis, now status post colectomy. 4. Thrombocytopenia. PLAN: 1. We will go ahead and stop the metronidazole. 2. C. diff studies will be repeated. 3. Continue meropenem and micafungin. 4. Unable to wean until she has gained more strength and is able to follow some commands. I spoke with daughter at bedside. Job ID: [id number]
[2019-06-10] MEDS: Insulin Glargine 12 UNITS in Pre-Filled Syringe 1 EACH SC SCH (10:03)
[2019-06-10] MEDS: HumaLOG 300 UNITS/3 ML VIAL SC PRN ×2 (10:23→23:04)
[2019-06-10] MEDS ORDERED: Furosemide 40 MG/4 ML VIAL SLOW IVP SCH (13:30)
[2019-06-10] MEDS: Metoprolol Tartrate 25 MG TAB PO SCH (22:00)
--- NOTE | 2019-06-11 06:49 | PDOC.GSPN ---
Surgery Progress Note: Subj - Subjective Patient reports: no new complaints, pain well controlled Narrative: Pt remains intubated in CCU. Pt was afebrile but had one hypotensive episode of 98/58 at 2am overnight. Pt receives tube feed and had 1000mL serosanguineous output from AWILDA drain and 800mL output from ileostomy, which were thickened by imodium, over the last 24hr. Pt had increased urine output from Leslie of 1829mL over the last 24hr. Pt was seen sitting up in the neuro chair and wiggled her toes in response to command. Surgery Progress Note: Obj - Vital signs Vital signs: Vital Signs - Most Recent Temp Pulse Resp BP Pulse Ox 98.4 F 70 23 H 98/58 L 97 06/11/19 04:00 06/11/19 02:13 06/11/19 06:00 06/11/19 02:13 06/10/19 20:00 - Physical Exam General: no distress, other (Pt occasionally tracks the nurse w/ her eyes) Cardiovascular: regular rate and rhythm Respiratory: clear to auscultation Abdomen: soft, non tender, positive bowel sounds Musculoskeletal: other (2+ bilateral UE edema) Wound: dressing clean,dry,intact, healing well Surgery Progress Note: Results - Labs Result Diagrams: 06/10/19 04:17 06/10/19 04:17 Lab results: Laboratory Results - last 24 hr 06/09/19 06/09/19 06/09/19 10:43 15:37 22:23 POC Glucose 172 H 169 H 151 H 06/10/19 06/10/19 06/10/19 04:06 15:48 22:47 POC Glucose 118 H 140 H 156 H - Radiology Interpretation Chest x-ray Status: image reviewed by ks Surgery Progress Note: A/P - Problem (1) C. difficile colitis Current Visit: Yes Code(s): A04.72 - ENTEROCOLITIS D/T CLOSTRIDIUM DIFFICILE, NOT SPCF RECUR Status: Acute - Plan Plan: Ms. Blanca Sousa is a 83yo CF w/ sig. PMH of HFrEF, HTN. and a. fib. on AICD and pacemaker who originally presented to the ED on 06/01 for syncope and hitting her head. Pt was found to have UTI, acquired c. diff. while hospitalized , and developed septic toxic megacolon, which combined w/ diminishing renal function required exploratory laparotomy w/ subtotal colectomy and ileostomy w/ bilateral salpingectomy on 06/05. Pt is POD6 today and have been continuously improving. Pt's WBC decreased from 18.4H (06/09) to 14.2H (06/10), and bands from 7 (06/09) to 2L (06/10). H&H remained stable at 13.5 and 41.7 respectively. Pt's BUN have been steadily climbing from 59H (06/10) to 60H today while her Cr returned to 0.9 today from 1.18H (06/10). Pt's glucose increased from 147H (06/10) to 173H today. Pt's plt improved from 45L (06/09) to 53L (06/10). Pt's albumin has been steadily dropping from 1.8L (06/10) to 1.7L today, which may indicate intestinal malabsorption and will continue to monitor. Pt's CBC values are pending. Pt tolerated tube feeding well and may advance diet as pt improves. Pt's BP decreased from 128/59L (06/10) to 98/58L this morning at 2am, but has since recovered to 111/59L at 6am and will continue monitoring. Pt was tachypnea at 23H at 6am hasn't complained of pain. Pt's ileostomy output wasn't tested for c. diff. due to lab policy of no re- testing within 30d of a previous (+) result, but will continue current meropenem and micafungin tx regimen.
[2019-06-11 06:56] LABS: ALT (SGPT) 8 U/L (8-55); AST (SGOT) 14 U/L (5-34); Albumin 1.7 g/dL (3.4-4.8); Alkaline Phosphatase 55 U/L (40-110); Anion Gap 9 mmol/L (10-20); BUN (Urea Nitrogen) 60 mg/dL (9.8-20.1); Bilirubin, Total 0.3 mg/dL (0.2-1.2); Calc. Creatinine Clearance 48 mL/min (70-130); Calcium 7.8 mg/dL (7.8-10.44); Carbon Dioxide 20 mmol/L (23-31); Chloride 116 mmol/L (98-107); Estimated GFR-MDRD 60; Globulin 1.8 g/dL (2.4-3.5); Glucose 173 mg/dL (83-110); Magnesium 1.8 mg/dL (1.6-2.6); Potassium 4.2 mmol/L (3.5-5.1); Protein, Total 3.5 g/dL (6.0-8.3); Sodium 141 mmol/L (136-145)
[2019-06-11 07:01] LABS: Actual Bicarbonate (HCO3a) 20.1 mEq/L (22-28); Base Excess (BEa) -2.9 mEq/L (-2.0 to +3.0); CO2 Tension 30.4 mmHg (35.0-45.0); Calcium, Ionized 1.27 mmol/L (1.12-1.30); Carboxyhemoglobin (COHb) 0.6 gm% (0.0-3.0); Hemoglobin (Hb) 14.3 g/dL (12.0-16.0); O2 Tension (PaO2) 76.8 mmHg (> 60.0); Potassium - ABG Lab 4.17 mmol/L (3.70-5.30); pH, Arterial 7.44 (7.35-7.45)
[2019-06-11 07:03] LABS: Phosphorus 3.2 mg/dL (2.3-4.7)
[2019-06-11 07:05] LABS: Puncture Site RR
[2019-06-11] MEDS: Meropenem 500 MG in Sodium Chloride 0.9% 100 ML IVPB SCH ×2 (07:12→17:39)
--- NOTE | 2019-06-11 08:24 | PRG ---
DATE OF SERVICE: 06/11/2019 35 minutes of critical care time. SUBJECTIVE: This patient remains intubated on mechanical ventilation. She is up in a chair. OBJECTIVE: VITAL SIGNS: Temperature is 98.4, pulse 73, and blood pressure 111/59. Intake for 24 hours 3418, output 3629. Weight 145 pounds. HEENT: Unchanged. NECK: No adenopathy or JVD. LUNGS: Diminished breath sounds at the bases. CARDIAC: S1, S2. Regular. ABDOMEN: Soft and nontender. Ileostomy noted. EXTREMITIES: Edematous throughout. NEUROLOGIC: She has almost no strength in her upper extremities. She can hold her arms up. I do see her moving her feet some. LABORATORY DATA: Sodium 141, potassium 4.2, chloride 116, CO2 of 20, BUN 60, creatinine 0.9, and glucose 173. The pH 7.44, pCO2 of 30, pO2 of 76 on SIMV rate of 6, tidal volume 500, PEEP 5, pressure support 10, FiO2 of 40%. White blood cell count 14.2, hematocrit 41.7, and platelet count 53. Her chest x-ray has improved somewhat in terms of edema compared to yesterday. ASSESSMENT: 1. Clostridium difficile colitis, requiring colectomy. 2. Acute respiratory failure, requiring mechanical ventilation. 3. Severe protein-calorie malnutrition with an albumin level now of 1.7. 4. Thrombocytopenia, which is stable. 5. Critical illness myopathy. PLAN: 1. This patient failed a spontaneous breathing trial. Her [id number] volume ratio on minimal pressure support without a backup rate was approximately 124. That is predictive of an inability for the patient to maintain her airway and breathe if she was extubated. 2. We will stop lactated Ringer's and try her on albumin infusions for the next 2 days. 3. Continue antibiotics and antifungals. 4. We will speak with family when they come around. Job ID: [id number]
--- NOTE | 2019-06-11 08:34 | PDOC.FM ---
- Subjective Subjective: Patient remains intubated on ventilator, unable to wean due to deconditioning. She is awake and alert this morning, responsive to commands. She had a blood pressure overnight of 98/58 which has improved to 111/59. BUN continues to increase. She has good urine output 1.2 mg/kg/hr. AWILDA output improved yesterday from 1415 ml to 1000 ml. Ileostomy output yesterday was 800 ml. Family is planning to discuss code status today with palliative care. - Objective Vital Signs & Weight: Vital Signs (12 hours) Temp Pulse Resp BP 06/11/19 06:49 86 111/59 L 06/11/19 06:00 23 H 06/11/19 04:00 98.4 F 19 06/11/19 02:13 70 98/58 L 06/11/19 02:00 18 06/11/19 00:00 99 F 19 06/10/19 22:07 74 128/59 L 06/10/19 22:00 24 H Weight Admit Weight 56.835 kg Weight 66.2 kg Most Recent Monitor Data Heart Rate from ECG 73 NIBP 111/59 NIBP BP-Mean 76 Respiration from ECG 21 SpO2 95 I&O: 06/10/19 06/11/19 06/12/19 06:59 06:59 06:59 Intake Total 3544 3418 Output Total 2964 3629 Balance 580 -211 Result Diagrams: 06/14/19 03:28 06/14/19 03:28 Phys Exam - Physical Examination Constitutional: NAD Awake, alert, responsive to commands HEENT: PERRLA, moist MMs Neck: no nodes, supple Respiratory: no wheezing, clear to auscultation bilateral Cardiovascular: RRR Gastrointestinal: soft, no distention, positive bowel sounds midline incision with eben with small amount of drainage, AWILDA draining serosanguinous fluid, ileostomy bag with stool edema BUE somewhat improved from yesterday, cap refill <2 seconds Diffuse weakness, cannot elevate her arms Psychiatric: normal affect Skin: normal turgor, cap refill <2 seconds Dx/Plan (1) Acute respiratory failure with hypoxia Code(s): J96.01 - ACUTE RESPIRATORY FAILURE WITH HYPOXIA Status: Acute (2) C. difficile colitis Code(s): A04.72 - ENTEROCOLITIS D/T CLOSTRIDIUM DIFFICILE, NOT SPCF RECUR Status: Acute (3) Syncope Code(s): R55 - SYNCOPE AND COLLAPSE Status: Acute Qualifiers: Syncope type: unspecified Qualified Code(s): R55 - Syncope and collapse (4) UTI (urinary tract infection) Status: Acute Qualifiers: Urinary tract infection type: acute cystitis Hematuria presence: without hematuria Qualified Code(s): N30.00 - Acute cystitis without hematuria (5) HFrEF (heart failure with reduced ejection fraction) Code(s): I50.20 - UNSPECIFIED SYSTOLIC (CONGESTIVE) HEART FAILURE Status: Chronic Qualifiers: Heart failure chronicity: chronic Qualified Code(s): I50.22 - Chronic systolic (congestive) heart failure (6) Hypertension Code(s): I10 - ESSENTIAL (PRIMARY) HYPERTENSION Status: Chronic Qualifiers: Hypertension type: essential hypertension Qualified Code(s): I10 - Essential (primary) hypertension (7) S/P colectomy Status: Acute - Plan Plan: This is an 83 yo female with a pmh of HTN, HLD, Afib, HFrEF, AAA with bypass, depression Acute hypoxic respiratory failure -CXR looks improved this AM -Requiring vent support, patient is severely deconditioned with PT/OT following. Failed trial of weaning ventilator today. -Continue to work with PT/OT to regain strength, wean vent as tolerated -Meeting with palliative care today to discuss code status Sepsis 2/2 C. diff colitis with ileus -POD #6 S/P open colectomy with ileostomy -ileostomy drained 800 ml stool which has improved with loperamide -Continue IV meropenem, micafungin -C dif studies unable to be done by lab due to their timeframe requirements -AWILDA drained 1000 ml serosanguinous fluid Severe Physical Deconditioning -PT/OT consulted -Neuro chair -Feeds increased to 30 ml/hr, review appraiser consulted Swelling bilateral upper extremities -Swelling likely 2/2 to hypoalbuminemia -Jared wraps applied -DVT ppx held for thrombocytopenia -LUE US showed nonocclusive thrombus in L IJ; hold dvt ppx until platelets >100 Hypoalbuminemia -Patient has severe deconditioning, muscle wasting -albumin 1.7 today, down from 4.4 about 10 days ago -Switching fluids from LR @ 75 ml/hr to albumin 25 g q6h for the next few days -Increased NG feeds to 30 ml/hr yesterday per dietary recs Orthostatic hypotension, hx syncope and fall -Original cc -Pt had run of torsades de pointes -Echo Shows EF 40-45% -continuing to monitor mag, pt remains in paced rhythm Hyperglycemia -Non-diabetic, requiring insulin -Lantus 12 units sc, with SSI -Goal BS below 180 Severe Thrombocytopenia, likely 2/2 sepsis - Platelets stable at 53 - Will restart ppx lovenox once plt >100 VIRIDIANA, improved -GFR 53 this AM -Changing from LR @ 75 to albumin q6h for the next few days HTN -Home meds held HFrEF -AICD in place, shut off by company. Pt is still paced rhythm A-fib -AICD, turned off -Holding Eliquis with recent fall Lung nodule -Outpt pulmonology consult if appropriate Small AAA -CT shows AAA with 3.1cm dilation -Previous surgery for aorto-bifemoral bypass HLD -Hold meds Depression -Hold home meds Klebsiella pneumoniae UTI -On meropenem currently, likely resolved Acidosis, resolved -Likely 2/2 sepsis Access: Rt Femoral Central line Dispo: In CCU, continue to wean ventilator. Continue neuro chair/PT for ROM exercises. Continue NG feeds, continue to monitor output. Palliative meeting with family today to discuss code status. Addendum - Attending - Attending Attestation Date/Time: 06/14/19 6157 I personally evaluated the patient and discussed the management with Dr. Swain I agree with the History, Examination, Assessment and Plan documented above with any addition or exceptions noted below. HD#10. Patient remains stable. Afebrile. Negative 311 fluid balance. Ostomy output has improved and slowed. Weight remains elevated. Continues to have anasarca on exam. Lungs remain clear due to ventilation. Albumin significantly low. Would give IV Albumin to help mobilize fluid intravascularly in order to assist with diuresis. Would monitor need for daily labs. Will speak with ID about antibiotic coverage. IV metrodiazole has been stopped. Follow up recommendations. Need to consider restarting Dig. Patient at high risk for arrhythmia due to fluid shifts. Can do PO or IV at this time. Will need to monitor level closely. Monitor need for central line. D/c if able to get perpherial. Continues to require Leslie which places patient at risk for infection. Monitor. Consider wick or intermittent cath if patient becomes more responsive. Ford
[2019-06-11] MEDS ORDERED: Digoxin 0.125 MG TAB PO SCH (09:00)
[2019-06-11 09:57] LABS: Anisocytosis SLIGHT = 6-15 cells (100X) (0-5/hpf); Band 2 % (5-11); Eosinophils 4 % (0-10); Hemoglobin 14.8 g/dL (12.0-16.0); Lymphocytes 1 % (21-51); MDiff Complete? YES; Mean Corpuscular HGB CONC 31.8 g/dL (32.0-36.0); Mean Corpuscular Hemoglobin 29.2 pg (27.0-31.0); Mean Platelet Volume 11.1 fL (7.4-10.4); Monocytes 2 % (0-10); Neutrophil 89 % (42-75); Platelet Count 92 thou/uL (130-400); Platelet Morphology Comment Appears Decreased; RBC Distribution Width 15.2 % (11.5-14.5); Reactive Lymphocytes 2 % (0-10); Red Blood Cell (RBC) Count 5.05 mill/uL (4.20-5.40); White Blood Cell (WBC) Count 14.6 thou/uL (4.8-10.8)
[2019-06-11] MEDS: Albumin 25% 25 GM/100 ML BOT IVPB SCH ×3 (10:00→19:48)
[2019-06-11] MEDS: Famotidine/PF 20 mg/2ml Vial SLOW IVP SCH (10:01)
[2019-06-11] MEDS: Loperamide HCl 2 MG CAP PO SCH ×2 (10:01→21:37)
[2019-06-11] MEDS: Metoprolol Tartrate 25 MG TAB PO SCH ×2 (10:01→21:37)
[2019-06-11] MEDS: Digoxin 0.125 MG TAB PO SCH (10:01)
--- NOTE | 2019-06-11 10:03 | RAD ---
CHEST ONE VIEW: INDICATIONS: History of pneumonia. COMPARISON: 06/10/2019 FINDINGS: Left-sided pleural and parenchymal opacity and small right pleural effusion persists. Cardiomegaly is stable. Pulmonary vascular congestion appears mildly improved. AICD is unchanged. ET tube and gastri c catheter are unchanged. No pneumothorax is evident. IMPRESSION: Some improvement in pulmonary vascular congestion seen from the comparison examination. Small bilater al pleural effusions persist. Left basilar opacity remains. No pneumothorax is evident. Chronic obstr uctive pulmonary disease change is stable. POS: OFF
[2019-06-11] MEDS: Insulin Glargine 12 UNITS in Pre-Filled Syringe 1 EACH SC SCH (12:51)
[2019-06-11] MEDS: Vancomycin HCl 25 MG/ML Oral PO SCH ×2 (12:51→17:39)
[2019-06-11] MEDS ORDERED: Furosemide 20 MG/2 ML VIAL SLOW IVP SCH (13:00)
[2019-06-11] MEDS: Furosemide 20 MG/2 ML VIAL SLOW IVP SCH ×2 (14:22→19:48)
--- NOTE | 2019-06-11 14:39 | PDOC.PALPN ---
Palliative Progress Note - Subjective Mechanical ventilation, opens eyes and will nod to simple questions. Remain unable to assess full ROS. - Objective Vital Signs: Vital Signs - Most Recent Temp Pulse Resp BP Pulse Ox 95.8 F L 73 19 106/60 96 06/11/19 07:00 06/11/19 13:10 06/11/19 14:00 06/11/19 13:10 06/11/19 08:00 - Physical Exam Constitutional: confusion Deviation from normal: Physical deconditioning HEENT: moist MMs, sclera anicteric, EOMI Respiratory: clear to auscultation bilateral Deviation from normal: Mechanical ventilation Cardiovascular: RRR, no significant murmur Gastrointestinal: positive bowel sounds Deviation from normal: colostomy functioning, stool in bag. Dressing intact over abdominal wall Deviation from normal: Edema to upper extremities, Deviation from normal: lethargic Deviation from normal: Brusing, fair turgor - Assessment (1) Palliative care encounter Code(s): Z51.5 - ENCOUNTER FOR PALLIATIVE CARE Current Visit: Yes Status: Acute (2) Acute respiratory failure with hypoxia Code(s): J96.01 - ACUTE RESPIRATORY FAILURE WITH HYPOXIA Current Visit: Yes Status: Acute (3) C. difficile colitis Code(s): A04.72 - ENTEROCOLITIS D/T CLOSTRIDIUM DIFFICILE, NOT SPCF RECUR Current Visit: Yes Status: Acute (4) HFrEF (heart failure with reduced ejection fraction) Code(s): I50.20 - UNSPECIFIED SYSTOLIC (CONGESTIVE) HEART FAILURE Current Visit: Yes Status: Chronic Qualifiers: Heart failure chronicity: chronic Qualified Code(s): I50.22 - Chronic systolic (congestive) heart failure - Plan Plan: Continues with physical deconditioning. *Christi Farias RN has visited with family and they have elected to transition patient back to no resuscitative measures if indicated. *Continue to support patient and family as they hope patient improves with strength from PT and is able to be transitioned from mechanical ventilation [30] minutes spent on this encounter with >50% of the time in counseling and coordination of care.
[2019-06-11] MEDS ORDERED: Labetalol HCl 100 MG/20 ML VIAL ONE (17:34)
[2019-06-11] MEDS: Lactated Ringer's 1,000 ML IV SCH (18:52)
[2019-06-11] MEDS: Atorvastatin Calcium 20 MG TAB PO SCH (21:37)
[2019-06-12] MEDS: Vancomycin HCl 25 MG/ML Oral PO SCH ×4 (00:11→18:41)
[2019-06-12] MEDS: Albumin 25% 25 GM/100 ML BOT IVPB SCH ×2 (02:13→09:05)
[2019-06-12] MEDS: Furosemide 20 MG/2 ML VIAL SLOW IVP SCH ×3 (02:13→15:40)
[2019-06-12 04:43] LABS: Band 7 % (5-11); Eosinophils 2 % (0-10); Hemoglobin 11.2 g/dL (12.0-16.0); Lymphocytes 6 % (21-51); MDiff Complete? YES; Mean Corpuscular Hemoglobin 30.3 pg (27.0-31.0); Mean Corpuscular Volume 91.8 fL (78.0-98.0); Mean Platelet Volume 10.3 fL (7.4-10.4); Metamyelocyte 1 % (0-0); Monocytes 8 % (0-10); Neutrophil 76 % (42-75); Platelet Count 89 thou/uL (130-400); Platelet Morphology Comment Appears Decreased; RBC Distribution Width 15.2 % (11.5-14.5); Red Blood Cell (RBC) Count 3.71 mill/uL (4.20-5.40); White Blood Cell (WBC) Count 8.4 thou/uL (4.8-10.8)
[2019-06-12 04:44] LABS: Phosphorus 2.9 mg/dL (2.3-4.7)
[2019-06-12 04:52] LABS: ALT (SGPT) 7 U/L (8-55); AST (SGOT) 12 U/L (5-34); Albumin 3.4 g/dL (3.4-4.8); Alkaline Phosphatase 40 U/L (40-110); Anion Gap 12 mmol/L (10-20); BUN (Urea Nitrogen) 55 mg/dL (9.8-20.1); Bilirubin, Total 0.4 mg/dL (0.2-1.2); Calc. Creatinine Clearance 49 mL/min (70-130); Calcium 8.8 mg/dL (7.8-10.44); Carbon Dioxide 25 mmol/L (23-31); Chloride 112 mmol/L (98-107); Estimated GFR-MDRD 62; Globulin 1.4 g/dL (2.4-3.5); Glucose 141 mg/dL (83-110); Magnesium 1.6 mg/dL (1.6-2.6); Potassium 3.5 mmol/L (3.5-5.1); Protein, Total 4.8 g/dL (6.0-8.3); Sodium 145 mmol/L (136-145)
[2019-06-12] MEDS: Meropenem 500 MG in Sodium Chloride 0.9% 100 ML IVPB SCH ×2 (05:59→17:13)
[2019-06-12 07:05] LABS: Actual Bicarbonate (HCO3a) 24.5 mEq/L (22-28); Base Excess (BEa) 1.2 mEq/L (-2.0 to +3.0); CO2 Tension 34.4 mmHg (35.0-45.0); Calcium, Ionized 1.23 mmol/L (1.12-1.30); Carboxyhemoglobin (COHb) 1.2 gm% (0.0-3.0); Hemoglobin (Hb) 11.8 g/dL (12.0-16.0); O2 Tension (PaO2) 74.4 mmHg (> 60.0); Potassium - ABG Lab 3.29 mmol/L (3.70-5.30); pH, Arterial 7.47 (7.35-7.45)
--- NOTE | 2019-06-12 07:13 | PDOC.FM ---
- Subjective Subjective: Pt alert and awake this AM on ventilator. Afebrile overnight. Was up in neuro chair yesterday. She is able to squeeze both hands and move her toes on command and nod yes/no to questioning. Pt was transitioned back to DNAR yesterday after family consulted with palliative care. - Objective Vital Signs & Weight: Vital Signs (12 hours) Temp Pulse Resp BP Pulse Ox 06/12/19 06:00 21 H 06/12/19 04:00 18 06/12/19 03:54 98.7 F 06/12/19 02:24 71 94/50 L 06/12/19 02:00 22 H 06/12/19 00:00 20 06/11/19 22:13 70 108/53 L 06/11/19 22:00 17 06/11/19 20:00 18 99 06/11/19 19:55 97.7 F Weight Admit Weight 56.835 kg Weight 64.2 kg Most Recent Monitor Data Heart Rate from ECG 73 NIBP 118/51 NIBP BP-Mean 73 Respiration from ECG 18 SpO2 94 I&O: 06/11/19 06/12/19 06/13/19 06:59 06:59 06:59 Intake Total 3418 3239 Output Total 3629 5524 Balance -211 -2285 Result Diagrams: 06/12/19 03:41 06/12/19 03:41 Phys Exam - Physical Examination Constitutional: NAD HEENT: PERRLA Neck: no nodes, supple Respiratory: no wheezing, clear to auscultation bilateral Cardiovascular: RRR, no significant murmur Gastrointestinal: soft, no distention, positive bowel sounds Musculoskeletal: no edema, pulses present Neurological: non-focal, moves all 4 limbs Psychiatric: normal affect Skin: no rash, normal turgor, cap refill <2 seconds Dx/Plan (1) Acute respiratory failure with hypoxia Code(s): J96.01 - ACUTE RESPIRATORY FAILURE WITH HYPOXIA Status: Acute (2) C. difficile colitis Code(s): A04.72 - ENTEROCOLITIS D/T CLOSTRIDIUM DIFFICILE, NOT SPCF RECUR Status: Acute (3) Syncope Code(s): R55 - SYNCOPE AND COLLAPSE Status: Acute Qualifiers: Syncope type: unspecified Qualified Code(s): R55 - Syncope and collapse (4) UTI (urinary tract infection) Status: Acute Qualifiers: Urinary tract infection type: acute cystitis Hematuria presence: without hematuria Qualified Code(s): N30.00 - Acute cystitis without hematuria (5) HFrEF (heart failure with reduced ejection fraction) Code(s): I50.20 - UNSPECIFIED SYSTOLIC (CONGESTIVE) HEART FAILURE Status: Chronic Qualifiers: Heart failure chronicity: chronic Qualified Code(s): I50.22 - Chronic systolic (congestive) heart failure (6) Hypertension Code(s): I10 - ESSENTIAL (PRIMARY) HYPERTENSION Status: Chronic Qualifiers: Hypertension type: essential hypertension Qualified Code(s): I10 - Essential (primary) hypertension (7) S/P colectomy Status: Acute - Plan Plan: Acute hypoxic respiratory failure -Requiring vent support, patient is severely deconditioned with PT/OT following. -Continue to work with PT/OT to regain strength, wean vent as tolerated Sepsis 2/2 C. diff colitis with ileus -POD #6 S/P open colectomy with ileostomy -ileostomy drained 875 ml yesterday -On IV meropenem, micafungin, PO vancomycin; consider stopping micafungin -AWILDA drained 1070 ml serosanguinous fluid Severe Physical Deconditioning, improving -PT/OT consulted -Neuro chair Swelling bilateral upper extremities, improved -Swelling likely 2/2 to hypoalbuminemia -Jared wraps applied -DVT ppx held for thrombocytopenia -LUE US showed nonocclusive thrombus in L IJ; hold dvt ppx until platelets >100 Hypoalbuminemia, improved -Patient has severe deconditioning, muscle wasting -albumin increased to 3.4 today with IV albumin -continue albumin 25 g q6h for today -NG feeds @ 30 ml/hr, dietary following Orthostatic hypotension, hx syncope and fall -Original cc -Pt had run of torsades de pointes -Echo Shows EF 40-45% -continuing to monitor mag, pt remains in paced rhythm Hyperglycemia -Non-diabetic, requiring insulin -Lantus 12 units sc, with SSI -Goal BS below 180 Severe Thrombocytopenia, likely 2/2 sepsis, stable - Platelets stable - Will restart ppx lovenox once plt >100 VIRIDIANA, improved HTN -Home meds held HFrEF -AICD in place, shut off by company. Pt is still paced rhythm A-fib -AICD, turned off -Holding Eliquis with recent fall Lung nodule -Outpt pulmonology consult if appropriate Small AAA -CT shows AAA with 3.1cm dilation -Previous surgery for aorto-bifemoral bypass HLD -Hold meds Depression -Hold home meds Klebsiella pneumoniae UTI -On meropenem currently, likely resolved Acidosis, resolved -Likely 2/2 sepsis Access: Rt Femoral Central line Code status: DNAR Dispo: In CCU, continue to wean ventilator as tolerated. Continue neuro chair/ PT for ROM exercises. Addendum - Attending - Attending Attestation Date/Time: 06/12/19 2584 I personally evaluated the patient and discussed the management with Dr. Swain I agree with the History, Examination, Assessment and Plan documented above with any addition or exceptions noted below. Patient continues to show improvement every day. Up in chart. On CPAP through ET tube. Discussed C. dif severity with ID. Agreed to continue PO Vanc. Will continue to monitor closely. Patient does not wish to place trach. Would like to continue vent with ET at this time. Ford
[2019-06-12 07:19] LABS: Puncture Site RRA
[2019-06-12] MEDS ORDERED: Albumin 25% 100 ML ONE (08:46)
[2019-06-12] MEDS: Digoxin 0.125 MG TAB PO SCH (09:01)
[2019-06-12] MEDS: Famotidine/PF 20 mg/2ml Vial SLOW IVP SCH (09:02)
[2019-06-12] MEDS: Loperamide HCl 2 MG CAP PO SCH ×2 (09:02→20:35)
[2019-06-12] MEDS: Metoprolol Tartrate 25 MG TAB PO SCH ×2 (09:02→20:35)
[2019-06-12] MEDS: Insulin Glargine 12 UNITS in Pre-Filled Syringe 1 EACH SC SCH (09:03)
--- NOTE | 2019-06-12 09:32 | RAD ---
CHEST 1 VIEW: Date: 06/12/19 COMPARISON: 08/11/19. HISTORY: Pneumonia. FINDINGS: Redemonstration of endotracheal tube, nasogastric tube, and a left-sided defibrillator. Atherosclerosis. Stable cardiomegaly. Redemonstration of bilateral pleural effusions. Worsening interstitial and alveolar opacities. Lungs are hyperinflated. No pneumothorax. IMPRESSION: 1. Worsening interstitial and alveolar opacities. Continued surveillance is recommended. 2. Atherosclerosis. 3. Redemonstration of bilateral pleural effusions. POS: [facility]
--- NOTE | 2019-06-12 09:44 | PRG ---
DATE OF SERVICE: 06/12/2019 TIME SPENT: 35 minutes critical time. SUBJECTIVE: The patient remains intubated on mechanical ventilation. Once again, she is up in a chair. OBJECTIVE: VITAL SIGNS: Temperature 98.7, pulse 73, blood pressure 118/51, O2 saturation 94%. Intake for 24 hours 3239, output 5524. HEENT: Unremarkable. NECK: No adenopathy or JVD. LUNGS: Coarse breath sounds. CARDIAC: S1, S2. Regular. ABDOMEN: Soft. EXTREMITIES: Some edema. LABORATORY DATA: Sodium 145, potassium 3.5, chloride 112, CO2 of 25, BUN 55, creatinine 0.8, glucose 141, albumin is 3.4. pH of 7.47, pCO2 of 34, pO2 of 74. White blood cell count 8.4, hematocrit 34.1, and platelet count is 89, . IMAGING: Chest x-ray continues to show bilateral infiltrative changes. ASSESSMENT: 1. Acute respiratory failure requiring mechanical ventilation. 2. Protein-calorie malnutrition. 3. Clostridium difficile colitis requiring colectomy. 4. Thrombocytopenia. 5. Critical illness myopathy. PLAN: 1. We will trial on spontaneous breathing and see how long she lasts today. She is actually diuresing fairly well after being given the albumin and diuretics. This has been accomplished without compromising her renal function. 2. Continue physical therapy. Job ID: [id number]
[2019-06-12] MEDS: Morphine 2 MG/ML SYRINGE SLOW IVP PRN (12:17)
[2019-06-12] MEDS: HumaLOG 300 UNITS/3 ML VIAL SC PRN (17:14)
[2019-06-12] MEDS: Atorvastatin Calcium 20 MG TAB PO SCH (20:35)
[2019-06-13] MEDS: Vancomycin HCl 25 MG/ML Oral PO SCH ×5 (00:08→23:14)
[2019-06-13 05:01] LABS: #Eosinphils 0.1 thou/uL (0.0-0.7); #Lymphocytes 0.6 thou/uL (1.20-3.40); #Monocytes 0.8 thou/uL (0.11-0.59); #Neutrophils 10.5 thou/uL (1.40-6.50); %Eosinophils 0.7 % (0.0-10.0); %Lymphocytes 4.8 % (21.0-51.0); %Monocytes 6.3 % (0.0-10.0); %Neutrophils 88.3 % (42.0-75.0); Hemoglobin 12.1 g/dL (12.0-16.0); Mean Corpuscular HGB CONC 32.6 g/dL (32.0-36.0); Mean Corpuscular Volume 92.2 fL (78.0-98.0); Mean Platelet Volume 10.3 fL (7.4-10.4); Platelet Count 140 thou/uL (130-400); RBC Distribution Width 15.4 % (11.5-14.5); Red Blood Cell (RBC) Count 4.04 mill/uL (4.20-5.40); White Blood Cell (WBC) Count 11.9 thou/uL (4.8-10.8)
[2019-06-13 05:18] LABS: Phosphorus 2.5 mg/dL (2.3-4.7)
[2019-06-13 05:22] LABS: ALT (SGPT) Less than 7 U/L (8-55); AST (SGOT) 13 U/L (5-34); Albumin 3.2 g/dL (3.4-4.8); Alkaline Phosphatase 51 U/L (40-110); Anion Gap 10 mmol/L (10-20); BUN (Urea Nitrogen) 43 mg/dL (9.8-20.1); Bilirubin, Total 0.6 mg/dL (0.2-1.2); Calc. Creatinine Clearance 55 mL/min (70-130); Carbon Dioxide 26 mmol/L (23-31); Chloride 111 mmol/L (98-107); Estimated GFR-MDRD 73; Globulin 1.7 g/dL (2.4-3.5); Glucose 141 mg/dL (83-110); Magnesium 1.5 mg/dL (1.6-2.6); Potassium 3.9 mmol/L (3.5-5.1); Protein, Total 4.9 g/dL (6.0-8.3); Sodium 143 mmol/L (136-145)
[2019-06-13] MEDS: Meropenem 500 MG in Sodium Chloride 0.9% 100 ML IVPB SCH ×2 (05:29→18:50)
--- NOTE | 2019-06-13 06:06 | PDOC.FM ---
- Subjective Subjective: Pt had max temperature of 100 F overnight. She tolerated CPAP for 3 hours yesterday. Does not follow commands this AM. - Objective Vital Signs & Weight: Vital Signs (12 hours) Temp Resp Pulse Ox 06/13/19 04:00 99.8 F H 13 06/13/19 02:00 21 H 06/13/19 00:00 100 F H 23 H 06/12/19 22:00 20 06/12/19 20:00 99.1 F 19 97 Weight Admit Weight 56.835 kg Weight 63.6 kg Most Recent Monitor Data Heart Rate from ECG 70 NIBP 104/59 NIBP BP-Mean 74 Respiration from ECG 21 SpO2 94 I&O: 06/11/19 06/12/19 06/13/19 06:59 06:59 06:59 Intake Total 3418 3239 1398 Output Total [address] [facility] -135 -2285 -8185 Result Diagrams: 06/15/19 04:34 06/15/19 04:34 Phys Exam - Physical Examination Constitutional: NAD Does not follow commands HEENT: PERRLA, sclera anicteric Neck: no nodes, supple Respiratory: no wheezing, clear to auscultation bilateral Cardiovascular: RRR Gastrointestinal: soft, no distention, positive bowel sounds Pitting edema BUE Does not move any limbs on command this AM Skin: normal turgor, cap refill <2 seconds Dx/Plan (1) Acute respiratory failure with hypoxia Code(s): J96.01 - ACUTE RESPIRATORY FAILURE WITH HYPOXIA Status: Acute (2) C. difficile colitis Code(s): A04.72 - ENTEROCOLITIS D/T CLOSTRIDIUM DIFFICILE, NOT SPCF RECUR Status: Acute (3) Syncope Code(s): R55 - SYNCOPE AND COLLAPSE Status: Acute Qualifiers: Syncope type: unspecified Qualified Code(s): R55 - Syncope and collapse (4) UTI (urinary tract infection) Status: Acute Qualifiers: Urinary tract infection type: acute cystitis Hematuria presence: without hematuria Qualified Code(s): N30.00 - Acute cystitis without hematuria (5) HFrEF (heart failure with reduced ejection fraction) Code(s): I50.20 - UNSPECIFIED SYSTOLIC (CONGESTIVE) HEART FAILURE Status: Chronic Qualifiers: Heart failure chronicity: chronic Qualified Code(s): I50.22 - Chronic systolic (congestive) heart failure (6) Hypertension Code(s): I10 - ESSENTIAL (PRIMARY) HYPERTENSION Status: Chronic Qualifiers: Hypertension type: essential hypertension Qualified Code(s): I10 - Essential (primary) hypertension (7) S/P colectomy Status: Acute - Plan Plan: Acute hypoxic respiratory failure requiring mechanical ventilation -Requiring vent support. Tolerated CPAP yesterday for 3 hours -Patient is severely deconditioned s/p colectomy, with PT/OT following. -Will need skilled PT s/p discharge Sepsis 2/2 C. diff colitis with ileus, resolved -POD #8 S/P open colectomy with ileostomy and bilateral salpingectomy -T up to 100F overnight, no tylenol. Continue to monitor -On IV meropenem; [id number] days, PO vancomycin x10 days -AWILDA drainage and Ileostomy drainage improving Severe Physical Deconditioning, improving -PT/OT consulted, will need skilled PT at discharge Swelling bilateral upper extremities -Swelling likely 2/2 to hypoalbuminemia -Jared wraps for swelling as needed Hypoalbuminemia, improved -3.2 today, s/p albumin Orthostatic hypotension, hx syncope and fall -Original cc. Pt had run of torsades de pointes -Echo Shows EF 40-45% -Continuing to monitor mag, replaced today, pt remains in paced rhythm -Avoid QT prolonging agents. Stop Citalopram Hyperglycemia, improved -Non-diabetic, requiring insulin -Well controlled on Lantus 12 units sc, with SSI. Goal BS <180 Severe Thrombocytopenia, likely 2/2 sepsis, improved - lovenox was held for platelets <100, - restarted today, as platelets 141 today HFrEF -AICD in place, shut off by company. -paced rhythm A-fib -AICD, turned off -Holding Eliquis with recent fall, on lovenox ppx HTN -Home meds held for hypotension HLD -continue home atorvastatin Depression -stop home citalopram, as QT prolonging agent -Potentially played part in T[place] Klebsiella pneumoniae UTI -On meropenem currently, likely resolved VIRIDIANA, improved Acidosis, resolved -Likely 2/2 sepsis Small AAA -CT shows AAA with 3.1cm dilation -Previous surgery for aorto-bifemoral bypass Lung nodule -Outpt pulmonology consult if appropriate Access: Rt Femoral Central line Code status: DNAR Dispo: In CCU, continue to wean ventilator as tolerated. Continue neuro chair/ PT for building strength. Pt will need skilled PT at discharge, case management consulted for discharge planning. Addendum - Attending - Attending Attestation Date/Time: 06/13/19 0801 I personally evaluated the patient and discussed the management with Dr. Swain I agree with the History, Examination, Assessment and Plan documented above with any addition or exceptions noted below. HD#11 Patient doing well. Remains stable. Still dependant on MV. Declined trach. Pulm following and managing. Following up closely with family. Borderline temp. Risk for central line and gupta. Currently on kaci. Continue to monitor. Will pull central line and culture tip. Continue to monitor closely. Consider trending labs. Consider removing gupta to intermittent cath. Albumin IV as needed to help with anasarca. Will need to continue to discuss plan with family. Need to consider extubation vs trach by Sunday. Ford
[2019-06-13] MEDS ORDERED: PHOS-NAK 1 PKT PACK PO SCH (06:15)
[2019-06-13] MEDS ORDERED: Magnesium 2 GM/50 ML 1 GM in Premix Bag 1 BAG IVPB SCH (06:15)
[2019-06-13 07:02] LABS: Actual Bicarbonate (HCO3a) 25.1 mEq/L (22-28); Base Excess (BEa) 1.8 mEq/L (-2.0 to +3.0); CO2 Tension 35.1 mmHg (35.0-45.0); Calcium, Ionized 1.26 mmol/L (1.12-1.30); Carboxyhemoglobin (COHb) 1.2 gm% (0.0-3.0); Hemoglobin (Hb) 12.3 g/dL (12.0-16.0); O2 Tension (PaO2) 74.8 mmHg (> 60.0); Potassium - ABG Lab 3.97 mmol/L (3.70-5.30); pH, Arterial 7.47 (7.35-7.45)
[2019-06-13 07:04] LABS: Puncture Site RRA
[2019-06-13 07:05] LABS: ALV-art Gradient 95.225 (0-20)
--- NOTE | 2019-06-13 07:52 | RAD ---
Portable frontal chest radiograph: 06/13/2019 COMPARISON: 06/12/2019 HISTORY: Pneumonia FINDINGS: Stable multilead AICD, endotracheal tube, and nasogastric tube. Diffuse increased linear in terstitial density with pulmonary hyperinflation again noted. There is hazy increased density in both lung bases suggesting a combination of nonspecific bibasilar airspace disease and small bilateral pleural effusions, not significantly changed. IMPRESSION: Stable appearance of the chest as detailed above.
--- NOTE | 2019-06-13 08:25 | PRG ---
DATE OF SERVICE: 06/13/2019 TIME SPENT: 35 minutes critical time. SUBJECTIVE: The patient is lying in bed this morning. She is somewhat tachypneic compared to yesterday. I cannot get her to move to command. OBJECTIVE: VITAL SIGNS: Her temperature is 99.8 with a T-max of 100, pulse 69, blood pressure 113/52, O2 saturation 93%. Intake for 24 hours 2585, output 3278. Weight 140 pounds. HEENT: Unremarkable. NECK: No adenopathy, no JVD. LUNGS: Coarse rhonchi. CARDIOVASCULAR: S1, S2. Slightly tachycardic. ABDOMEN: Soft and nontender. Ileostomy site pink. EXTREMITIES: No clubbing or cyanosis. She has generalized edema throughout. LABORATORY DATA: White blood cell count 11.9, hematocrit 37.2, and platelet count 140. PH of 7.47, pCO2 of 35, and pO2 of 74, SIMV rate 6, tidal volume 500, PEEP 5, pressure support 10, FiO2 30%. Sodium 143, potassium 3.9, chloride 111, CO2 of 26, BUN 43, creatinine 0.7, glucose 141, albumin is 3.2. Her chest x-ray shows no significant change. ASSESSMENT: 1. Status post colectomy for Clostridium difficile colitis. 2. Critical illness myopathy. The patient still has profound neuromuscular weakness and would not do well extubated. 3. Acute respiratory failure requiring mechanical ventilation. 4. Protein-calorie malnutrition. 5. Improved thrombocytopenia. PLAN: 1. I have increased her pressure support because her spontaneous tidal volumes were so low today. 2. Continue antibiotics for full 7 days and then stop. Day 7 should be ending today. 3. Scopolamine patch for secretions. 4. Increase pressure support on mechanical ventilation. Job ID: [id number]
[2019-06-13] MEDS ORDERED: Enoxaparin Sodium 40 MG/0.4 ML SYRINGE SC SCH (09:00)
[2019-06-13] MEDS: Digoxin 0.125 MG TAB PO SCH (10:00)
[2019-06-13] MEDS: Metoprolol Tartrate 25 MG TAB PO SCH ×2 (10:00→20:19)
[2019-06-13] MEDS: Scopolamine 1.5 mg/72 hour Patch TD SCH (10:01)
[2019-06-13] MEDS: Enoxaparin Sodium 40 MG/0.4 ML SYRINGE SC SCH (10:01)
[2019-06-13] MEDS: Famotidine/PF 20 mg/2ml Vial SLOW IVP SCH (10:02)
[2019-06-13] MEDS: Loperamide HCl 2 MG CAP PO SCH ×2 (10:03→20:19)
[2019-06-13] MEDS: Insulin Glargine 12 UNITS in Pre-Filled Syringe 1 EACH SC SCH (11:44)
[2019-06-13] MEDS: Atorvastatin Calcium 20 MG TAB PO SCH (20:19)
[2019-06-14 04:09] LABS: #Eosinphils 0.1 thou/uL (0.0-0.7); #Lymphocytes 0.6 thou/uL (1.20-3.40); #Monocytes 0.8 thou/uL (0.11-0.59); #Neutrophils 9.4 thou/uL (1.40-6.50); %Basophils 0.2 % (0.0-1.0); %Eosinophils 0.6 % (0.0-10.0); %Lymphocytes 5.6 % (21.0-51.0); %Monocytes 7.1 % (0.0-10.0); %Neutrophils 86.5 % (42.0-75.0); Hemoglobin 12.1 g/dL (12.0-16.0); Mean Corpuscular HGB CONC 31.8 g/dL (32.0-36.0); Mean Corpuscular Hemoglobin 30.1 pg (27.0-31.0); Mean Corpuscular Volume 94.7 fL (78.0-98.0); Platelet Count 181 thou/uL (130-400); RBC Distribution Width 15.5 % (11.5-14.5); Red Blood Cell (RBC) Count 4.03 mill/uL (4.20-5.40); White Blood Cell (WBC) Count 10.9 thou/uL (4.8-10.8)
[2019-06-14 04:24] LABS: Phosphorus 2.5 mg/dL (2.3-4.7)
[2019-06-14 04:28] LABS: ALT (SGPT) Less than 7 U/L (8-55); AST (SGOT) 12 U/L (5-34); Albumin 2.8 g/dL (3.4-4.8); Alkaline Phosphatase 49 U/L (40-110); Anion Gap 9 mmol/L (10-20); BUN (Urea Nitrogen) 36 mg/dL (9.8-20.1); Bilirubin, Total 0.7 mg/dL (0.2-1.2); Calc. Creatinine Clearance 62 mL/min (70-130); Calcium 8.8 mg/dL (7.8-10.44); Carbon Dioxide 24 mmol/L (23-31); Chloride 115 mmol/L (98-107); Estimated GFR-MDRD 84; Globulin 1.9 g/dL (2.4-3.5); Glucose 143 mg/dL (83-110); Magnesium 1.7 mg/dL (1.6-2.6); Potassium 4.2 mmol/L (3.5-5.1); Protein, Total 4.7 g/dL (6.0-8.3); Sodium 144 mmol/L (136-145)
[2019-06-14] MEDS: Meropenem 500 MG in Sodium Chloride 0.9% 100 ML IVPB SCH ×2 (05:37→18:09)
[2019-06-14] MEDS: Vancomycin HCl 25 MG/ML Oral PO SCH ×4 (05:37→23:54)
--- NOTE | 2019-06-14 06:18 | PDOC.FM ---
- Subjective Subjective: NAEO. Tmax 100.1F overnight. No events per the nurse. No family at the bedside. - Objective MAR Reviewed: Yes Vital Signs & Weight: Vital Signs (12 hours) Temp Resp Pulse Ox 06/14/19 04:00 98.5 F 10 L 06/14/19 02:00 17 06/14/19 00:00 100.1 F H 14 06/13/19 22:00 25 H 06/13/19 20:00 99.1 F 11 L 95 Weight Admit Weight 56.835 kg Weight 63.6 kg Most Recent Monitor Data Heart Rate from ECG 70 NIBP 115/57 NIBP BP-Mean 76 Respiration from ECG 10 SpO2 97 I&O: 06/12/19 06/13/19 06/14/19 06:59 06:59 06:59 Intake Total 3239 2585 1681 Output Total 5524 3278 2242 [facility] -2285 -693 -561 Result Diagrams: 06/14/19 03:28 06/14/19 03:28 Phys Exam - Physical Examination Constitutional: NAD intubated; able to nod yes/open eyes HEENT: moist MMs, sclera anicteric Respiratory: clear to auscultation bilateral Cardiovascular: RRR Gastrointestinal: soft, no distention ostomy Musculoskeletal: pulses present trace edema b/l LE able to open eyes, responsive to sternal rub, nods yes/no Skin: no rash, normal turgor Dx/Plan (1) Acute respiratory failure with hypoxia Code(s): J96.01 - ACUTE RESPIRATORY FAILURE WITH HYPOXIA Status: Acute (2) C. difficile colitis Code(s): A04.72 - ENTEROCOLITIS D/T CLOSTRIDIUM DIFFICILE, NOT SPCF RECUR Status: Acute (3) Palliative care encounter Code(s): Z51.5 - ENCOUNTER FOR PALLIATIVE CARE Status: Acute (4) S/P colectomy Status: Acute (5) Syncope Code(s): R55 - SYNCOPE AND COLLAPSE Status: Acute Qualifiers: Syncope type: unspecified Qualified Code(s): R55 - Syncope and collapse (6) UTI (urinary tract infection) Status: Acute Qualifiers: Urinary tract infection type: acute cystitis Hematuria presence: without hematuria Qualified Code(s): N30.00 - Acute cystitis without hematuria (7) HFrEF (heart failure with reduced ejection fraction) Code(s): I50.20 - UNSPECIFIED SYSTOLIC (CONGESTIVE) HEART FAILURE Status: Chronic Qualifiers: Heart failure chronicity: chronic Qualified Code(s): I50.22 - Chronic systolic (congestive) heart failure (8) Hypertension Code(s): I10 - ESSENTIAL (PRIMARY) HYPERTENSION Status: Chronic Qualifiers: Hypertension type: essential hypertension Qualified Code(s): I10 - Essential (primary) hypertension - Plan Plan: Acute hypoxic respiratory failure requiring mechanical ventilation -Requiring vent support. Tolerated CPAP 06/12 for 3 hours. Increased pressure support 06/13. -Patient is severely deconditioned s/p colectomy, with PT/OT following. -Will need skilled PT s/p discharge Sepsis 2/2 C. diff colitis with ileus, resolved -POD #9 s/p open colectomy with ileostomy and bilateral salpingectomy -Temp up to 100.1F overnight, no tylenol. Continue to monitor -On IV meropenem; [id number] days, PO vancomycin x10 days. Per pulm note, want to stop after 7 days. Will communicate with them for appropriate abx management and plan. -AWILDA drainage and Ileostomy drainage improving Severe Physical Deconditioning, improving -PT/OT consulted, will need skilled PT at discharge Swelling bilateral upper extremities -Swelling likely 2/2 to hypoalbuminemia -Jared wraps for swelling as needed Hypoalbuminemia, improved -s/p albumin; can consider giving additional Orthostatic hypotension, hx syncope and fall -Original cc. Pt had run of torsades de pointes -Echo Shows EF 40-45% -Continuing to monitor mag, pt remains in paced rhythm -Avoid QT prolonging agents. Stop Citalopram. Hyperglycemia, improved -Non-diabetic, requiring insulin -Well controlled on Lantus 12 units sc, with SSI. Goal BS <180 Severe Thrombocytopenia, likely 2/2 sepsis, improved - lovenox was held for platelets <100 - restarted 06/13 HFrEF -AICD in place, shut off by company. -paced rhythm A-fib -AICD, turned off -Holding Eliquis with recent fall, on lovenox ppx HTN -Home meds held for hypotension HLD -continue home atorvastatin Depression -stop home citalopram, as QT prolonging agent -Potentially played part in T[place] Klebsiella pneumoniae UTI -On meropenem currently, likely resolved VIRIDIANA, improved Acidosis, resolved -Likely 2/2 sepsis Small AAA -CT shows AAA with 3.1cm dilation -Previous surgery for aorto-bifemoral bypass Lung nodule -Outpt pulmonology consult if appropriate Access: Rt Femoral Central line Code status: DNAR Dispo: In CCU, continue to wean ventilator as tolerated. Continue neuro chair/ PT for building strength. Pt will need skilled PT at discharge, case management consulted for discharge planning. Case discussed with Dr. Crocker.
--- NOTE | 2019-06-14 08:41 | RAD ---
Portable frontal chest radiograph: 06/14/2019 COMPARISON: 06/13/2019 HISTORY: Pneumonia FINDINGS: Stable endotracheal tube, nasogastric tube, and transvenous AICD. Stable bibasilar pleural and parenchymal opacity with pulmonary vascular congestion and diffuse interstitial prominence. IMPRESSION: Stable appearance of the chest as detailed above.
[2019-06-14] MEDS: Famotidine/PF 20 mg/2ml Vial SLOW IVP SCH (09:56)
[2019-06-14] MEDS: Enoxaparin Sodium 40 MG/0.4 ML SYRINGE SC SCH (09:56)
[2019-06-14] MEDS: Digoxin 0.125 MG TAB PO SCH (09:56)
[2019-06-14] MEDS: Metoprolol Tartrate 25 MG TAB PO SCH ×2 (09:56→20:44)
[2019-06-14] MEDS: Insulin Glargine 12 UNITS in Pre-Filled Syringe 1 EACH SC SCH (09:56)
[2019-06-14] MEDS: Loperamide HCl 2 MG CAP PO SCH ×2 (09:56→20:44)
--- NOTE | 2019-06-14 11:20 | PRG ---
DATE OF SERVICE: 06/14/2019 SUBJECTIVE: Blanca Sousa is intubated. Eyes are open. She is on the ventilator. OBJECTIVE: VITAL SIGNS: Blood pressure 99/48, heart rate 77, temperature 98.4 degrees. She is tolerating her tube feedings. Urine output is acceptable at 952 for 24 hours. Ileostomy healthy. LUNGS: Clear to auscultation. CARDIAC: Regular rate and rhythm. No murmur or gallop. ABDOMEN: Soft, flat, nondistended. Bowel sounds present. LABORATORY DATA: White count 10 and hemoglobin 12. Sodium 144, potassium 4.2, BUN 36, creatinine 0.67. ASSESSMENT AND PLAN: 1. Status post colectomy for the Clostridium difficile colitis, resolving sepsis. Continue tube feedings. Ileostomy is healthy. 2. Respiratory failure, ventilatory reading per Pulmonary. Weaning per Pulmonary. 3. Malnutrition. Continue enteral feedings. 4. Deconditioning. Job ID: [id number]
--- NOTE | 2019-06-14 12:02 | PRG ---
DATE OF SERVICE: 06/14/2019 SUBJECTIVE: Blanca Sousa remains mechanically ventilated. She will awaken. She moves her legs. Her tidal volumes when her pressure support turned down still small. I met with family who is at the bedside. OBJECTIVE: VITAL SIGNS: Stable. Heart rate is 70, blood pressure 114/57, respiratory rate is in the teens, minute volume is about 8 L a minute. LUNGS: Clear anteriorly. HEART: Regular rhythm. S1, S2 are normal. ABDOMEN: Soft and nontender. EXTREMITIES: Without clubbing, cyanosis, or edema. Other than the weakness, she does not have any obvious strength asymmetry. IMAGING STUDIES: Chest radiograph unremarkable. She does have diffuse increased interstitial markings. LABORATORY DATA: White count 10.9, hemoglobin 12.1, platelets 181. Electrolytes are unremarkable. Chloride is high as 115. Albumin is 2.8. 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 She is not weanable. Family does not want a tracheostomy. I explained to family that we will see how she does going into the week. We will start measuring negative inspiratory force in the morning to see if this gives better idea of what her diaphragm strength is. CRITICAL CARE TIME: 30 minutes. Job ID: [id number]
--- NOTE | 2019-06-14 15:04 | PRG ---
DATE OF SERVICE: 06/14/2019 Please see the note from Dr. Mehta for which I agree. The patient was seen, evaluated, discussed and examined with the residents by bedside. The patient remains in the ICU, intubated after Clostridium difficile, toxic megacolon, status post colotomy on 06/05. Unfortunately, just sounds like severe deconditioned lung problems and unable to extubate her. Even sound like, we have to give him more pressure support. I certainly appreciate manager cost involvement in the case and it does sound like we may end up having to consider extubating her next week just to see how she does. The patient is DNR. Otherwise, things are stable as far as vital signs and keeping her oxygen level up as long she is on the ventilator. No other changes otherwise. Getting tube feeds. Job ID: [id number]
[2019-06-14] MEDS: Atorvastatin Calcium 20 MG TAB PO SCH (20:44)
[2019-06-15 04:55] LABS: #Eosinphils 0.1 thou/uL (0.0-0.7); #Lymphocytes 0.7 thou/uL (1.20-3.40); #Monocytes 0.7 thou/uL (0.11-0.59); #Neutrophils 9.7 thou/uL (1.40-6.50); %Basophils 0.3 % (0.0-1.0); %Eosinophils 0.8 % (0.0-10.0); %Lymphocytes 6.2 % (21.0-51.0); %Monocytes 6.5 % (0.0-10.0); %Neutrophils 86.2 % (42.0-75.0); Hemoglobin 11.3 g/dL (12.0-16.0); Mean Corpuscular HGB CONC 30.9 g/dL (32.0-36.0); Mean Corpuscular Hemoglobin 29.1 pg (27.0-31.0); Mean Corpuscular Volume 94.3 fL (78.0-98.0); Mean Platelet Volume 9.7 fL (7.4-10.4); Platelet Count 226 thou/uL (130-400); RBC Distribution Width 15.2 % (11.5-14.5); White Blood Cell (WBC) Count 11.2 thou/uL (4.8-10.8)
[2019-06-15 05:09] LABS: Phosphorus 2.6 mg/dL (2.3-4.7)
[2019-06-15 05:15] LABS: ALT (SGPT) 9 U/L (8-55); AST (SGOT) 17 U/L (5-34); Albumin 2.6 g/dL (3.4-4.8); Alkaline Phosphatase 66 U/L (40-110); Anion Gap 12 mmol/L (10-20); BUN (Urea Nitrogen) 39 mg/dL (9.8-20.1); Bilirubin, Total 0.6 mg/dL (0.2-1.2); Calc. Creatinine Clearance 58 mL/min (70-130); Calcium 9.2 mg/dL (7.8-10.44); Carbon Dioxide 22 mmol/L (23-31); Chloride 114 mmol/L (98-107); Estimated GFR-MDRD 81; Globulin 2.2 g/dL (2.4-3.5); Glucose 179 mg/dL (83-110); Magnesium 1.7 mg/dL (1.6-2.6); Potassium 4.5 mmol/L (3.5-5.1); Protein, Total 4.8 g/dL (6.0-8.3); Sodium 143 mmol/L (136-145)
[2019-06-15] MEDS: Meropenem 500 MG in Sodium Chloride 0.9% 100 ML IVPB SCH ×2 (05:29→18:18)
[2019-06-15] MEDS: Vancomycin HCl 25 MG/ML Oral PO SCH ×4 (05:31→23:50)
--- NOTE | 2019-06-15 06:17 | PDOC.FM ---
- Subjective Subjective: NAEO. Patient is able to open eyes. Moves legs. Answers simple questions. Denies pain. - Objective MAR Reviewed: Yes Vital Signs & Weight: Vital Signs (12 hours) Temp Pulse Resp Pulse Ox 06/15/19 06:00 17 06/15/19 04:00 99.1 F 26 H 06/15/19 02:21 72 06/15/19 02:00 24 H 06/15/19 00:00 99.9 F H 18 06/14/19 22:18 81 06/14/19 22:00 21 H 06/14/19 20:00 12 100 06/14/19 19:00 97.7 F 06/14/19 18:36 76 Weight Admit Weight 56.835 kg Weight 61.1 kg Most Recent Monitor Data Heart Rate from ECG 71 NIBP 125/52 NIBP BP-Mean 76 Respiration from ECG 20 SpO2 100 I&O: 06/13/19 06/14/19 06/15/19 06:59 06:59 06:59 Intake Total 9532 2422 2451 Output Total 7558 1449 2036 Balance -693 -235 415 Result Diagrams: 06/15/19 04:34 06/15/19 04:34 Phys Exam - Physical Examination Constitutional: NAD HEENT: moist MMs, sclera anicteric Neck: supple Respiratory: clear to auscultation bilateral Cardiovascular: RRR Gastrointestinal: soft, no distention, positive bowel sounds Musculoskeletal: pulses present trace edema b/l spontaneous eye movement; no verbal response; moves legs able to follow commands and localize pain Skin: no rash, normal turgor, cap refill <2 seconds Dx/Plan (1) Acute respiratory failure with hypoxia Code(s): J96.01 - ACUTE RESPIRATORY FAILURE WITH HYPOXIA Status: Acute (2) C. difficile colitis Code(s): A04.72 - ENTEROCOLITIS D/T CLOSTRIDIUM DIFFICILE, NOT SPCF RECUR Status: Acute (3) Palliative care encounter Code(s): Z51.5 - ENCOUNTER FOR PALLIATIVE CARE Status: Acute (4) S/P colectomy Status: Acute (5) Syncope Code(s): R55 - SYNCOPE AND COLLAPSE Status: Acute Qualifiers: Syncope type: unspecified Qualified Code(s): R55 - Syncope and collapse (6) UTI (urinary tract infection) Status: Acute Qualifiers: Urinary tract infection type: acute cystitis Hematuria presence: without hematuria Qualified Code(s): N30.00 - Acute cystitis without hematuria (7) HFrEF (heart failure with reduced ejection fraction) Code(s): I50.20 - UNSPECIFIED SYSTOLIC (CONGESTIVE) HEART FAILURE Status: Chronic Qualifiers: Heart failure chronicity: chronic Qualified Code(s): I50.22 - Chronic systolic (congestive) heart failure (8) Hypertension Code(s): I10 - ESSENTIAL (PRIMARY) HYPERTENSION Status: Chronic Qualifiers: Hypertension type: essential hypertension Qualified Code(s): I10 - Essential (primary) hypertension - Plan Plan: Acute hypoxic respiratory failure requiring mechanical ventilation -Requiring vent support. Tolerated CPAP 06/12 for 3 hours. Increased pressure support 06/13. Will check negative insp force for diaphragm strength 06/15. Family does not want tracheostomy. -Patient is severely deconditioned s/p colectomy, with PT/OT following. -Will need skilled PT s/p discharge Sepsis 2/2 C. diff colitis with ileus, resolved -POD #10 s/p open colectomy with ileostomy and bilateral salpingectomy -On IV meropenem; micafungin stopped; continue PO vancomycin x10 days. -AWILDA drainage and Ileostomy drainage improving Severe Physical Deconditioning, improving -PT/OT consulted, will need skilled PT at discharge Swelling bilateral upper extremities -Swelling likely 2/2 to hypoalbuminemia -Jared wraps for swelling as needed Hypoalbuminemia, improved -s/p albumin; can consider giving additional Orthostatic hypotension, hx syncope and fall -Original cc. Pt had run of torsades de pointes -Echo Shows EF 40-45% -Continuing to monitor mag, pt remains in paced rhythm -Avoid QT prolonging agents. Hyperglycemia, improved -Non-diabetic, requiring insulin -Well controlled on Lantus 12 units sc, with SSI. Severe Thrombocytopenia, likely 2/2 sepsis, improved - lovenox was held for platelets <100 - restarted 06/13, plts wnl HFrEF -AICD in place, shut off by company. -paced rhythm A-fib -AICD, turned off -Holding Eliquis with recent fall, on lovenox ppx HTN -Home meds held for hypotension HLD -continue home atorvastatin Depression -stop home citalopram, as QT prolonging agent -Potentially played part in [place] Klebsiella pneumoniae UTI -On meropenem currently, likely resolved VIRIDIANA, improved Acidosis, resolved -Likely 2/2 sepsis Small AAA -CT shows AAA with 3.1cm dilation -Previous surgery for aorto-bifemoral bypass Lung nodule -Outpt pulmonology consult if appropriate Access: Rt Femoral Central line Code status: DNAR Dispo: In CCU, continue to wean ventilator as tolerated. Continue neuro chair/ PT for building strength. Pt will need skilled PT at discharge, case management consulted for discharge planning. Case discussed with Dr. Crocker.
[2019-06-15] MEDS: Digoxin 0.125 MG TAB PO SCH (09:20)
[2019-06-15] MEDS: Loperamide HCl 2 MG CAP PO SCH ×2 (09:20→20:38)
[2019-06-15] MEDS: Metoprolol Tartrate 25 MG TAB PO SCH ×2 (09:20→20:38)
[2019-06-15] MEDS: Insulin Glargine 12 UNITS in Pre-Filled Syringe 1 EACH SC SCH (09:20)
[2019-06-15] MEDS: Famotidine/PF 20 mg/2ml Vial SLOW IVP SCH (09:20)
[2019-06-15] MEDS: Enoxaparin Sodium 40 MG/0.4 ML SYRINGE SC SCH (09:31)
[2019-06-15] MEDS: Morphine 2 MG/ML SYRINGE SLOW IVP PRN ×2 (09:32→20:37)
--- NOTE | 2019-06-15 10:57 | RAD ---
PORTABLE CHEST 1 VIEW: Date: 06/15/19 Time: 0440 hours HISTORY: Respiratory failure, pneumonia. FINDINGS/IMPRESSION: Comparison made with exam from previous day. Allowing for differences in technique, no significant interval changes are seen. POS: [facility]
--- NOTE | 2019-06-15 16:46 | PRG ---
DATE OF SERVICE: 06/15/2019 Please see the note from Dr. Mehta for which I agree. The patient was seen, evaluated, discussed, and examined with the residents by bedside. This is an unfortunate 83-year-old who had toxic megacolon from Clostridium difficile and eventually had a colectomy, but has not recovered respiratory-iyer since then and has been intubated and sounds like were not progressing too quickly if at all getting her extubated and there is some discussion with the family about a trial of extubation this week, understanding that she is do not resuscitate and do not intubate if she were to decompensate, with the family sounds like they understand what that means. We are leaving that up to Pulmonary. Otherwise, really no other major changes in her status. She is still on p.o. vancomycin for another day or two. She is on meropenem and micafungin. Seems like pain control is doing okay. Job ID: [id number]
[2019-06-15] MEDS ORDERED: Propofol 1,000 MG/100 ML VIAL IV ONE (17:01)
--- NOTE | 2019-06-15 17:17 | PRG ---
DATE OF SERVICE: 06/15/2019 SUBJECTIVE: Blanca Sousa, both daughter and granddaughter at the bedside today. Yesterday, only the granddaughter was there in the sitting position. Her best negative inspiratory force this morning when she was supine was negative 8, turning her pressure support from 15 to 10, cut her tidal volumes in half, so I turned her from 15 to 13. OBJECTIVE: VITAL SIGNS: Blood pressure 136/82, heart rate 77, respiratory rate in the high 20s, FiO2 is at 30%. LUNGS: Remarkable for mild rhonchi bilaterally. HEART: Regular rhythm. S1, S2 are normal. ABDOMEN: Soft and distended, this is expected after surgery. DIAGNOSTIC DATA: Chest radiograph is unchanged. IMPRESSION: Critical illness myopathy with diaphragm weakness, explained to family that this will be very likely a slow process. They are not with a tracheostomy at any point. We will continue supportive care in the ICU. There is no blood gas done over several days, so I will order blood gas for tomorrow. Job ID: [id number]
--- NOTE | 2019-06-15 17:23 | PRG ---
DATE OF SERVICE: 06/15/2019 SUBJECTIVE: Blanca Sousa is doing well today. She remains intubated and unable to wean over the weekend. She is tolerating her tube feedings. She is slightly sedated. She is in the ICU. Heart rate 77, blood pressure 136/82. FiO2 of 30%. This morning, her white count is 11, hemoglobin 11. Basic metabolic profile is normal. BUN 39, creatinine 0.6, sodium 143, potassium 4.5. OBJECTIVE: LUNGS: Clear to auscultation. CARDIAC: Regular rate and rhythm without murmur or gallop. ABDOMEN: Soft, flat, nondistended, nontender. Ileostomy output is good. : Urine output is good. ASSESSMENT AND PLAN: Nine days status post laparotomy, colectomy, ileostomy for Clostridium difficile colitis; resolving sepsis; respiratory failure, weaning per Pulmonary. Continue tube feedings. We would plan to remove her eben from her abdomen incision. Family does not want a tracheostomy. Job ID: [id number]
[2019-06-15] MEDS: Atorvastatin Calcium 20 MG TAB PO SCH (20:38)
[2019-06-16 05:11] LABS: #Eosinphils 0.1 thou/uL (0.0-0.7); #Lymphocytes 0.6 thou/uL (1.20-3.40); #Monocytes 0.8 thou/uL (0.11-0.59); #Neutrophils 9.2 thou/uL (1.40-6.50); %Basophils 0.2 % (0.0-1.0); %Lymphocytes 5.7 % (21.0-51.0); %Monocytes 7.1 % (0.0-10.0); Hemoglobin 10.9 g/dL (12.0-16.0); Mean Corpuscular HGB CONC 30.3 g/dL (32.0-36.0); Mean Corpuscular Hemoglobin 28.2 pg (27.0-31.0); Mean Corpuscular Volume 93.3 fL (78.0-98.0); Mean Platelet Volume 9.1 fL (7.4-10.4); Platelet Count 291 thou/uL (130-400); Red Blood Cell (RBC) Count 3.85 mill/uL (4.20-5.40); White Blood Cell (WBC) Count 10.6 thou/uL (4.8-10.8)
[2019-06-16 05:35] LABS: Phosphorus 2.8 mg/dL (2.3-4.7)
[2019-06-16 05:37] LABS: ALT (SGPT) 12 U/L (8-55); AST (SGOT) 16 U/L (5-34); Albumin 2.5 g/dL (3.4-4.8); Alkaline Phosphatase 79 U/L (40-110); Anion Gap 12 mmol/L (10-20); BUN (Urea Nitrogen) 39 mg/dL (9.8-20.1); Bilirubin, Total 0.7 mg/dL (0.2-1.2); Calc. Creatinine Clearance 58 mL/min (70-130); Calcium 8.9 mg/dL (7.8-10.44); Carbon Dioxide 22 mmol/L (23-31); Chloride 114 mmol/L (98-107); Estimated GFR-MDRD 81; Globulin 1.9 g/dL (2.4-3.5); Glucose 152 mg/dL (83-110); Magnesium 1.8 mg/dL (1.6-2.6); Potassium 4.9 mmol/L (3.5-5.1); Protein, Total 4.4 g/dL (6.0-8.3); Sodium 143 mmol/L (136-145)
[2019-06-16] MEDS: Meropenem 500 MG in Sodium Chloride 0.9% 100 ML IVPB SCH (05:38)
[2019-06-16] MEDS: Vancomycin HCl 25 MG/ML Oral PO SCH ×3 (05:38→17:14)
[2019-06-16] MEDS ORDERED: Magnesium 2 GM/50 ML 1 GM in Premix Bag 1 BAG IVPB SCH (06:45)
--- NOTE | 2019-06-16 07:11 | PDOC.FM ---
- Subjective Subjective: Pt sleeping at bedside this AM. Opens eyes to touch. Does not follow commands. She tolerated sitting up well with bed reclined yesterday. - Objective Vital Signs & Weight: Vital Signs (12 hours) Temp Pulse Resp Pulse Ox 06/16/19 06:00 12 06/16/19 04:00 98.7 F 18 06/16/19 02:19 79 06/16/19 02:00 19 06/16/19 00:00 98.5 F 21 H 06/15/19 22:40 72 06/15/19 22:00 18 06/15/19 20:30 96 06/15/19 20:00 99.1 F 14 06/15/19 19:20 114 H Weight Admit Weight 56.835 kg Weight 61.7 kg Most Recent Monitor Data Heart Rate from ECG 98 NIBP 117/49 NIBP BP-Mean 71 Respiration from ECG 56 SpO2 96 I&O: 06/15/19 06/16/19 06/17/19 06:59 06:59 06:59 Intake Total 2551 1706 Output Total 0 5 Balance 515 -389 Result Diagrams: 06/16/19 05:02 06/16/19 05:02 Phys Exam - Physical Examination Constitutional: NAD Respiratory: no wheezing, clear to auscultation bilateral Cardiovascular: RRR 2/6 systolic murmur Gastrointestinal: soft Midline incision with eben removed. No distention. +BS 2+ pitting edema BUE. No swelling BLE. Pulses 2+ in UE and 1+ in LE Does not follow commands this AM Skin: no rash, normal turgor, cap refill <2 seconds Dx/Plan (1) Acute respiratory failure with hypoxia Code(s): J96.01 - ACUTE RESPIRATORY FAILURE WITH HYPOXIA Status: Acute (2) C. difficile colitis Code(s): A04.72 - ENTEROCOLITIS D/T CLOSTRIDIUM DIFFICILE, NOT SPCF RECUR Status: Acute (3) Syncope Code(s): R55 - SYNCOPE AND COLLAPSE Status: Acute Qualifiers: Syncope type: unspecified Qualified Code(s): R55 - Syncope and collapse (4) UTI (urinary tract infection) Status: Acute Qualifiers: Urinary tract infection type: acute cystitis Hematuria presence: without hematuria Qualified Code(s): N30.00 - Acute cystitis without hematuria (5) HFrEF (heart failure with reduced ejection fraction) Code(s): I50.20 - UNSPECIFIED SYSTOLIC (CONGESTIVE) HEART FAILURE Status: Chronic Qualifiers: Heart failure chronicity: chronic Qualified Code(s): I50.22 - Chronic systolic (congestive) heart failure (6) Hypertension Code(s): I10 - ESSENTIAL (PRIMARY) HYPERTENSION Status: Chronic Qualifiers: Hypertension type: essential hypertension Qualified Code(s): I10 - Essential (primary) hypertension (7) S/P colectomy Status: Acute - Plan Plan: Acute hypoxic respiratory failure requiring mechanical ventilation -Requiring vent support. Wean as tolerated. Currently on PIP/PEEP 30/12. NIP of 16 today. -Family does not want tracheostomy. Possible extubation this week has been discussed with family, family/patient's wishes will continue to be discussed. -Patient is severely deconditioned. PT/OT following. Continue neuro chair. Will need skilled PT/OT s/p discharge -Tylenol PRN for pain Sepsis 2/2 C. diff colitis with ileus, resolved -S/p open colectomy with ileostomy and bilateral salpingectomy -Afebrile -IV meropenem (06/06/2019) consider discontinuing today. Continue PO Vancomycin (since 06/11) for 10 days -AWILDA drainage (500 ml) and Ileostomy drainage (475 ml) improving Severe Physical Deconditioning -PT/OT consulted, will need skilled PT at discharge Swelling bilateral upper extremities -Swelling likely 2/2 to hypoalbuminemia -Jared wraps for swelling as needed Hypoalbuminemia, improved -s/p albumin; can consider giving additional Orthostatic hypotension, hx syncope and fall -Original cc. Pt had run of torsades de pointes -Echo Shows EF 40-45% -Continuing to monitor mag, pt remains in paced rhythm -Avoid QT prolonging agents -Mag 1.8 today, will replace Hyperglycemia, improved -Non-diabetic, requiring insulin -Well controlled on Lantus 12 units sc, with SSI. Severe Thrombocytopenia, resolved HFrEF -AICD in place, shut off by company. -paced rhythm A-fib -AICD, turned off -Holding Eliquis with recent fall, on lovenox ppx HTN -Home meds held for hypotension HLD -continue home atorvastatin Depression -stop home citalopram, as QT prolonging agent -Potentially played part in [place] Klebsiella pneumoniae UTI, resolved VIRIDIANA, improved Acidosis, resolved Small AAA -CT shows AAA with 3.1cm dilation -Previous surgery for aorto-bifemoral bypass Lung nodule -Consider Outpt pulmonology consult Access: Rt Femoral Central line Code status: DNAR Dispo: In CCU, continue to wean ventilator as tolerated. Continue neuro chair/ PT for building strength. Pt will need skilled PT at discharge, case management consulted for discharge planning. Palliative following. Case discussed with Dr. Monk Addendum - Attending - Attending Attestation Date/Time: 06/16/19 2432 I personally evaluated the patient and discussed the management with Dr. Swain. I agree with the History, Examination, Assessment and Plan documented above with any addition or exceptions noted below. The patient remains intubated. She does open her eyes but doesn't follow commands. Awaiting family decision on extubation.
[2019-06-16 07:28] LABS: Actual Bicarbonate (HCO3a) 23.2 mEq/L (22-28); Base Excess (BEa) 0.2 mEq/L (-2.0 to +3.0); CO2 Tension 31.8 mmHg (35.0-45.0); Calcium, Ionized 1.31 mmol/L (1.12-1.30); Carboxyhemoglobin (COHb) 1.8 gm% (0.0-3.0); Hemoglobin (Hb) 11.4 g/dL (12.0-16.0); O2 Tension (PaO2) 82.1 mmHg (> 60.0); Potassium - ABG Lab 4.62 mmol/L (3.70-5.30); pH, Arterial 7.48 (7.35-7.45)
[2019-06-16 07:29] LABS: Puncture Site RRA
[2019-06-16] MEDS: Scopolamine 1.5 mg/72 hour Patch TD SCH (09:21)
[2019-06-16] MEDS: Enoxaparin Sodium 40 MG/0.4 ML SYRINGE SC SCH (09:23)
--- NOTE | 2019-06-16 09:23 | PRG ---
DATE OF SERVICE: 06/16/2019 TIME SPENT: 35 minutes of critical care time. SUBJECTIVE: The patient remains intubated on mechanical ventilation. There has been no profound changes over the weekend. OBJECTIVE: VITAL SIGNS: On exam, temperature 100.4, pulse 78, blood pressure 132/69, and O2 saturation 95%. Intake 1706, output 2095. NEUROLOGICAL: She will awaken. I did see her move her feet. She has a miniscule cough reflex. She will move her upper extremities. Her negative inspiratory force has been measured between 3 and 16 over the weekend. HEENT: Unchanged. NECK: No adenopathy or JVD. LUNGS: Clear anteriorly. CARDIAC: S1 and S2. Regular. ABDOMEN: Soft. EXTREMITIES: Edematous. LABORATORY DATA: Sodium 143, potassium 4.9, chloride 114, CO2 of 22, BUN 39, creatinine 0.6, and glucose 152. White blood cell count 10.6, hematocrit 36, and platelet count 291. PH of 7.48, pCO2 of 31, pO2 of 82 on SIMV rate 6, tidal volume 500, PEEP 5, pressure support 13, and FiO2 of 30%. IMAGING DATA: Chest x-ray is unchanged. ASSESSMENT: 1. Acute on chronic respiratory failure, requiring mechanical ventilation. 2. Status post laparotomy for colectomy with subsequent ileostomy. 3. Myopathy of critical illness. PLAN: I think her chances of doing well extubated are fairly close to 0. I have expressed this to the patient's family. I do not know if waiting will help the situation as I am quite pessimistic. Family will discuss further among themselves. Job ID: [id number]
[2019-06-16] MEDS: Famotidine/PF 20 mg/2ml Vial SLOW IVP SCH (09:24)
[2019-06-16] MEDS: Digoxin 0.125 MG TAB PO SCH (09:24)
[2019-06-16] MEDS: Metoprolol Tartrate 25 MG TAB PO SCH ×2 (09:25→20:45)
[2019-06-16] MEDS: Insulin Glargine 12 UNITS in Pre-Filled Syringe 1 EACH SC SCH (09:26)
--- NOTE | 2019-06-16 09:26 | RAD ---
ICU CHEST: INDICATIONS: Pneumonia. COMPARISON: Exam from the previous day. FINDINGS: Supportive lines and tubes remain and are grossly stable. Numerous extrinsic artifacts do limit detai l. Bilateral pleural effusions are present and there is diffuse interstitial prominence of the hyperi nflated lungs. IMPRESSION: Stable chest with bilateral pleural fluid remaining. Continued followup is warranted. POS: [facility]
[2019-06-16] MEDS: Loperamide HCl 2 MG CAP PO SCH ×3 (09:52→20:45)
[2019-06-16] MEDS: Atorvastatin Calcium 20 MG TAB PO SCH (20:45)
[2019-06-17] MEDS: Vancomycin HCl 25 MG/ML Oral PO SCH ×4 (00:36→17:14)
[2019-06-17 04:15] LABS: #Eosinphils 0.1 thou/uL (0.0-0.7); #Lymphocytes 0.9 thou/uL (1.20-3.40); #Monocytes 0.8 thou/uL (0.11-0.59); %Basophils 0.4 % (0.0-1.0); %Eosinophils 0.6 % (0.0-10.0); %Lymphocytes 8.3 % (21.0-51.0); %Monocytes 7.2 % (0.0-10.0); %Neutrophils 83.5 % (42.0-75.0); Mean Corpuscular HGB CONC 31.7 g/dL (32.0-36.0); Mean Corpuscular Hemoglobin 29.8 pg (27.0-31.0); Mean Platelet Volume 9.3 fL (7.4-10.4); Platelet Count 307 thou/uL (130-400); RBC Distribution Width 14.7 % (11.5-14.5); Red Blood Cell (RBC) Count 3.69 mill/uL (4.20-5.40); White Blood Cell (WBC) Count 10.8 thou/uL (4.8-10.8)
[2019-06-17 04:36] LABS: Phosphorus 2.9 mg/dL (2.3-4.7)
[2019-06-17 04:41] LABS: ALT (SGPT) 13 U/L (8-55); AST (SGOT) 17 U/L (5-34); Albumin 2.4 g/dL (3.4-4.8); Alkaline Phosphatase 107 U/L (40-110); Anion Gap 9 mmol/L (10-20); BUN (Urea Nitrogen) 36 mg/dL (9.8-20.1); Bilirubin, Total 0.8 mg/dL (0.2-1.2); Calc. Creatinine Clearance 63 mL/min (70-130); Calcium 9.4 mg/dL (7.8-10.44); Carbon Dioxide 26 mmol/L (23-31); Chloride 113 mmol/L (98-107); Estimated GFR-MDRD 88; Globulin 2.8 g/dL (2.4-3.5); Glucose 140 mg/dL (83-110); Magnesium 1.9 mg/dL (1.6-2.6); Potassium 4.8 mmol/L (3.5-5.1); Protein, Total 5.2 g/dL (6.0-8.3); Sodium 143 mmol/L (136-145)
--- NOTE | 2019-06-17 07:29 | PDOC.FM ---
- Subjective Subjective: Patient has not made progress towards weaning the ventilator. Discussed extubation with family yesterday, they wanted to discuss with their family. Pt had fever yesterday to 100.4. Afebrile overnight. Opens eyes to voice. Does not follow commands this AM. - Objective Vital Signs & Weight: Vital Signs (12 hours) Temp Resp Pulse Ox 06/17/19 06:00 18 06/17/19 04:00 99.0 F 21 H 06/17/19 02:00 18 06/17/19 00:00 98.5 F 20 06/16/19 22:00 22 H 06/16/19 20:00 98.7 F 18 100 Weight Admit Weight 56.835 kg Weight 61.8 kg Most Recent Monitor Data Heart Rate from ECG 77 NIBP 94/45 NIBP BP-Mean 61 Respiration from ECG 19 SpO2 96 I&O: 06/16/19 06/17/19 06/18/19 06:59 06:59 06:59 Intake Total 1706 1958 Output Total 2095 1790 Balance -389 168 Result Diagrams: 06/17/19 03:50 06/17/19 03:50 Phys Exam - Physical Examination Constitutional: NAD Eyes open with tracking. Does not follow command, HEENT: PERRLA Neck: no nodes, supple Respiratory: no wheezing, clear to auscultation bilateral Cardiovascular: RRR, no significant murmur Gastrointestinal: soft, no distention, positive bowel sounds Edema BUE Does not move BUE on command, moves BLE to command sometimes Skin: normal turgor, cap refill <2 seconds Dx/Plan (1) Acute respiratory failure with hypoxia Code(s): J96.01 - ACUTE RESPIRATORY FAILURE WITH HYPOXIA Status: Acute (2) C. difficile colitis Code(s): A04.72 - ENTEROCOLITIS D/T CLOSTRIDIUM DIFFICILE, NOT SPCF RECUR Status: Acute (3) Syncope Code(s): R55 - SYNCOPE AND COLLAPSE Status: Acute Qualifiers: Syncope type: unspecified Qualified Code(s): R55 - Syncope and collapse (4) UTI (urinary tract infection) Status: Acute Qualifiers: Urinary tract infection type: acute cystitis Hematuria presence: without hematuria Qualified Code(s): N30.00 - Acute cystitis without hematuria (5) HFrEF (heart failure with reduced ejection fraction) Code(s): I50.20 - UNSPECIFIED SYSTOLIC (CONGESTIVE) HEART FAILURE Status: Chronic Qualifiers: Heart failure chronicity: chronic Qualified Code(s): I50.22 - Chronic systolic (congestive) heart failure (6) Hypertension Code(s): I10 - ESSENTIAL (PRIMARY) HYPERTENSION Status: Chronic Qualifiers: Hypertension type: essential hypertension Qualified Code(s): I10 - Essential (primary) hypertension (7) S/P colectomy Status: Acute - Plan Plan: Acute hypoxic respiratory failure requiring mechanical ventilation -Patient has not made much improvement over last week towards extubation. Family does not want tracheostomy. Possible extubation this week has been discussed with family. -Continue to wean ventilator as tolerated -Patient is severely deconditioned. PT/OT following. Continue neuro chair. Will need skilled PT/OT s/p discharge -Tylenol PRN for pain Sepsis 2/2 C. diff colitis with ileus, resolved - S/p open colectomy with ileostomy and bilateral salpingectomy - Continue PO Vancomycin (since 06/11) for 10 days - AWILDA and ileostomy drainage much improved - Patient did fever yesterday at 0700 to 100.4, afebrile overnight - s/p meropenem x10 days. Will not start antibiotic unless source obtained. Repeat blood and urine culture today Severe Critical Illness Myopathy -PT/OT consulted, will need skilled PT at discharge Swelling bilateral upper extremities -Swelling likely 2/2 to hypoalbuminemia -Jared wraps for swelling as needed Hypoalbuminemia, improved -s/p albumin; can consider giving additional Orthostatic hypotension, hx syncope and fall -Original cc. Pt had run of torsades de pointes -Echo Shows EF 40-45% -Continuing to monitor mag, pt remains in paced rhythm -Avoid QT prolonging agents -Mag replaced yesterday Hyperglycemia, improved -Non-diabetic, requiring insulin -Well controlled on Lantus 12 units sc, with SSI. Severe Thrombocytopenia, resolved HFrEF -AICD in place, shut off by company. -paced rhythm A-fib -AICD, turned off -Holding Eliquis with recent fall, on lovenox ppx HTN -Home meds held for hypotension HLD -continue home atorvastatin Depression -stop home citalopram, as QT prolonging agent -Potentially played part in [place] Klebsiella pneumoniae UTI, resolved VIRIDIANA, improved Acidosis, resolved Small AAA -CT shows AAA with 3.1cm dilation -Previous surgery for aorto-bifemoral bypass Lung nodule -Consider Outpt pulmonology consult Access: Rt Femoral Central line Code status: DNAR Dispo: In CCU, continue to wean ventilator as tolerated. Likely palliative extubation later this week. Palliative following. Continue neuro chair/PT for building strength. Case discussed with Dr. Monk Addendum - Attending - Attending Attestation Date/Time: 06/17/19 9759 I personally evaluated the patient and discussed the management with Dr. Swain. I agree with the History, Examination, Assessment and Plan documented above with any addition or exceptions noted below. Pt remains on the vent. Little to no change in respiratory status. Fever overnight and urine and blood cultures pending. Awaiting cultures and will start antibiotics if they are positive. Continue to discuss plans of care with family.
[2019-06-17] MEDS ORDERED: Furosemide 40 MG/4 ML VIAL SLOW IVP SCH (08:30)
[2019-06-17] MEDS: Insulin Glargine 12 UNITS in Pre-Filled Syringe 1 EACH SC SCH (08:32)
[2019-06-17] MEDS: Loperamide HCl 2 MG CAP PO SCH ×3 (08:33→20:55)
[2019-06-17] MEDS: Enoxaparin Sodium 40 MG/0.4 ML SYRINGE SC SCH (08:33)
[2019-06-17] MEDS: Digoxin 0.125 MG TAB PO SCH (08:33)
[2019-06-17] MEDS: Famotidine/PF 20 mg/2ml Vial SLOW IVP SCH (08:33)
[2019-06-17] MEDS: Metoprolol Tartrate 25 MG TAB PO SCH ×2 (08:34→21:30)
[2019-06-17] MEDS: Acetaminophen 325 MG TAB PO PRN (08:38)
--- NOTE | 2019-06-17 08:50 | RAD ---
CHEST 1 VIEW: Date: 06/17/19 HISTORY: Follow-up pneumonia. COMPARISON: Life support tubes in place. Left ICD. Bilateral vascular congestion and bilateral pleural effusions with minimal cardiomegaly, overall stable. IMPRESSION: Overall stable chest. POS: [facility]
--- NOTE | 2019-06-17 10:01 | PRG ---
DATE OF SERVICE: 06/17/2019 TIME SPENT: 35 minutes critical care time. SUBJECTIVE: The patient remains intubated on mechanical ventilation. She does awaken fairly easy. I was able to get her to squeeze both hands. She moves both legs fairly well, but does not move, her upper arms very well. OBJECTIVE: VITAL SIGNS: Temperature 99.0, pulse 77, blood pressure 106/47. HEENT: Unremarkable. NECK: No adenopathy or JVD. CHEST: Diminished breath sounds at bases. CARDIAC: S1 and S2. Regular. ABDOMEN: Soft. EXTREMITIES: Edematous throughout. LABORATORY DATA: Sodium 143, potassium 4.8, chloride 113, CO2 of 26, BUN 36, creatinine 0.6, glucose 140, albumin 2.4. White blood cell count 10.8, hematocrit 34.7, and platelet count 307. ASSESSMENT: 1. Acute respiratory failure requiring mechanical ventilation. 2. Severe critical illness myopathy. 3. Status post laparotomy for colectomy for Clostridium difficile colitis. PLAN: The patient's son is coming today. He has not seen his mom in quite some time. I asked the family yesterday to make a decision regarding extubation. I am not sure giving her more time. It is going to make much difference in the end. I do not think we will fully know how she is going to do until she is extubated. The family is against having a tracheostomy placed. Job ID: [id number]
--- NOTE | 2019-06-17 17:02 | PRG ---
DATE OF SERVICE: 06/17/2019 SUBJECTIVE: Ms. Sousa is postoperative day #12 from exploratory laparotomy and subtotal colectomy with ileostomy creation. She has been hemodynamically stable since the day or two after her surgery. She, however, continues to be ventilator dependent. She has been very weak and has had difficulty progressing off the ventilator. She has been tolerating full dose tube feeds for over a week now and her ileostomy has been working well. There was a drain in place until yesterday, which I removed as this was draining only serous fluid. She had been on antibiotics and continues to receive p.o. vancomycin as she had Clostridium difficile as the source of her colitis. Her other IV antibiotics (meropenem) have been discontinued. She continues to receive loperamide to help decrease the frequency of her ileostomy output. OBJECTIVE: VITAL SIGNS: She is afebrile with stable vital signs. Her pulse is 78, blood pressure is 96/48. GENERAL: She is resting comfortably in bed. She is arousable. Yesterday, she interacted nicely. Today, I did not wake her. LUNGS: Clear to auscultation. ABDOMEN: Soft, nontender, nondistended with normoactive bowel sounds. EXTREMITIES: Unremarkable. LABORATORY DATA: CBC shows a hemoglobin of 11 with a white blood cell count of 10.8. Her chemistry profile is unremarkable. Her albumin is a little bit low at 2.4, but stable for her. ASSESSMENT AND PLAN: She is stable after her subtotal colectomy for toxic megacolon related Clostridium difficile. Although, I would recommend tracheostomy placement to help her wean from the ventilator, told her family as opposed to this. She has no significant problems subsequent to her surgery. Given her age and the extent of her illness, it is taking her a while to bounce back from the operation, but this is not surprising. Job ID: [id number]
[2019-06-17] MEDS: Atorvastatin Calcium 20 MG TAB PO SCH (20:55)
[2019-06-18] MEDS: Vancomycin HCl 25 MG/ML Oral PO SCH ×4 (00:24→18:39)
[2019-06-18 05:15] LABS: #Eosinphils 0.1 thou/uL (0.0-0.7); #Lymphocytes 0.7 thou/uL (1.20-3.40); #Monocytes 0.6 thou/uL (0.11-0.59); #Neutrophils 7.5 thou/uL (1.40-6.50); %Basophils 0.5 % (0.0-1.0); %Eosinophils 0.8 % (0.0-10.0); %Lymphocytes 8.2 % (21.0-51.0); %Monocytes 6.7 % (0.0-10.0); %Neutrophils 83.8 % (42.0-75.0); Hemoglobin 10.2 g/dL (12.0-16.0); Mean Corpuscular HGB CONC 32.1 g/dL (32.0-36.0); Mean Corpuscular Hemoglobin 29.8 pg (27.0-31.0); Mean Corpuscular Volume 92.8 fL (78.0-98.0); Mean Platelet Volume 9.1 fL (7.4-10.4); Platelet Count 313 thou/uL (130-400); RBC Distribution Width 14.9 % (11.5-14.5); Red Blood Cell (RBC) Count 3.42 mill/uL (4.20-5.40)
[2019-06-18 05:35] LABS: ALT (SGPT) 12 U/L (8-55); AST (SGOT) 16 U/L (5-34); Albumin 2.4 g/dL (3.4-4.8); Alkaline Phosphatase 116 U/L (40-110); Anion Gap 10 mmol/L (10-20); BUN (Urea Nitrogen) 35 mg/dL (9.8-20.1); Bilirubin, Total 0.6 mg/dL (0.2-1.2); Calc. Creatinine Clearance 64 mL/min (70-130); Calcium 9.1 mg/dL (7.8-10.44); Carbon Dioxide 23 mmol/L (23-31); Chloride 112 mmol/L (98-107); Estimated GFR-MDRD 90; Globulin 2.8 g/dL (2.4-3.5); Glucose 134 mg/dL (83-110); Magnesium 1.8 mg/dL (1.6-2.6); Phosphorus 3.2 mg/dL (2.3-4.7); Potassium 4.4 mmol/L (3.5-5.1); Protein, Total 5.2 g/dL (6.0-8.3); Sodium 141 mmol/L (136-145)
[2019-06-18] MEDS ORDERED: Magnesium 2 GM/50 ML 2 GM in Premix Bag 1 BAG IVPB SCH (06:45)
--- NOTE | 2019-06-18 07:07 | PDOC.FM ---
- Subjective Subjective: Patient remains intubated. Family saw palliative yesterday, family felt patient was improved yesterday morning and wanted to give the patient time before extubating. Tmax 100.3 F overnight (no tylenol given as not true fever), blood and urine cx drawn yesterday and are pending. - Objective Vital Signs & Weight: Vital Signs (12 hours) Temp Resp Pulse Ox 06/18/19 06:00 19 06/18/19 04:00 99.9 F H 16 06/18/19 02:00 14 06/18/19 00:00 100.3 F H 22 H 06/17/19 22:00 23 H 06/17/19 20:00 100.0 F H 25 H 97 Weight Admit Weight 56.835 kg Weight 59.9 kg Most Recent Monitor Data Heart Rate from ECG 78 NIBP 126/63 NIBP BP-Mean 84 Respiration from ECG 28 SpO2 97 I&O: 06/17/19 06/18/19 06/19/19 06:59 06:59 06:59 Intake Total 1958 1569 Output Total 1790 2590 Balance 168 -1021 Result Diagrams: 06/18/19 04:31 06/18/19 04:31 Phys Exam - Physical Examination Constitutional: NAD HEENT: PERRLA Neck: no nodes, supple Respiratory: no wheezing, clear to auscultation bilateral Cardiovascular: RRR, no significant murmur Gastrointestinal: soft, non-tender, positive bowel sounds Edema 2+ BUE Squeezes hand bilat on command (2/5 strength), cannot lift arms Skin: normal turgor, cap refill <2 seconds Dx/Plan (1) Acute respiratory failure with hypoxia Code(s): J96.01 - ACUTE RESPIRATORY FAILURE WITH HYPOXIA Status: Acute (2) C. difficile colitis Code(s): A04.72 - ENTEROCOLITIS D/T CLOSTRIDIUM DIFFICILE, NOT SPCF RECUR Status: Acute (3) Syncope Code(s): R55 - SYNCOPE AND COLLAPSE Status: Acute Qualifiers: Syncope type: unspecified Qualified Code(s): R55 - Syncope and collapse (4) UTI (urinary tract infection) Status: Acute Qualifiers: Urinary tract infection type: acute cystitis Hematuria presence: without hematuria Qualified Code(s): N30.00 - Acute cystitis without hematuria (5) HFrEF (heart failure with reduced ejection fraction) Code(s): I50.20 - UNSPECIFIED SYSTOLIC (CONGESTIVE) HEART FAILURE Status: Chronic Qualifiers: Heart failure chronicity: chronic Qualified Code(s): I50.22 - Chronic systolic (congestive) heart failure (6) Hypertension Code(s): I10 - ESSENTIAL (PRIMARY) HYPERTENSION Status: Chronic Qualifiers: Hypertension type: essential hypertension Qualified Code(s): I10 - Essential (primary) hypertension (7) S/P colectomy Status: Acute (8) Ileostomy in place Code(s): Z93.2 - ILEOSTOMY STATUS Status: Acute (9) 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 Code(s): A04.72 - ENTEROCOLITIS D/T CLOSTRIDIUM DIFFICILE, NOT SPCF RECUR Status: Acute (10) Physical deconditioning Code(s): R53.81 - OTHER MALAISE Status: Acute (11) Critical illness myopathy Code(s): G72.81 - CRITICAL ILLNESS MYOPATHY Status: Acute (12) UTI due to Klebsiella species Code(s): N39.0 - URINARY TRACT INFECTION, SITE NOT SPECIFIED; B96.1 - KLEBSIELLA PNEUMONIAE THE CAUSE OF DISEASES CLASSD ELSWHR Status: Acute (13) Torsades de pointes Code(s): I47.2 - VENTRICULAR TACHYCARDIA Status: Acute - Plan Plan: Acute hypoxic respiratory failure requiring mechanical ventilation -Patient has not made much improvement over last week towards extubation. Family does not want tracheostomy. Possible extubation this week has been discussed with family. -Continue to wean ventilator as tolerated Severe Critical Illness Myopathy -PT/OT consulted, will need skilled PT at discharge -Patient is severely deconditioned. PT/OT following. Continue neuro chair. Will need skilled PT/OT s/p discharge Fever 06/17 2/2 unknown source - s/p meropenem x10 days. - Will not start antibiotic unless source obtained. Repeat blood and urine culture yesterday are pending - Tmax overnight 100.3, no tylenol given as not true fever Sepsis 2/2 C. diff colitis with ileus, resolved - S/p open colectomy with ileostomy and bilateral salpingectomy - Continue PO Vancomycin (since 06/11) for 10 days. S/p meropenem. - AWILDA drain pulled. Ileostomy draining stool, pt remains on immodium Swelling bilateral upper extremities -Swelling likely 2/2 to hypoalbuminemia -Jared wraps for swelling as needed Hypoalbuminemia, improved -s/p albumin; can consider giving additional Orthostatic hypotension, hx syncope and fall -Original cc. Pt had run of torsades de pointes -Echo Shows EF 40-45% -Continuing to monitor mag, pt remains in paced rhythm -Avoid QT prolonging agents -Monitor and replace mag with goal mag >2 Hyperglycemia, controlled -Non-diabetic, requiring insulin -Well controlled on Lantus 12 units sc, with SSI. Severe Thrombocytopenia, resolved HFrEF -AICD in place, shut off by [employer]. -paced rhythm A-fib -AICD, turned off -Holding Eliquis with recent fall, on lovenox ppx HTN -Home meds held for hypotension HLD -continue home atorvastatin Depression -stop home citalopram, as QT prolonging agent -Potentially played part in [place] Klebsiella pneumoniae UTI, resolved VIRIDIANA, improved Acidosis, resolved Small AAA -CT shows AAA with 3.1cm dilation -Previous surgery for aorto-bifemoral bypass Lung nodule -Consider Outpt pulmonology consult Elevated Alk Phos -Follow up outpatient if appropriate Normocytic Anemia, stable -Hgb 10.2 -Likely 2/2 combination anemia of chronic disease, lab draws, and hemodilution -minimize blood draws Access: Rt Femoral Central line Code status: DNAR Dispo: In CCU, continue to wean ventilator as tolerated. Likely palliative extubation later this week. Palliative following. Continue neuro chair/PT for building strength. Case discussed with Dr. Monk Addendum - Attending - Attending Attestation Date/Time: 06/18/19 1663 I personally evaluated the patient and discussed the management with Dr. Swain. I agree with the History, Examination, Assessment and Plan documented above with any addition or exceptions noted below. The patient remains intubated. Family is considering extubation. Poor effort noted on spontaneous breathing triel. No fever overnight. Cultures pending.
[2019-06-18] MEDS: Famotidine/PF 20 mg/2ml Vial SLOW IVP SCH (08:29)
[2019-06-18] MEDS: Enoxaparin Sodium 40 MG/0.4 ML SYRINGE SC SCH (08:29)
[2019-06-18] MEDS: Digoxin 0.125 MG TAB PO SCH (08:29)
[2019-06-18] MEDS: Metoprolol Tartrate 25 MG TAB PO SCH ×2 (08:29→20:58)
[2019-06-18] MEDS: Loperamide HCl 2 MG CAP PO SCH ×3 (08:29→20:56)
--- NOTE | 2019-06-18 09:15 | PRG ---
DATE OF SERVICE: 06/18/2019 30 minutes critical care time. SUBJECTIVE: The patient remains on mechanical ventilation. She is currently attempting a spontaneous breathing trial, but does not appear to be doing well on that. OBJECTIVE: VITAL SIGNS: Temperature 99.9 with a T-max of 100.3, pulse 74, blood pressure 126/63. Intake 24 hours 1569, output 2575. HEENT: Unremarkable, except for the ET tube in place. NECK: No adenopathy or JVD. No bruits. LUNGS: Fairly clear. CARDIAC: S1, S2. Regular/paced. ABDOMEN: Soft, nontender. EXTREMITIES: Edematous. NEUROMUSCULAR: She will not squeeze with her hand. She will not raise her arms, but she does move her legs. LABORATORY DATA: White blood cell count 9, hematocrit 31.7, and platelet count 313. Sodium 141, potassium 4.4, chloride 112, CO2 of 23, BUN 35, creatinine 0.6, glucose 134. Her chest x-ray is unchanged. ASSESSMENT: 1. Critical illness myopathy. 2. Status post laparotomy with colectomy and subsequent ileostomy for C diff colitis. 3. Respiratory failure, requiring mechanical ventilation. PLAN: I have no confidence that the patient would do well extubated, although I think ultimately, the family will decide to extubate and go forward with comfort measures. We are trying to whittle down her pressure support, but her spontaneous tidal volumes are still quite low. I really do not see this situation getting better, but I think the family needs some time to accept the inevitable. Job ID: [id number]
--- NOTE | 2019-06-18 09:29 | RAD ---
PORTABLE CHEST: INDICATIONS: Pneumonia. COMPARISON: 06/17/2019 FINDINGS: Bilateral effusions and bibasilar infiltrates or atelectasis. Mild vascular engorgement. Mild cardiom egaly. ET tube, NG tube and AICD leads are all unchanged in position. IMPRESSION: No significant change from yesterday. POS: OFF
[2019-06-18] MEDS: Insulin Glargine 12 UNITS in Pre-Filled Syringe 1 EACH SC SCH (09:32)
[2019-06-18] MEDS ORDERED: Budesonide 0.5 MG/2 ML NEB ONE (12:25)
--- NOTE | 2019-06-18 18:31 | PRG ---
DATE OF SERVICE: 06/18/2019 SUBJECTIVE: Ms. Sousa remains in the Intensive Care Unit on the ventilator. She is postoperative day #13 from exploratory laparotomy and subtotal colectomy with ileostomy creation. She remains hemodynamically stable and alert. She continues to be weak and ventilator dependent. She has apparently been on CPAP most of the past couple of days. She is tolerating tube feeds and has good ostomy output. OBJECTIVE: VITAL SIGNS: On physical examination, she is afebrile. Vital signs are within normal limits. LUNGS: Clear to auscultation. ABDOMEN: Benign with good bowel sounds. Urine output was 1900 mL yesterday. LABORATORY DATA: Her CBC remains essentially normal with a white blood cell count of 9 and hemoglobin of 10.2. Chemistries reveal no significant electrolyte abnormalities. Her albumin remains depressed at 2.4. ASSESSMENT: She remains stable from a surgical standpoint. I am uncertain that she will be able to breathe appropriately if she is extubated. Family is apparently still opposed to a tracheostomy. I believe they have been speaking to Dr. Lin about plans regarding extubation. For now, I will increase her loperamide to decrease her ileostomy output to help with her nutritional status. Job ID: [id number]
[2019-06-18] MEDS: Atorvastatin Calcium 20 MG TAB PO SCH (20:56)
[2019-06-19] MEDS: Vancomycin HCl 25 MG/ML Oral PO SCH ×5 (00:15→23:55)
[2019-06-19 06:59] LABS: Anion Gap 11 mmol/L (10-20); BUN (Urea Nitrogen) 32 mg/dL (9.8-20.1); Calc. Creatinine Clearance 61 mL/min (70-130); Carbon Dioxide 25 mmol/L (23-31); Chloride 111 mmol/L (98-107); Estimated GFR-MDRD 88; Glucose 113 mg/dL (83-110); Phosphorus 3.4 mg/dL (2.3-4.7); Potassium 4.9 mmol/L (3.5-5.1); Sodium 142 mmol/L (136-145)
--- NOTE | 2019-06-19 08:03 | RAD ---
XR Chest 1 View Portable History: Pneumonia Comparison: Radiograph prior day Findings: Patient is intubated endotracheal tube tip in similar position above the tanika. AICD/pacer is similar. Enteric tube side port below the GE junction. Moderate bilateral effusions. Left basilar opacity. No acute osseous abnormality. Heart size is mildly enlarged. Impression: Similar examination the chest.
--- NOTE | 2019-06-19 08:10 | PDOC.FM ---
- Subjective Subjective: Patient continues to be very weak on ventilator. NIF of 6 this morning. T max 100.3 overnight. She was on CPAP most of yesterday, had to be increased from PIP/PEEP of 8/5 to 9 /5 yesterday afternoon. - Objective Vital Signs & Weight: Vital Signs (12 hours) Temp Pulse Resp BP 06/19/19 07:08 74 111/57 L 06/19/19 06:00 15 06/19/19 05:00 98.9 F 06/19/19 04:00 17 06/19/19 02:15 74 107/62 06/19/19 02:00 17 06/19/19 00:00 98.1 F 13 06/18/19 22:46 75 117/59 L 06/18/19 22:00 23 H Weight Admit Weight 56.835 kg Weight 59.7 kg Most Recent Monitor Data Heart Rate from ECG 72 NIBP 119/50 NIBP BP-Mean 73 Respiration from ECG 19 SpO2 100 I&O: 06/18/19 06/19/19 06/20/19 06:59 06:59 06:59 Intake Total 1569 1816 Output Total 2590 875 Balance -1021 941 Result Diagrams: 06/18/19 04:31 06/19/19 06:31 Phys Exam - Physical Examination Constitutional: NAD Laying in bed on exam this AM. Neck: no nodes, supple Respiratory: no wheezing, clear to auscultation bilateral Diminished breath sounds at bases Cardiovascular: RRR Gastrointestinal: soft, non-tender Musculoskeletal: pulses present 1+ pulses bilat LE. Edema BUE. 1/5 bilateral squeeze on exam Follows commands, squeezes weakly BUE, moves toes BLE to command Deviation from normal: Flat affect Skin: cap refill <2 seconds Dx/Plan (1) Acute respiratory failure with hypoxia Code(s): J96.01 - ACUTE RESPIRATORY FAILURE WITH HYPOXIA Status: Acute (2) C. difficile colitis Code(s): A04.72 - ENTEROCOLITIS D/T CLOSTRIDIUM DIFFICILE, NOT SPCF RECUR Status: Acute (3) Syncope Code(s): R55 - SYNCOPE AND COLLAPSE Status: Acute Qualifiers: Syncope type: unspecified Qualified Code(s): R55 - Syncope and collapse (4) UTI (urinary tract infection) Status: Acute Qualifiers: Urinary tract infection type: acute cystitis Hematuria presence: without hematuria Qualified Code(s): N30.00 - Acute cystitis without hematuria (5) HFrEF (heart failure with reduced ejection fraction) Code(s): I50.20 - UNSPECIFIED SYSTOLIC (CONGESTIVE) HEART FAILURE Status: Chronic Qualifiers: Heart failure chronicity: chronic Qualified Code(s): I50.22 - Chronic systolic (congestive) heart failure (6) Hypertension Code(s): I10 - ESSENTIAL (PRIMARY) HYPERTENSION Status: Chronic Qualifiers: Hypertension type: essential hypertension Qualified Code(s): I10 - Essential (primary) hypertension (7) S/P colectomy Status: Acute (8) Ileostomy in place Code(s): Z93.2 - ILEOSTOMY STATUS Status: Acute (9) 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 Code(s): A04.72 - ENTEROCOLITIS D/T CLOSTRIDIUM DIFFICILE, NOT SPCF RECUR Status: Acute (10) Physical deconditioning Code(s): R53.81 - OTHER MALAISE Status: Acute (11) Critical illness myopathy Code(s): G72.81 - CRITICAL ILLNESS MYOPATHY Status: Acute (12) UTI due to Klebsiella species Code(s): N39.0 - URINARY TRACT INFECTION, SITE NOT SPECIFIED; B96.1 - KLEBSIELLA PNEUMONIAE THE CAUSE OF DISEASES CLASSD ELSWHR Status: Acute (13) Torsades de pointes Code(s): I47.2 - VENTRICULAR TACHYCARDIA Status: Acute - Plan Plan: Acute hypoxic respiratory failure requiring mechanical ventilation -Patient has not made progress towards extubation due to severe weakness and lack of respiratory effort. NIF of 6 this AM. -Family still working towards making a decision about extubation -Palliative following Severe Critical Illness Myopathy -PT/OT consulted, will need skilled PT at discharge -Patient is severely deconditioned. PT/OT following. Continue neuro chair. Fever 06/17 2/2 unknown source - s/p meropenem x10 days. - Will not start antibiotic unless source obtained. Repeat blood and urine culture NGTD - Tmax overnight 06/18-06/19 was 100.3, no tylenol given as not true fever Sepsis 2/2 C. diff colitis with ileus, resolved - Continue PO Vancomycin (since 06/11) for 10 days, tomorrow will be last day of PO Vanc. S/p meropenem. - S/p open colectomy with ileostomy and bilateral salpingectomy - ileostomy draining well Swelling bilateral upper extremities -Swelling likely 2/2 to hypoalbuminemia Hypoalbuminemia, improved -s/p albumin; can consider giving additional Orthostatic hypotension, hx syncope and fall -Original cc. Pt had run of torsades de pointes -Echo Shows EF 40-45% -Continuing to monitor mag, pt remains in paced rhythm -Avoid QT prolonging agents -Monitor and replace mag with goal mag >2 Hyperglycemia, controlled -Non-diabetic, requiring insulin -Well controlled on Lantus 12 units sc, with SSI. Severe Thrombocytopenia, resolved HFrEF -AICD in place, shut off by company. -paced rhythm A-fib -AICD, turned off -Holding Eliquis with recent fall, on lovenox ppx HTN -Home meds held for hypotension HLD -continue home atorvastatin Depression -stop home citalopram, as QT prolonging agent -Potentially played part in [place] Klebsiella pneumoniae UTI, resolved VIRIDIANA, improved Acidosis, resolved Small AAA -CT shows AAA with 3.1cm dilation -Previous surgery for aorto-bifemoral bypass Lung nodule -Consider Outpt pulmonology consult Elevated Alk Phos -Follow up outpatient if appropriate Normocytic Anemia, stable -Likely 2/2 combination anemia of chronic disease, lab draws, and hemodilution -minimize blood draws Access: Rt Femoral Central line Code status: DNAR Dispo: Discuss palliative extubation with family. Palliative following. Patient continues to not improve her respiratory status due to severe weakness and lack of respiratory effort/strength. Case discussed with Dr. Monk Addendum - Attending - Attending Attestation Date/Time: 06/19/19 7997 I personally evaluated the patient and discussed the management with Dr. Swain. I agree with the History, Examination, Assessment and Plan documented above with any addition or exceptions noted below. Repeat blood and urine cultures negative to date. The patient's respiratory status is unchanged. Still waiting on family decisions.
[2019-06-19] MEDS: Scopolamine 1.5 mg/72 hour Patch TD SCH (09:13)
[2019-06-19] MEDS: Digoxin 0.125 MG TAB PO SCH (09:14)
[2019-06-19] MEDS: Loperamide HCl 2 MG CAP PO SCH ×4 (09:15→20:14)
[2019-06-19] MEDS: Enoxaparin Sodium 40 MG/0.4 ML SYRINGE SC SCH (09:15)
[2019-06-19] MEDS: Metoprolol Tartrate 25 MG TAB PO SCH ×2 (09:15→20:14)
[2019-06-19] MEDS: Insulin Glargine 12 UNITS in Pre-Filled Syringe 1 EACH SC SCH (09:16)
[2019-06-19] MEDS: Famotidine/PF 20 mg/2ml Vial SLOW IVP SCH (09:16)
--- NOTE | 2019-06-19 09:17 | PRG ---
DATE OF SERVICE: 06/19/2019 35 minutes critical care time. SUBJECTIVE: She remains intubated on mechanical ventilation. She is up in a chair. She has made no progress. She has a negative inspiratory force that is about 6. OBJECTIVE: VITAL SIGNS: Her temperature is 98.9, pulse 72, blood pressure 119/50, O2 saturation 100%. Intake 1816, output 875. HEENT: Unremarkable. NECK: No adenopathy or JVD. LUNGS: Inspiratory crackles at bases. CARDIAC: S1, S2. Regular. ABDOMEN: Soft. EXTREMITIES: Edematous. NEUROMUSCULAR: She has absolutely no strength and does not follow any commands. LABORATORY DATA: Sodium 142, potassium 4.9, chloride 111, CO2 of 25, BUN 32, creatinine 0.6, glucose 113. Her chest x-ray shows interstitial changes bilaterally. ET tube is in good position. ASSESSMENT: 1. Continued profound neuromuscular weakness without evidence of recovery. 2. Acute respiratory failure, requiring mechanical ventilation. 3. Status post colectomy and subsequent ileostomy for C difficile colitis. PLAN: I do not think this is going to get better with time and I would encourage extubation as soon as practical with the family. I think this can take place as early as tomorrow. Job ID: [id number]
[2019-06-19] MEDS: Atorvastatin Calcium 20 MG TAB PO SCH (20:14)
[2019-06-20] MEDS: Vancomycin HCl 25 MG/ML Oral PO SCH ×3 (05:08→17:17)
[2019-06-20 05:45] LABS: Anion Gap 9 mmol/L (10-20); BUN (Urea Nitrogen) 31 mg/dL (9.8-20.1); Calc. Creatinine Clearance 62 mL/min (70-130); Calcium 9.1 mg/dL (7.8-10.44); Carbon Dioxide 25 mmol/L (23-31); Chloride 111 mmol/L (98-107); Estimated GFR-MDRD 90; Glucose 121 mg/dL (83-110); Phosphorus 3.1 mg/dL (2.3-4.7); Potassium 4.7 mmol/L (3.5-5.1); Sodium 140 mmol/L (136-145)
[2019-06-20] MEDS: Magnesium Oxide 400 MG TAB PO PRN (06:04)
[2019-06-20] MEDS ORDERED: Magnesium 2 GM/50 ML 2 GM in Premix Bag 1 BAG IVPB SCH (06:45)
--- NOTE | 2019-06-20 07:29 | PDOC.FM ---
- Subjective Subjective: Patient had a fever to 100.5 overnight. Family wants to extubate on Sunday. PO vanc stopped yesterday, patient is off C Diff precautions. She remains able to squeeze BUE - Objective Vital Signs & Weight: Vital Signs (12 hours) Temp Pulse Resp BP Pulse Ox 06/20/19 06:00 20 06/20/19 05:00 99.8 F H 06/20/19 04:00 20 06/20/19 02:13 72 126/54 L 06/20/19 02:00 19 06/20/19 00:00 99.7 F H 23 H 06/19/19 22:31 70 112/62 06/19/19 22:00 21 H 06/19/19 20:00 22 H 99 Weight Admit Weight 56.835 kg Weight 60.2 kg Most Recent Monitor Data Heart Rate from ECG 88 NIBP 110/65 NIBP BP-Mean 80 Respiration from ECG 46 SpO2 97 I&O: 06/19/19 06/20/19 06/21/19 06:59 06:59 06:59 Intake Total 1816 1605 Output Total 875 1435 Balance 941 170 Result Diagrams: 06/18/19 04:31 06/21/19 03:43 Phys Exam - Physical Examination Patient appears uncomfortable this AM, on mechanical ventilation Respiratory: no wheezing, clear to auscultation bilateral Cardiovascular: RRR 1/6 systolic murmur, loudest at apex Gastrointestinal: soft, non-tender midline incision healing well, ileostomy draining; AWILDA site draining clear y ellow fluid Edema BUE Profound weakness BUE and BLE Skin: normal turgor, cap refill <2 seconds Dx/Plan (1) Acute respiratory failure with hypoxia Code(s): J96.01 - ACUTE RESPIRATORY FAILURE WITH HYPOXIA Status: Acute (2) C. difficile colitis Code(s): A04.72 - ENTEROCOLITIS D/T CLOSTRIDIUM DIFFICILE, NOT SPCF RECUR Status: Acute (3) Syncope Code(s): R55 - SYNCOPE AND COLLAPSE Status: Acute Qualifiers: Syncope type: unspecified Qualified Code(s): R55 - Syncope and collapse (4) UTI (urinary tract infection) Status: Acute Qualifiers: Urinary tract infection type: acute cystitis Hematuria presence: without hematuria Qualified Code(s): N30.00 - Acute cystitis without hematuria (5) HFrEF (heart failure with reduced ejection fraction) Code(s): I50.20 - UNSPECIFIED SYSTOLIC (CONGESTIVE) HEART FAILURE Status: Chronic Qualifiers: Heart failure chronicity: chronic Qualified Code(s): I50.22 - Chronic systolic (congestive) heart failure (6) Hypertension Code(s): I10 - ESSENTIAL (PRIMARY) HYPERTENSION Status: Chronic Qualifiers: Hypertension type: essential hypertension Qualified Code(s): I10 - Essential (primary) hypertension (7) S/P colectomy Status: Acute (8) Ileostomy in place Code(s): Z93.2 - ILEOSTOMY STATUS Status: Acute (9) 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 Code(s): A04.72 - ENTEROCOLITIS D/T CLOSTRIDIUM DIFFICILE, NOT SPCF RECUR Status: Acute (10) Physical deconditioning Code(s): R53.81 - OTHER MALAISE Status: Acute (11) Critical illness myopathy Code(s): G72.81 - CRITICAL ILLNESS MYOPATHY Status: Acute (12) UTI due to Klebsiella species Code(s): N39.0 - URINARY TRACT INFECTION, SITE NOT SPECIFIED; B96.1 - KLEBSIELLA PNEUMONIAE THE CAUSE OF DISEASES CLASSD ELSWHR Status: Acute (13) Torsades de pointes Code(s): I47.2 - VENTRICULAR TACHYCARDIA Status: Acute - Plan Plan: Acute hypoxic respiratory failure requiring mechanical ventilation -Patient remains very weak. Family has decided to extubate on Sunday. -Palliative following -Morphine 2q4 for pain Severe Critical Illness Myopathy -PT/OT consulted -Patient is severely deconditioned. PT/OT following. Continue neuro chair. Fever 06/17 2/2 unknown source - s/p meropenem x10 days. - Will not start antibiotic unless source obtained. Repeat blood and urine culture NGTD (48 hours) - Tmax overnight 100.5, Tylenol PRN Sepsis 2/2 C. diff colitis with ileus, resolved - S/p 10 days meropenem, 10 days PO vanc. Off precautions - S/p open colectomy with ileostomy and bilateral salpingectomy - ileostomy draining well -AWILDA draining clear yellow fluid Swelling bilateral upper extremities -Swelling likely 2/2 to hypoalbuminemia Hypoalbuminemia, improved -s/p albumin; can consider giving additional Orthostatic hypotension, hx syncope and fall -Original cc. Pt had run of torsades de pointes -Echo Shows EF 40-45% -Continuing to monitor mag, pt remains in paced rhythm -Avoid QT prolonging agents -Monitor and replace mag with goal mag >2 Hyperglycemia, controlled -Non-diabetic, requiring insulin -Well controlled on Lantus 12 units sc, with SSI. Severe Thrombocytopenia, resolved HFrEF -AICD in place, shut off by company. -paced rhythm A-fib -AICD, turned off -Holding Eliquis with recent fall, on lovenox ppx HTN -Home meds held for hypotension HLD -continue home atorvastatin Depression -stop home citalopram, as QT prolonging agent -Potentially played part in [place] Klebsiella pneumoniae UTI, resolved VIRIDIANA, improved Acidosis, resolved Small AAA -CT shows AAA with 3.1cm dilation -Previous surgery for aorto-bifemoral bypass Lung nodule -will not likely need Outpt pulmonology consult Elevated Alk Phos -Follow up outpatient if appropriate Normocytic Anemia, stable -Likely 2/2 combination anemia of chronic disease, lab draws, and hemodilution -minimize blood draws Access: Rt Femoral Central line Code status: DNAR Dispo: Family plans palliative extubation on Sunday. Case discussed with Dr. Monk Addendum - Attending - Attending Attestation Date/Time: 06/20/19 3017 I personally evaluated the patient and discussed the management with Dr. Swain. I agree with the History, Examination, Assessment and Plan documented above with any addition or exceptions noted below. The patient remains unchanged. Family plans to extubate Sunday. Pt did appear to be uncomfortable this morning and pain meds were ordered.
--- NOTE | 2019-06-20 08:06 | PRG ---
DATE OF SERVICE: 06/20/2019 TIME: 35 minutes of critical care time. SUBJECTIVE: The patient remains intubated on mechanical ventilation. OBJECTIVE: VITAL SIGNS: On exam, temperature 99.8 with a T-max of 100.5, pulse 88, blood pressure 110/65, 24-hour intake 1605, output 1435. HEENT: Unremarkable. NECK: No adenopathy or JVD. LUNGS: Clear anteriorly. CARDIAC: S1, S2 regular. ABDOMEN: Soft. EXTREMITIES: Trace edema throughout. NEUROMUSCULAR: She is still very weak, will not cone picker her arms. LABORATORY DATA: Sodium 140, potassium 4.7, BUN 31, creatinine 0.6 glucose 121. Chest x-ray is unchanged. ASSESSMENT: 1. The patient has continued hypoxic respiratory failure, requiring mechanical ventilation. Main issue is profound neuromuscular weakness without evidence of recovery. 2. 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 PLAN: I believe the patient's family is proceeding with compassionate extubation on Sunday. They are expecting a few more to come from out of town. I do not expect the patient do well after extubation. Because of low-grade fever, she has undergone another sepsis workup. We will restart antibiotics if something points toward a source. Otherwise, we are holding off on that for now. Job ID: [id number]
[2019-06-20] MEDS: Digoxin 0.125 MG TAB PO SCH (08:36)
[2019-06-20] MEDS: Enoxaparin Sodium 40 MG/0.4 ML SYRINGE SC SCH (08:37)
[2019-06-20] MEDS: Loperamide HCl 2 MG CAP PO SCH ×4 (08:38→20:59)
[2019-06-20] MEDS: Metoprolol Tartrate 25 MG TAB PO SCH ×2 (08:38→20:59)
[2019-06-20] MEDS: Famotidine/PF 20 mg/2ml Vial SLOW IVP SCH (08:38)
--- NOTE | 2019-06-20 08:57 | RAD ---
Chest AP view INDICATION: Pneumonia COMPARISON: June 19, 2019 FINDINGS: Lungs:There are bibasilar airspace opacities suspicious for atelectasis and/or edema Cardiac silhouette:There is worsening cardiomegaly Pulmonary vasculature:There is worsening pulmonary vascular congestion Pleural spaces:There are worsening small bilateral pleural effusions Upper abdomen:No abnormality seen. Osseous structures: No acute osseous abnormality. Additional findings:Patient remains intubated with gastric catheter placement. AICD is unchanged. No pneumothorax. IMPRESSION: Findings of CHF
[2019-06-20] MEDS: Insulin Glargine 12 UNITS in Pre-Filled Syringe 1 EACH SC SCH (09:10)
--- NOTE | 2019-06-20 09:19 | PRG ---
DATE OF SERVICE: 06/20/2019 SUBJECTIVE: Ms. Sousa remains in the Intensive Care Unit on the ventilator. 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 She remains hemodynamically stable as she has been for the past 12 days. She continues to tolerate tube feeds with appropriate ileostomy output. She also remains weak and ventilator dependent. She is on CPAP throughout the day and then apparently tolerating this well. OBJECTIVE: GENERAL: She is alert and follows commands, but she remains very weak and has difficulty even squeezing hands. Examination is unchanged. VITAL SIGNS: She is afebrile with normal vital signs. LUNGS: Clear. ABDOMEN: Benign. ASSESSMENT AND PLAN: I had a conversation yesterday with 2 of her family members. They asked for my opinion regarding a possible tracheostomy and feeding tube. I explained to them that without that intervention that there is a good chance that she will develop respiratory failure when she is extubated. With tracheostomy and percutaneous endoscopic gastrostomy tube placement, I felt that, that would give her a chance to recover. It, however, is uncertain to what extent and at what rate she will recover. She may end up requiring senior living placement for the rest of her life. I explained that we were dealing with a series of unknowns. She currently has no immediate threatening medical problems other than her extensive deconditioning. They told me that they would consider the options and discuss this with other family members and make a decision. Today is Sunday and apparently, the plan is to extubate her on Sunday unless they decide to have a tracheostomy and feeding tube placed. If this decision was made, then I would be happy to proceed with these interventions for them. Job ID: [id number]
[2019-06-20] MEDS ORDERED: Furosemide 20 MG/2 ML VIAL SLOW IVP SCH (10:45)
[2019-06-20] MEDS: Atorvastatin Calcium 20 MG TAB PO SCH (20:59)
--- NOTE | 2019-06-20 22:48 | PDOC.EVN ---
Event Note - Event Note Event Note: Transition of Care Note 83 yo F with PMH of HTN, HLD, Afib, HFrEF, AAA with bypass, and depression presented after episode of syncope at home. She was found to have UTI, which was treated with rocephin. 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 Colectomy with ileostomy was done on 06/05. Pt remained intubated and sedated after the surgery on levophed. Patient had very elevated WBC. Meropenem (06/06-06/16) and Micafungin (06/07-06/13) were given, in addition to metronidazole and PO vanc. Since the surgery, the patient's antibiotic courses have been completed. She has come off of vasopressors. She has remained very weak with critical illness myopathy, BUE audio visual collections coordinator strength 2/5 and BLE strength 2/5. She has been unable to wean off of the ventilator. Her prognosis remains poor. She has developed fevers of unknown source, blood and urine cultures were again drawn which show NGTD. CXR has intermittently shown pulmonary vascular congestion and she has been on lasix. Patient had an episode of Torsades, so QT prolonging agents have been held, and her magnesium has been closely monitored and replaced (goal >2). This was possibly the cause of syncope prior to admission. Palliative care was consulted. Family has been having a difficult time deciding when to extubate the patient, hoping she would recover. They do not want her to be trached. However they have decided that they will give her until Sunday to continue to wean off of the ventilator (06/23).
[2019-06-21] MEDS: Vancomycin HCl 25 MG/ML Oral PO SCH ×4 (00:05→16:50)
[2019-06-21 04:11] LABS: Anion Gap 11 mmol/L (10-20); BUN (Urea Nitrogen) 38 mg/dL (9.8-20.1); Calc. Creatinine Clearance 54 mL/min (70-130); Calcium 9.3 mg/dL (7.8-10.44); Carbon Dioxide 25 mmol/L (23-31); Chloride 110 mmol/L (98-107); Estimated GFR-MDRD 77; Glucose 139 mg/dL (83-110); Phosphorus 3.5 mg/dL (2.3-4.7); Potassium 4.6 mmol/L (3.5-5.1); Sodium 141 mmol/L (136-145)
[2019-06-21] MEDS: Magnesium Oxide 400 MG TAB PO PRN (04:54)
--- NOTE | 2019-06-21 06:35 | PDOC.FM ---
- Subjective Subjective: Seen at bedside this morning. Pt is resting comfortably. She is easily aroused, however quickly falls back asleep when not engaged. She will attempt to follow commands. Yesterday a discussion with palliative resulted in decision to extubate on Sunday. There were no acute events over night. No concerns from nursing. No fever for 24 hours - Objective MAR Reviewed: Yes Vital Signs & Weight: Vital Signs (12 hours) Temp Resp Pulse Ox 06/21/19 06:00 22 H 06/21/19 04:00 99.3 F 24 H 06/21/19 02:00 21 H 06/21/19 00:00 25 H 06/20/19 23:00 98.5 F 06/20/19 22:00 24 H 06/20/19 20:00 99 06/20/19 19:32 24 H 06/20/19 19:00 98.3 F Weight Admit Weight 56.835 kg Weight 60 kg Most Recent Monitor Data Heart Rate from ECG 70 NIBP 103/55 NIBP BP-Mean 71 Respiration from ECG 19 SpO2 98 I&O: 06/19/19 06/20/19 06/21/19 06:59 06:59 06:59 Intake Total 1816 1605 1245.9 Output Total 875 1435 1805 Balance 941 170 -559.1 Result Diagrams: 06/18/19 04:31 06/21/19 03:43 Phys Exam - Physical Examination Intubated, minimal sedation. HEENT: PERRLA, moist MMs Neck: supple Respiratory: clear to auscultation bilateral Cardiovascular: RRR 2/6 systolic murmur Gastrointestinal: soft, non-tender, no distention Musculoskeletal: no edema, pulses present Neurological: moves all 4 limbs Deviation from normal: Cannot evaluate Skin: no rash, normal turgor Dx/Plan (1) Acute respiratory failure with hypoxia Code(s): J96.01 - ACUTE RESPIRATORY FAILURE WITH HYPOXIA Status: Acute (2) C. difficile colitis Code(s): A04.72 - ENTEROCOLITIS D/T CLOSTRIDIUM DIFFICILE, NOT SPCF RECUR Status: Acute (3) Critical illness myopathy Code(s): G72.81 - CRITICAL ILLNESS MYOPATHY Status: Acute (4) Ileostomy in place Code(s): Z93.2 - ILEOSTOMY STATUS Status: Acute (5) Physical deconditioning Code(s): R53.81 - OTHER MALAISE Status: Acute (6) S/P colectomy Status: Acute (7) Syncope Code(s): R55 - SYNCOPE AND COLLAPSE Status: Acute Qualifiers: Syncope type: unspecified Qualified Code(s): R55 - Syncope and collapse (8) 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 Code(s): A04.72 - ENTEROCOLITIS D/T CLOSTRIDIUM DIFFICILE, NOT SPCF RECUR Status: Acute (9) UTI (urinary tract infection) Status: Acute Qualifiers: Urinary tract infection type: acute cystitis Hematuria presence: without hematuria Qualified Code(s): N30.00 - Acute cystitis without hematuria (10) HFrEF (heart failure with reduced ejection fraction) Code(s): I50.20 - UNSPECIFIED SYSTOLIC (CONGESTIVE) HEART FAILURE Status: Chronic Qualifiers: Heart failure chronicity: chronic Qualified Code(s): I50.22 - Chronic systolic (congestive) heart failure (11) Hypertension Code(s): I10 - ESSENTIAL (PRIMARY) HYPERTENSION Status: Chronic Qualifiers: Hypertension type: essential hypertension Qualified Code(s): I10 - Essential (primary) hypertension - Plan Plan: 1. Acute hypoxic respiratory failure requiring mechanical ventilation -Patient remains very weak, plan is to extubate in 2 days per family request -Palliative following -Morphine 2q4 for pain 2. Severe Critical Illness Myopathy -PT/OT consulted. Continue neuro chair 3. Fever 06/17 2/2 unknown source, resolved 4. Sepsis 2/2 C. diff colitis with ileus, resolved - S/p 10 days meropenem, 10 days PO vanc. Off precautions - S/p open colectomy with ileostomy and bilateral salpingectomy - ileostomy draining well -AWILDA draining clear yellow fluid 5. Orthostatic hypotension, hx syncope and fall -Original cc. Pt had run of torsades de pointes -Echo Shows EF 40-45% -Mg has been stable, no longer monitoring at this time -Avoid QT prolonging agents 6. Hyperglycemia, resolved -Non-diabetic, requiring insulin -Well controlled on Lantus 12 units sc, with SSI. 7. Severe Thrombocytopenia, resolved 8. HFrEF -AICD in place, turned off by company. -paced rhythm 9. A-fib -AICD, turned off -Holding Eliquis with recent fall, on lovenox ppx 10. HTN -Home meds held for hypotension 11. HLD -continue home atorvastatin 12. Depression -stop home citalopram due to QT prolonging agent -Potentially played part in [place] 13. Klebsiella pneumoniae UTI, resolved 14. VIRIDIANA, improved 15. Acidosis, resolved 16. Small AAA -CT shows AAA with 3.1cm dilation -Previous surgery for aorto-bifemoral bypass 17. Normocytic Anemia, stable -Likely 2/2 combination anemia of chronic disease, lab draws, and hemodilution -minimize blood draws Access: Rt Femoral Central line Code status: DNAR Dispo: Family plans palliative extubation on Sunday. Addendum - Attending - Attending Attestation Date/Time: 06/21/19 1613 I personally evaluated the patient and discussed the management with Dr. Lara I agree with the History, Examination, Assessment and Plan documented above with any addition or exceptions noted below. Patient afebrile last 24 hours plan trial CPAP and terminal extubation Sunday with family at bedside. Prognosis poor patient without sedation tolerating tube feeding.
--- NOTE | 2019-06-21 07:51 | RAD ---
XR Chest 1 View Portable History: Pneumonia Comparison: Radiograph prior day Findings: Bibasilar consolidation and pleural effusions are similar. Left lateral lower rib fractures . No pneumothorax. Endotracheal tube tip sits at the level of clavicles. Enteric tube tip below diaphragm although out o f field of view. Impression: Findings concerning for left lower lateral rib fractures which appear more displaced than previous exams which were radiographically occult.
--- NOTE | 2019-06-21 09:38 | PRG ---
DATE OF SERVICE: 06/21/2019 SUBJECTIVE: She is up in a chair. She looks about the same as she has looked. She continues on pressure support ventilation. OBJECTIVE: VITAL SIGNS: On exam, temperature is 99.3, pulse 70, blood pressure 103/55, and O2 saturation 98%. A 24-hour intake 1245, output 1805. HEENT: Unremarkable. NECK: No adenopathy or JVD. LUNGS: Poor air movement bilaterally. CARDIAC: S1 and S2. Regular. ABDOMEN: Soft. EXTREMITIES: No edema. NEUROLOGICAL: She still will not follow commands for me. LABORATORY DATA: Sodium 141, potassium 4.6, chloride 110, CO2 of 25, BUN 38, creatinine 0.7, and glucose 139. ASSESSMENT: Status quo. She has acute on chronic respiratory failure, which has not improved mainly because she has severe neuromuscular weakness. PLAN: I believe the family is going to compassionately extubate her on Sunday. Again, I do not think she will do well once extubated and I think she will pass away peacefully shortly thereafter. Above encompassed 35 minutes of critical care time. Job ID: [id number]
[2019-06-21] MEDS: Morphine 2 MG/ML SYRINGE SLOW IVP PRN (10:25)
[2019-06-21] MEDS: Acetaminophen 650 MG/20.3 ML UDCUP PO PRN (10:25)
[2019-06-21] MEDS: Famotidine/PF 20 mg/2ml Vial SLOW IVP SCH (10:26)
[2019-06-21] MEDS: Digoxin 0.125 MG TAB PO SCH (10:26)
[2019-06-21] MEDS: Metoprolol Tartrate 25 MG TAB PO SCH ×2 (10:27→20:05)
[2019-06-21] MEDS: Insulin Glargine 12 UNITS in Pre-Filled Syringe 1 EACH SC SCH (10:27)
[2019-06-21] MEDS: Enoxaparin Sodium 40 MG/0.4 ML SYRINGE SC SCH (10:27)
[2019-06-21] MEDS: Loperamide HCl 2 MG CAP PO SCH ×4 (10:27→20:05)
[2019-06-21] MEDS: HumaLOG 300 UNITS/3 ML VIAL SC PRN (11:35)
[2019-06-21] MEDS: Atorvastatin Calcium 20 MG TAB PO SCH (20:05)
[2019-06-22] MEDS: Morphine 2 MG/ML SYRINGE SLOW IVP PRN ×2 (01:35→09:02)
[2019-06-22] MEDS: Acetaminophen 650 MG/20.3 ML UDCUP PO PRN ×3 (01:39→23:56)
[2019-06-22 05:15] LABS: Anion Gap 13 mmol/L (10-20); BUN (Urea Nitrogen) 47 mg/dL (9.8-20.1); Calc. Creatinine Clearance 47 mL/min (70-130); Calcium 9.2 mg/dL (7.8-10.44); Carbon Dioxide 23 mmol/L (23-31); Chloride 109 mmol/L (98-107); Estimated GFR-MDRD 64; Glucose 142 mg/dL (83-110); Phosphorus 3.6 mg/dL (2.3-4.7); Potassium 4.5 mmol/L (3.5-5.1); Sodium 140 mmol/L (136-145)
[2019-06-22] MEDS: Magnesium Oxide 400 MG TAB PO PRN (05:19)
--- NOTE | 2019-06-22 06:59 | PDOC.FM ---
- Subjective Subjective: Seen at bedside this morning, pt is difficult to arouse. Over night there was one temp of 100.5, which improved with tylenol. No other concerns from nursing. She remains comfortable with minimal pain per nursing. - Objective Vital Signs & Weight: Vital Signs (12 hours) Temp Pulse Resp BP 06/22/19 06:00 16 06/22/19 04:00 14 06/22/19 03:00 99.4 F 06/22/19 02:00 14 06/22/19 01:44 PARTS FACILITATOR 85 111/49 L 06/22/19 01:00 PARTS FACILITATOR 100.5 F H 06/22/19 00:00 17 06/21/19 23:00 99.3 F 06/21/19 22:05 72 117/50 L 06/21/19 22:00 13 06/21/19 20:00 19 Weight Admit Weight 56.835 kg Weight 61.2 kg Most Recent Monitor Data Heart Rate from ECG 70 NIBP 110/55 NIBP BP-Mean 73 Respiration from ECG 11 SpO2 98 I&O: 06/20/19 06/21/19 06/22/19 06:59 06:59 05:59 Intake Total 1605 1245.9 1469 Output Total 1435 1805 1410 Balance 170 -559.1 59 Result Diagrams: 06/18/19 04:31 06/22/19 04:27 Phys Exam - Physical Examination Constitutional: NAD HEENT: moist MMs Respiratory: clear to auscultation bilateral Cardiovascular: RRR, no significant murmur Gastrointestinal: soft, non-tender, no distention Deviation from normal: Intubated, difficult to arouse Skin: no rash Dx/Plan (1) Acute respiratory failure with hypoxia Code(s): J96.01 - ACUTE RESPIRATORY FAILURE WITH HYPOXIA Status: Acute (2) C. difficile colitis Code(s): A04.72 - ENTEROCOLITIS D/T CLOSTRIDIUM DIFFICILE, NOT SPCF RECUR Status: Acute (3) Critical illness myopathy Code(s): G72.81 - CRITICAL ILLNESS MYOPATHY Status: Acute (4) Ileostomy in place Code(s): Z93.2 - ILEOSTOMY STATUS Status: Acute (5) Physical deconditioning Code(s): R53.81 - OTHER MALAISE Status: Acute (6) S/P colectomy Status: Acute (7) Syncope Code(s): R55 - SYNCOPE AND COLLAPSE Status: Acute Qualifiers: Syncope type: unspecified Qualified Code(s): R55 - Syncope and collapse (8) 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 Code(s): A04.72 - ENTEROCOLITIS D/T CLOSTRIDIUM DIFFICILE, NOT SPCF RECUR Status: Acute (9) UTI (urinary tract infection) Status: Acute Qualifiers: Urinary tract infection type: acute cystitis Hematuria presence: without hematuria Qualified Code(s): N30.00 - Acute cystitis without hematuria (10) HFrEF (heart failure with reduced ejection fraction) Code(s): I50.20 - UNSPECIFIED SYSTOLIC (CONGESTIVE) HEART FAILURE Status: Chronic Qualifiers: Heart failure chronicity: chronic Qualified Code(s): I50.22 - Chronic systolic (congestive) heart failure (11) Hypertension Code(s): I10 - ESSENTIAL (PRIMARY) HYPERTENSION Status: Chronic Qualifiers: Hypertension type: essential hypertension Qualified Code(s): I10 - Essential (primary) hypertension - Plan Plan: 1. Acute hypoxic respiratory failure requiring mechanical ventilation -Patient remains very weak, plan is to extubate tomorrow. It is very unlikely that she will be able to sustain her respirations without mechanical ventilation. Family is aware. -Palliative following -Morphine 2q4 for pain 2. Severe Critical Illness Myopathy -PT/OT consulted. Continue neuro chair 3. Fever 06/17 2/2 unknown source, resolved 4. Sepsis 2/2 C. diff colitis with ileus, resolved - S/p 10 days meropenem, 10 days PO vanc. Off precautions - S/p open colectomy with ileostomy and bilateral salpingectomy 5. Orthostatic hypotension, hx syncope and fall -Original cc. Pt had run of torsades de pointes -Echo Shows EF 40-45% -Mg has been stable, no longer monitoring at this time -Avoid QT prolonging agents 6. Hyperglycemia, resolved -Non-diabetic, requiring insulin -Well controlled on Lantus 12 units sc, with SSI. 7. Severe Thrombocytopenia, resolved 8. HFrEF -AICD in place, turned off by company. -paced rhythm 9. A-fib -AICD, turned off -Holding Eliquis with recent fall, on lovenox ppx 10. HTN -Home meds held for hypotension 11. HLD -continue home atorvastatin 12. Depression -stop home citalopram due to QT prolonging agent -Potentially played part in [place] 13. Klebsiella pneumoniae UTI, resolved 14. VIRIDIANA, improved 15. Acidosis, resolved 16. Small AAA -CT shows AAA with 3.1cm dilation -Previous surgery for aorto-bifemoral bypass 17. Normocytic Anemia, stable -Likely 2/2 combination anemia of chronic disease, lab draws, and hemodilution -minimize blood draws Access: Rt Femoral Central line Code status: DNAR Dispo: Family plans palliative extubation on Sunday. Addendum - Attending - Attending Attestation Date/Time: 06/22/19 2879 I personally evaluated the patient and discussed the management with Dr. Lara I agree with the History, Examination, Assessment and Plan documented above with any addition or exceptions noted below. [facility] prognosis guarded, Palliative care onboard for extubation in AM.
--- NOTE | 2019-06-22 07:52 | RAD ---
XR Chest 1 View Portable History: Pneumonia Comparison: Radiograph prior day Findings: Worsening right lower lobe consolidation. Similar effusions. Anterior tube tip sits at the level of the clavicles. Enteric tube tip below diaphragm although out o f field of view. AICD/pacer is similar. No acute osseous abnormality. No pneumothorax. Impression: Decreased right lower lobe aeration suggesting progressive pneumonia.
[2019-06-22] MEDS: Famotidine/PF 20 mg/2ml Vial SLOW IVP SCH (08:59)
[2019-06-22] MEDS: Metoprolol Tartrate 25 MG TAB PO SCH ×2 (09:00→20:06)
[2019-06-22] MEDS: Loperamide HCl 2 MG CAP PO SCH ×4 (09:00→20:06)
[2019-06-22] MEDS: Digoxin 0.125 MG TAB PO SCH (09:00)
[2019-06-22] MEDS: Enoxaparin Sodium 40 MG/0.4 ML SYRINGE SC SCH (09:00)
[2019-06-22] MEDS: Scopolamine 1.5 mg/72 hour Patch TD SCH (09:01)
[2019-06-22] MEDS: Insulin Glargine 12 UNITS in Pre-Filled Syringe 1 EACH SC SCH (09:04)
[2019-06-22] MEDS ORDERED: fentaNYL 50 mcg/hour Patch TD SCH (09:30)
--- NOTE | 2019-06-22 09:47 | PRG ---
DATE OF SERVICE: 06/22/2019 35 minutes of critical care time. SUBJECTIVE: The patient remains intubated on mechanical ventilation. There has been no acute changes overnight. She is up in a chair. Family is at bedside. OBJECTIVE: VITAL SIGNS: Temperature is 99.4 with T-max of 100.5, pulse 70, blood pressure 125/66, O2 saturation 94%. 24-hour intake 1469, output 1410. HEENT: Unremarkable. NECK: No adenopathy or JVD. LUNGS: Fairly clear anteriorly. CARDIAC: S1, S2. Regular. ABDOMEN: Soft. EXTREMITIES: No edema. NEUROMUSCULAR: She can move her feet. She would not move her arms appropriately. She does squeeze some with her hands today. LABORATORY DATA: Sodium 140, potassium 4.5, chloride 109, CO2 of 23, BUN 47, creatinine 0.8, glucose 142. ASSESSMENT: 1. Continued respiratory failure, requiring mechanical ventilation. 2. Profound neuromuscular weakness. 3. Status post colectomy with ileostomy after Clostridium difficile colitis. PLAN: The oral vancomycin has been stopped. I will give a fentanyl patch for comfort. The plan is to extubate tomorrow and not reintubate should she fail. The family is comfortable with that plan. Job ID: [id number]
[2019-06-22] MEDS: Atorvastatin Calcium 20 MG TAB PO SCH (20:06)
[2019-06-23] MEDS: Morphine 2 MG/ML SYRINGE SLOW IVP PRN (05:12)
[2019-06-23 05:53] LABS: Anion Gap 13 mmol/L (10-20); BUN (Urea Nitrogen) 48 mg/dL (9.8-20.1); Calc. Creatinine Clearance 51 mL/min (70-130); Calcium 9.4 mg/dL (7.8-10.44); Carbon Dioxide 22 mmol/L (23-31); Chloride 109 mmol/L (98-107); Estimated GFR-MDRD 71; Glucose 117 mg/dL (83-110); Phosphorus 3.6 mg/dL (2.3-4.7); Potassium 4.5 mmol/L (3.5-5.1); Sodium 139 mmol/L (136-145)
[2019-06-23] MEDS: Magnesium Oxide 400 MG TAB PO PRN (05:59)
--- NOTE | 2019-06-23 06:10 | PDOC.FM ---
- Subjective Subjective: NAEO. No concerns per nursing. Plan is to extubate patient today. - Objective MAR Reviewed: Yes Vital Signs & Weight: Vital Signs (12 hours) Temp Pulse Resp BP Pulse Ox 06/23/19 06:00 20 06/23/19 04:00 16 06/23/19 03:00 98.9 F 06/23/19 02:08 74 98/51 L 06/23/19 02:00 15 06/23/19 00:00 25 H 06/22/19 23:00 99.7 F H 06/22/19 22:08 70 103/48 L 06/22/19 22:00 15 06/22/19 20:00 17 06/22/19 19:16 99 06/22/19 19:00 98.1 F Weight Admit Weight 56.835 kg Weight 60.7 kg Most Recent Monitor Data Heart Rate from ECG 70 NIBP 121/60 NIBP BP-Mean 80 Respiration from ECG 22 SpO2 94 I&O: 06/21/19 06/22/19 06/23/19 07:59 06:59 06:59 Intake Total 1425 Output Total 1885 Balance -460 Result Diagrams: 06/18/19 04:31 06/23/19 05:19 Phys Exam - Physical Examination Constitutional: NAD HEENT: moist MMs, sclera anicteric Neck: supple Respiratory: clear to auscultation bilateral (anteriorly) Cardiovascular: RRR, no significant murmur, no rub Gastrointestinal: soft, no distention opens eyes to comman; does not move limbs today; responds to pain Skin: no rash, normal turgor, cap refill <2 seconds Dx/Plan (1) Acute respiratory failure with hypoxia Code(s): J96.01 - ACUTE RESPIRATORY FAILURE WITH HYPOXIA Status: Acute (2) C. difficile colitis Code(s): A04.72 - ENTEROCOLITIS D/T CLOSTRIDIUM DIFFICILE, NOT SPCF RECUR Status: Acute (3) Palliative care encounter Code(s): Z51.5 - ENCOUNTER FOR PALLIATIVE CARE Status: Acute (4) S/P colectomy Status: Acute (5) Syncope Code(s): R55 - SYNCOPE AND COLLAPSE Status: Acute Qualifiers: Syncope type: unspecified Qualified Code(s): R55 - Syncope and collapse (6) UTI (urinary tract infection) Status: Acute Qualifiers: Urinary tract infection type: acute cystitis Hematuria presence: without hematuria Qualified Code(s): N30.00 - Acute cystitis without hematuria (7) HFrEF (heart failure with reduced ejection fraction) Code(s): I50.20 - UNSPECIFIED SYSTOLIC (CONGESTIVE) HEART FAILURE Status: Chronic Qualifiers: Heart failure chronicity: chronic Qualified Code(s): I50.22 - Chronic systolic (congestive) heart failure (8) Hypertension Code(s): I10 - ESSENTIAL (PRIMARY) HYPERTENSION Status: Chronic Qualifiers: Hypertension type: essential hypertension Qualified Code(s): I10 - Essential (primary) hypertension - Plan Plan: 1. Acute hypoxic respiratory failure requiring mechanical ventilation -Patient remains very weak, plan is to extubate 06/23. It is very unlikely that she will be able to sustain her respirations without mechanical ventilation. Family is aware and agreeable to this plan. -Palliative following -Morphine 2q4 for pain 2. Severe Critical Illness Myopathy -PT/OT consulted. Continue neuro chair 3. Fever 06/17 2/2 unknown source, resolved 4. Sepsis /2 C. diff colitis with ileus, resolved - S/p 10 days meropenem, 10 days PO vanc. Off precautions. - S/p open colectomy with ileostomy and bilateral salpingectomy 5. Orthostatic hypotension, hx syncope and fall -Original cc. Pt had run of torsades de pointes -Echo Shows EF 40-45% -Mg has been stable -Avoid QT prolonging agents 6. Hyperglycemia, resolved -Non-diabetic, requiring insulin -Well controlled on Lantus 12 units sc, with SSI. 7. Severe Thrombocytopenia, resolved 8. HFrEF -AICD in place, turned off by company. -paced rhythm 9. A-fib -AICD, turned off -Holding Eliquis with recent fall, on lovenox ppx 10. HTN -Home meds held for hypotension 11. HLD -continue home atorvastatin 12. Depression -stop home citalopram due to QT prolonging agent -Potentially played part in [place] 13. Klebsiella pneumoniae UTI, resolved 14. VIRIDIANA, improved 15. Acidosis, resolved 16. Small AAA -CT shows AAA with 3.1cm dilation -Previous surgery for aorto-bifemoral bypass 17. Normocytic Anemia, stable -Likely 2/2 combination anemia of chronic disease, lab draws, and hemodilution -minimize blood draws Access: Rt Femoral Central line Code status: DNAR Dispo: Family plans palliative extubation on 06/23. Case discussed with Dr. Grayson
[2019-06-23] MEDS ORDERED: Lorazepam 2 MG/ML VIAL SLOW IVP PRN (07:36)
--- NOTE | 2019-06-23 08:27 | PRG ---
DATE OF SERVICE: 06/23/2019 35 minutes of critical care time. SUBJECTIVE: The patient remains intubated on mechanical ventilation. Today is the day that the family is supposed to withdraw care. OBJECTIVE: VITAL SIGNS: Temperature is 98.9, pulse 70, blood pressure 104/52, and O2 saturation 96%. GENERAL: She looks comfortable. She was actually able to move her left arm for me today. HEENT: Otherwise, unremarkable. NECK: No JVD. CHEST: Fairly clear. CARDIAC: S1, S2. Regular. ABDOMEN: Soft. EXTREMITIES: Severe muscle wasting. LABORATORY DATA: Sodium 139, potassium 4.5, chloride 109, CO2 of 22, BUN 48, creatinine 0.7, and glucose 117. ASSESSMENT: 1. The patient remains in chronic respiratory failure, requiring mechanical ventilation. 2. Profound neuromuscular weakness. 3. Status post colectomy with ileostomy after Clostridium difficile colitis. PLAN: Compassionate extubation is planned today with comfort care afterward. I have written for Ativan and morphine. She will be transferred to the floor after extubation. Job ID: [id number]
--- NOTE | 2019-06-23 09:22 | RAD ---
PORTABLE CHEST ONE VIEW: 06/23/2019 4:44 a.m. HISTORY: Pneumonia. Respiratory failure. FINDINGS: There is mild interval improvement in the right-sided pleural effusion since the last exam. The remai nder of the exam is stable. POS: OFF
[2019-06-23] MEDS: Loperamide HCl 2 MG CAP PO SCH (09:38)
[2019-06-23] MEDS: Insulin Glargine 12 UNITS in Pre-Filled Syringe 1 EACH SC SCH (09:38)
[2019-06-23] MEDS: Famotidine/PF 20 mg/2ml Vial SLOW IVP SCH (09:38)
[2019-06-23] MEDS: Enoxaparin Sodium 40 MG/0.4 ML SYRINGE SC SCH (09:38)
[2019-06-23] MEDS: Metoprolol Tartrate 25 MG TAB PO SCH (09:38)
[2019-06-23] MEDS: Digoxin 0.125 MG TAB PO SCH (09:38)
[2019-06-23] MEDS: Morphine 4 MG/ML VIAL SLOW IVP PRN (11:00)
--- NOTE | 2019-06-23 15:07 | PRG ---
DATE OF SERVICE: 06/23/2019 I reviewed the note of Dr. Thelma Mehta and agreed with her assessment and plan. Ms. Sousa has been extubated and will be transferred to a regular medical floor. Job ID: [id number]
[2019-06-24] MEDS: Morphine 2 MG/ML SYRINGE SLOW IVP PRN ×2 (01:50→21:04)
--- NOTE | 2019-06-24 06:21 | PDOC.FM ---
- Subjective Subjective: NAEO. Per the family, the patient was restless overnight and was grunting occasionally. They said this improved after she received some morphine. The daughter was at the bedside who said that she is wanting to do hospice if possible. - Objective MAR Reviewed: Yes Vital Signs & Weight: Vital Signs (12 hours) Temp Pulse Resp BP Pulse Ox 06/23/19 20:00 98.2 F 82 20 141/68 H 96 Weight Admit Weight 56.835 kg Weight 60.7 kg Most Recent Monitor Data Heart Rate from ECG 70 NIBP 120/55 NIBP BP-Mean 76 Respiration from ECG 29 SpO2 96 I&O: 06/22/19 06/23/19 06/24/19 06:59 06:59 06:59 Intake Total 1425 0 Output Total 1885 1125 Balance -460 -1125 Result Diagrams: 06/18/19 04:31 06/23/19 05:19 Phys Exam - Physical Examination Constitutional: NAD HEENT: sclera anicteric dry MM Neck: supple Respiratory: no wheezing, clear to auscultation bilateral anteriorly Cardiovascular: RRR, no significant murmur Gastrointestinal: soft, non-tender, no distention, positive bowel sounds Musculoskeletal: pulses present able to move L arm slightly towards abdomen; open eyes when asked grunting noted on exam Skin: no rash, normal turgor, cap refill <2 seconds Dx/Plan (1) Acute respiratory failure with hypoxia Code(s): J96.01 - ACUTE RESPIRATORY FAILURE WITH HYPOXIA Status: Acute (2) C. difficile colitis Code(s): A04.72 - ENTEROCOLITIS D/T CLOSTRIDIUM DIFFICILE, NOT SPCF RECUR Status: Acute (3) Palliative care encounter Code(s): Z51.5 - ENCOUNTER FOR PALLIATIVE CARE Status: Acute (4) S/P colectomy Status: Acute (5) Syncope Code(s): R55 - SYNCOPE AND COLLAPSE Status: Acute Qualifiers: Syncope type: unspecified Qualified Code(s): R55 - Syncope and collapse (6) UTI (urinary tract infection) Status: Acute Qualifiers: Urinary tract infection type: acute cystitis Hematuria presence: without hematuria Qualified Code(s): N30.00 - Acute cystitis without hematuria (7) HFrEF (heart failure with reduced ejection fraction) Code(s): I50.20 - UNSPECIFIED SYSTOLIC (CONGESTIVE) HEART FAILURE Status: Chronic Qualifiers: Heart failure chronicity: chronic Qualified Code(s): I50.22 - Chronic systolic (congestive) heart failure (8) Hypertension Code(s): I10 - ESSENTIAL (PRIMARY) HYPERTENSION Status: Chronic Qualifiers: Hypertension type: essential hypertension Qualified Code(s): I10 - Essential (primary) hypertension - Plan Plan: 1. Acute hypoxic respiratory failure requiring mechanical ventilation - patient extubated on 06/23 and comfort measures initiated - Palliative following, Hospice consulted 06/24 - Morphine for pain, ativan PRN 2. Severe Critical Illness Myopathy - comfort measures 3. Small AAA - CT shows AAA with 3.1cm dilation - Previous surgery for aorto-bifemoral bypass 4. Normocytic Anemia, stable - no longer doing blood draws 5. Chronic conditions including: HTN, HLD, Depression, A fib, HFrEF - all home meds cancelled due to comfort measures 6. Issues that have resolved throughout this hospital course: acidosis, VIRIDIANA, UTI , Hyperglycemia, sepsis 2/2 C diff colitis w/ ileus, fever with unknown source on 06/17, thrombocytopenia, orthostatic hypotension Code status: DNAR Dispo: patient on comfort measures, Palliative and Hospice Care consulted Case discussed with Dr. Grayson
[2019-06-24] MEDS: Morphine 4 MG/ML VIAL SLOW IVP PRN ×2 (07:43→14:48)
--- NOTE | 2019-06-24 10:47 | PRG ---
DATE OF SERVICE: 06/24/2019 Ms. Sousa is lethargic to obtunded. Her family has chosen no further aggressive measures and wants comfort palliative care only. Job ID: [id number]
[2019-06-24 12:55] VITALS: BMI 22.9
[2019-06-24 20:33] VITALS: BP 123/72; TEMP 98.8
--- NOTE | 2019-06-25 12:19 | DIS ---
DATE OF ADMISSION: 06/03/2019 DATE OF DISCHARGE: 06/24/2019 RESIDENT: Thelma Mehta MD ADMITTING ATTENDING: Nayeli Walker MD DISCHARGE ATTENDING: Cecilio Grayson MD CONSULT: Cardiology and General surgery, Pulmonology, Palliative Care, Hospice, PT/OT, Wound Care. PROCEDURES: 1. NM Stress Test 06/02 - EF 39%, large fixed defect involving the lateral wall involving the inferior lateral, ant lateral and apical lateral regions, mild periinfarct reversible ischemia in the ant apical portion of this lateral wall defect that cannot be excluded; global hypokinesis, lateral dyskinesis. 2. Echo 06/02 - EF 40-45%, LA severely dilated, mod enlarged right atrium, mod mitral regurg, aortic valve sclerosis, mod aortic regurg, mild-mod tricuspid regurg. 3. Ex lap with subtotal colectomy and ileostomy creation and b/l salpingectomy on 06/06 PRIMARY DIAGNOSES: 1. Acute hypoxic respiratory failure requiring mechanical ventilation 2. severe critical illness myopathy 3. toxic megacolon 4. abdominal aortic 5. aneurysm 6. normocytic anemia 7. acute kidney injury 8. urinary tract infection 9. hyperglycemia 10. sepsis secondary to Clostridium difficile colitis 11. thrombocytopenia. SECONDARY DIAGNOSES: 1. Hypertension 2. hyperlipidemia 3. depression 4. atrial fibrillation 5. HFrEF 6. orthostatic hypotension. DISCHARGE MEDICATIONS: 1. Ativan 2 mg IV every 1 hour as needed. 2. Morphine 4 mg IV every 15 minutes as needed. DISCONTINUED MEDICATIONS: 1. Nitrostat 0.4 mg sublingual every 5 minutes. 2. Spironolactone 12.5 mg oral daily. 3. K-Dur 20 mEq oral daily. 4. Celexa 10 mg oral daily. 5. Losartan 25 mg oral daily. 6. Lipitor 20 mg oral daily. 7. Fenofibrate 160 mg oral daily. 8. Clopidogrel 75 mg oral daily. 9. Metoprolol 25 mg oral twice daily. 10. Vitamin E 400 units oral daily. 11. Multivitamin one daily. 12. Furosemide 40 mg oral daily. 13. Digoxin 125 mcg oral daily. 14. Eliquis 2.5 mg oral twice daily. HISTORY OF PRESENT ILLNESS/HOSPITAL COURSE: This is an unfortunate 83yo F who presented to the ER after a syncopal episode. She was also complaining of abdominal pain and hx of decreased appetite for several days. . Murphy-CT negative for acute pathology. She was found to have a UTI as well. Patient's kidney fxn was also bumped from baseline. She was given 2g rocephin and IVF in the ER She was admitted to the telemetry floor under observation for stress and echo the next day. Over the next several days, the patient was found to have an abnormal stress test and echocardiogram. Pace maker interrogated and showed no events. Cardiology was consulted. EP consulted. Patient found to have 15seconds of torsades on 06/04 and was given mag. She also was noted to be in resp distress and was started on bipap. She started having episodes of diarrhea on the 4th day of admission and C diff studies were ordered and found to be positive. She was started on oral vancomycin and IV metronidazole. NG tube placed on intermittant suction. On 06/05, a code green was called on the patient due to O2 sats being in the 70s on 2L NC. KUB showed ileus vs obstruction vs toxic megacolon. pH 7.22 and PCO2 of 44[address] Dr. Lin (pulm) and Dr. Galeana (gen surgery) consulted at this time. Patient was intubated at this time. The patient daughters changed the patient's code status at this time to DNR. Patient underwent surg with Dr. Galeana as above. Patient remained intubated and on abx. She was also requiring pressure support. She was eventually weened off of the pressure support. Abx course was completed. Over the next couple of weeks the patient remained too weak to ween off the ventilator. It was decided on 06/23 to terminally extubate the patient. she remained vitally stable and was moved to the medical floor. Comfort measures were instituted at this time. Palliative care had been consulted early on in the course and working with family. It was decided the patient would go to inpatient hospice. She was discharged to their care in stable, but guarded condition. DISPOSITION: Guarded. DISCHARGE INSTRUCTIONS: 1. Location: Inpatient hospice. 2. Diet: Regular. 3. Activity: Ad sushant. 4. The patient will be followed up with hospice care. Job ID: [id number] [facility]
--- NOTE | 2019-06-26 08:40 | PQF ---
ALEX ALVARADO SCOTT E MD [id number] CLINICAL DOCUMENTATION CLARIFICATION FORM: POST DISCHARGE Addendum to original discharge summary date: ____ Late entry note date: __ DATE:06/26/2019 ATTN:MAURO AHN MD Please exercise your independent, professional judgment in responding to the clarification form. Clinical indicators are provided on the bottom of this form for your review Please check appropriate box(s): [ ] Abdominal pain is due to Clostridium difficile colitis [ ] Abdominal pain is due to Toxic megacolon [ ] Abdominal pain is due to Acute cystitisI [ ] Abdominal pain NOS [ ] Other diagnosis [ ] Unable to determine In addition, please specify: Present on Admission (POA): [ ] Yes [ ] No [ ] Unable to determine For continuity of documentation, please document condition throughout progress notes and discharge summary. Thank You. CLINICAL INDICATORS - SIGNS / SYMPTOMS / LABS Acute cystitis without hematuria-Documented in H&P on 06/01 by Alyse Patino UTI-UA 500 LE,30 protein,21-50 WBC,B act 4+,Given rocephin 2g in ED-Documented in H&P on 06/01 by Alyse Patino Sepsis 2/2 C diff colitis with ileus- Documented in Family medicine PN on 06/05 by Narendra Kumar Toxic megacolon secondary to Clostridium difficile colitis with progressive hemodynamic compromise-Documented in OP on 06/05 by Marc Galeana RISK FACTORS Acute respiratory failure with hypoxia- Documented in Family medicine PN on by Narendra Kumar Sepsis 2/2 C diff colitis with ileus- Documented in Family medicine PN on 06/05 by Narendra Kumar TREATMENTS: Currently on PO vancomycine,Although pt had NG tube on intermitant suction- Documented in Family medicine PN on 06/05 by Narendra Kumar IV metronidazole- Documented in Family medicine PN on 06/05 by Narendra Kumar Exploratory laparotomy with subtotal colectomy and ileostomy ceartion- Documented in Family medicine PN on 06/05 by Narendra [employer] Winform Viewer (This form is maintained as a part of the permanent medical record) 2014 [employer]. All Rights Reserved [email or web address] [not provided] [email or web address]
== END 2019-06-24 21:15 | disposition hospice, inpatient (51) | DRG 329 ==
LOC: ERS 20:40 → 2SW 22:53 → OBSVTOIN 06-03 10:45 → 2NO 06-03 16:06 → CCU 06-05 04:20 → T4-A 06-23 11:33
PROVIDERS: ADMIT Student in an Organized Health Care Education/Training Program; ATTEND Student in an Organized Health Care Education/Training Program
PROC: 4B02XTZ Measurement of Cardiac Defibrillator, External Approach (ICD-10-PCS; principal; 2019-06-03)
PROC: 0D1B0Z4 Bypass Ileum to Cutaneous, Open Approach (ICD-10-PCS; 2019-06-05)
PROC: 0UT70ZZ Resection of Bilateral Fallopian Tubes, Open Approach (ICD-10-PCS; 2019-06-05)
PROC: 0DBE0ZZ Excision of Large Intestine, Open Approach (ICD-10-PCS; 2019-06-05)
PROC: 02HV33Z Insertion of Infusion Device into Superior Vena Cava, Percutaneous Approach (ICD-10-PCS; 2019-06-05)
PROC: 0BH17EZ Insertion of Endotracheal Airway into Trachea, Via Natural or Artificial Opening (ICD-10-PCS; 2019-06-16)
PROC: 5A1955Z Respiratory Ventilation, Greater than 96 Consecutive Hours (ICD-10-PCS; 2019-06-16)
DX: R10.30 Lower abdominal pain, unspecified (principal); A41.9 Sepsis, unspecified organism; J96.01 Acute respiratory failure with hypoxia; E43 Unspecified severe protein-calorie malnutrition; N30.00 Acute cystitis without hematuria; I13.0 Hypertensive heart and chronic kidney disease with heart failure and stage 1 through stage 4 chronic kidney disease, or unspecified chronic kidney disease; I50.22 Chronic systolic (congestive) heart failure; I42.9 Cardiomyopathy, unspecified; A04.72 Enterocolitis due to Clostridium difficile, not specified as recurrent; K56.7 Ileus, unspecified; E87.2 Acidosis; N17.9 Acute kidney failure, unspecified; I95.1 Orthostatic hypotension; E86.0 Dehydration; I71.4 Abdominal aortic aneurysm, without rupture; E78.5 Hyperlipidemia, unspecified; I48.91 Unspecified atrial fibrillation; R91.1 Solitary pulmonary nodule; Z95.810 Presence of automatic (implantable) cardiac defibrillator; N18.9 Chronic kidney disease, unspecified; F32.9 Major depressive disorder, single episode, unspecified; I25.10 Atherosclerotic heart disease of native coronary artery without angina pectoris; E83.42 Hypomagnesemia; E87.6 Hypokalemia; E83.39 Other disorders of phosphorus metabolism; B96.1 Klebsiella pneumoniae [K. pneumoniae] as the cause of diseases classified elsewhere; Z51.5 Encounter for palliative care; D69.6 Thrombocytopenia, unspecified; Z66 Do not resuscitate; Z68.23 Body mass index [BMI] 23.0-23.9, adult; G72.9 Myopathy, unspecified
CPT/HCPCS: 36415; 36416; 51701; 70450; 70486; 71045; 71260; 72125; 74018; 74176; 74177; 78452; 80048; 80053; 80162; 81003; 81015; 82247; 82553; 82805; 83605; 83690; 83735; 83880; 84075; 84100; 84134; 84155; 84450; 84460; 84484; 85025; 85060; 85610; 85730; 87040; 87070; 87071; 87077; 87086; 87186; 87205; 87324; 87449; 88305; 88307; 90471; 90670; 90715; 93005; 93010; 93017; 93306; 94002; 94003; 94150; 94660; 96365; A4353; A9500; C9113; G0009; J0153; J0171; J0696; J1100; J1200; J1644; J1650; J1815; J1940; J1956; J2060; J2185; J2248; J2250; J2270; J2405; J2704; J3010; J3475; J3480; J3490; J7070; J7626; P9045; P9047; Q9966; S0028